=== PATIENT | male | born 1940 | race Caucasian/White ===

== ENCOUNTER → 2016-08-18 | Outpatient (REF) | payer MEDICARE, MEDICAID | LOC: M LAB REF 09:45 | PROVIDERS: ATTEND Internal Medicine Medical Oncology | DX: C95.90 Leukemia, unspecified not having achieved remission (principal) ==

== ENCOUNTER → 2017-06-20 | Outpatient (REF) | payer MEDICARE, MEDICAID | LOC: M LAB REF 12:53 | DX: D70.9 Neutropenia, unspecified (principal) | CPT/HCPCS: 88300 ==

== ENCOUNTER 2019-04-01 15:59 | Emergency (ER) | payer MEDICARE, MEDICAID ==
[~2019-04-01] VITALS: Ht 188 cm; Wt 60.9 kg
[2019-04-01] MEDS ORDERED: FURO20TA2 PO (17:51)
[2019-04-01] MEDS ORDERED: COLE625TAB PO (17:51)
[2019-04-01] MEDS ORDERED: POTA10CA32 PO (17:51)
[2019-04-01 18:07] LABS: HEMATOCRIT 30.2 % (42.0-52.0); HEMOGLOBIN 9.7 g/dl (13.5-17.5); MEAN CORPUSCULAR HEMOGLOBIN 36.5 pg (27.0-33.0); MEAN CORPUSCULAR HGB CONC 32.1 g/dl (32.0-36.5); MEAN CORPUSCULAR VOLUME 113.5 fl (80.0-96.0); RED BLOOD COUNT 2.66 10^6/uL (4.30-6.10)
--- NOTE | 2019-04-01 18:20 | REP ---
PA and lateral chest: There are no comparisons. Lung harris are hyperinflated. There are no infiltrates. No pleural effusions. There are no masses or nodules. Cardiac size is normal. The joselito and mediastinum unremarkable. There is diffuse demineralization. There is an age indeterminate fracture of the right humeral neck. Impression: Hyperinflation. No infiltrate, effusion or mass. Age indeterminate fracture of the right humeral neck. Electronically Signed by Brian Kemp MD 04/01/2019 06:12 P
[2019-04-01 18:33] LABS: ACETAMINOPHEN LEVEL < 2.0 UG/ML (10.0-30.0); ALBUMIN 3.4 GM/DL (3.2-5.2); ALT/SGPT 14 U/L (12-78); BILIRUBIN,DIRECT < 0.1 MG/DL (0.0-0.2); BILIRUBIN,TOTAL 0.3 MG/DL (0.2-1.0); BLOOD UREA NITROGEN 18 MG/DL (7-18); CALCIUM LEVEL 8.1 MG/DL (8.8-10.2); CARBON DIOXIDE LEVEL 28 MEQ/L (21-32); CHLORIDE LEVEL 107 MEQ/L (98-107); CREATININE FOR GFR 0.87 MG/DL (0.70-1.30); ETHYL ALCOHOL (ETHANOL) < 0.003 % (0.000-0.010); GLOMERULAR FILTRATION RATE > 60.0 (>42); GLUCOSE, FASTING 82 MG/DL (70-100); POTASSIUM SERUM 4.2 MEQ/L (3.5-5.1); SALICYLATE LEVEL < 1.7 MG/DL (5.0-30.0); SODIUM LEVEL 140 MEQ/L (136-145); TOTAL PROTEIN 6.3 GM/DL (6.4-8.2)
[2019-04-01 18:38] LABS: PLATELET COUNT, AUTOMATED 70 10^3/uL (150-450); WHITE BLOOD COUNT 1.1 10^3/uL (4.0-10.0)
[2019-04-01 19:15] VITALS: BP 114/68
== END 2019-04-01 20:31 | disposition home or self-care (01) ==
LOC: M ED 15:59
DX: D70.9 Neutropenia, unspecified (principal); D69.6 Thrombocytopenia, unspecified; I51.9 Heart disease, unspecified; F79 Unspecified intellectual disabilities; Z79.899 Other long term (current) drug therapy
CPT/HCPCS: 36415; 71046; 80048; 80076; 84443; 85027; 85049; 85055; 86850; 86900; 86901; 99284; G0480

== ENCOUNTER → 2020-06-08 | Outpatient (REF) | payer MEDICARE, MEDICAID ==
[~2020-06-08] MED LIST: CIPR-249 PO; COLE625TAB PO; FURO20TA2 PO; POTA10CA32 PO
[2020-06-08 12:58] LABS: HEMATOCRIT 26.1 % (42.0-52.0); HEMOGLOBIN 8.5 g/dl (13.5-17.5); MEAN CORPUSCULAR HEMOGLOBIN 39.4 pg (27.0-33.0); MEAN CORPUSCULAR HGB CONC 32.6 g/dl (32.0-36.5); RED BLOOD COUNT 2.16 10^6/uL (4.30-6.10)
[2020-06-08 13:17] LABS: MEAN CORPUSCULAR VOLUME 120.8 fl (80.0-96.0); PLATELET COUNT, AUTOMATED 77 10^3/uL (150-450)
[2020-06-08 13:39] LABS: ALBUMIN 3.4 GM/DL (3.2-5.2); ALT/SGPT 19 U/L (12-78); BILIRUBIN,TOTAL 0.4 MG/DL (0.2-1.0); BLOOD UREA NITROGEN 21 MG/DL (7-18); CALCIUM LEVEL 8.5 MG/DL (8.8-10.2); CARBON DIOXIDE LEVEL 32 MEQ/L (21-32); CHLORIDE LEVEL 104 MEQ/L (98-107); CHOLESTEROL LEVEL 173 MG/DL (<200); CHOLESTEROL RISK RATIO 2.306 (<5); CREATININE FOR GFR 0.86 MG/DL (0.70-1.30); GLOMERULAR FILTRATION RATE > 60.0 (>35); GLUCOSE, FASTING 90 MG/DL (70-100); HDL CHOLESTEROL 75 MG/DL (>40); LDL CHOLESTEROL 87 MG/DL (<100); NON-HDL-C 98 MG/DL; POTASSIUM SERUM 4.5 MEQ/L (3.5-5.1); SODIUM LEVEL 139 MEQ/L (136-145); TOTAL PROTEIN 6.7 GM/DL (6.4-8.2); TRIGLYCERIDES LEVEL 54 MG/DL (<150)
[2020-06-08 13:41] LABS: ATYPICAL LYMPH 4 % (0-5); BASOPHILS 1 % (0-1); EOSINOPHILS 2 % (0-3); LYMPHOCYTES 55 % (16-44); NEUTROPHILS 34 % (28-66)
[2020-06-08 13:42] LABS: ANISOCYTOSIS 1+; PLATELET ESTIMATE DECREASED (NORMAL)
[2020-06-08 13:43] LABS: MICROCYTOSIS 3+
== END ==
LOC: M SFHCADAM 08:02
PROVIDERS: ATTEND Physician Assistant Medical
DX: D61.9 Aplastic anemia, unspecified (principal); E78.2 Mixed hyperlipidemia

== ENCOUNTER 2020-11-10 10:35 | Inpatient (IN) | payer MEDICARE, MEDICAID ==
[~2020-11-10] VITALS: Ht 182.9 cm; Wt 57.9 kg
[2020-11-10 11:36] LABS: EOS % 1.1 % (0.0-3.0); HEMOGLOBIN 8.1 g/dl (13.5-17.5); LYMPH # 0.3 10^3/uL (1.5-5.0); LYMPH % 31.5 % (24.0-44.0); MEAN CORPUSCULAR HEMOGLOBIN 36.7 pg (27.0-33.0); MEAN CORPUSCULAR HGB CONC 32.4 g/dl (32.0-36.5); MEAN CORPUSCULAR VOLUME 113.1 fl (80.0-96.0); MONO % 3.4 % (2.0-8.0); NEUTROPHILS % 62.9 % (36.0-66.0); RED BLOOD COUNT 2.21 10^6/uL (4.30-6.10)
[2020-11-10 11:47] LABS: NEUTROPHILS # 0.6 10^3/uL (1.5-8.5); PLATELET COUNT, AUTOMATED 44 10^3/uL (150-450); WHITE BLOOD COUNT 0.9 10^3/uL (4.0-10.0)
[2020-11-10 11:59] LABS: ALBUMIN 2.4 GM/DL (3.2-5.2); BILIRUBIN,DIRECT 0.2 MG/DL (0.0-0.2); TOTAL PROTEIN 6.1 GM/DL (6.4-8.2)
[2020-11-10] MEDS ORDERED: NS 1,000 ML IV ONE (12:30)
[2020-11-10] MEDS ORDERED: ACETAMINOPHEN 325 MG TAB PO ONE (12:30)
[2020-11-10 13:18] LABS: INR 1.11; PROTHROMBIN TIME 14.7 SECONDS (12.7-14.5)
[2020-11-10 13:42] LABS: RSV AMPLIFICATION NEGATIVE (NEGATIVE)
--- NOTE | 2020-11-10 13:43 | REP ---
INDICATION: abd pain. COMPARISON: Chest 04/01/2019. TECHNIQUE: Cross-table lateral and supine films of the abdomen and pelvis, frontal view chest. FINDINGS: There is no evidence of free intraperitoneal air and no compelling evidence for small bowel obstruction. Moderate air and fecal material scattered throughout the colon. Air is seen in several nondilated small bowel loops. No abnormal calcifications are visualized except for apparent phleboliths in the left pelvis. There are degenerative changes of the spine. There is infiltrate in the left upper lobe. The heart is not enlarged. The mediastinal silhouette is unremarkable. IMPRESSION: No evidence of free intraperitoneal air or obstruction. Left upper lobe infiltrate. <Electronically signed by Brian Liu > 11/10/20 [id number]
[2020-11-10 13:46] LABS: ALBUMIN 2.4 GM/DL (3.2-5.2); BILIRUBIN,DIRECT 0.3 MG/DL (0.0-0.2)
[2020-11-10] MEDS ORDERED: AZITHROMYCIN INJ 500 MG, VIAL MATE ADAPTER 1 EACH in NS 250 ML IV ONE (13:50)
[2020-11-10] MEDS ORDERED: cefTRIAXone SOD 1 GM in D5W MINI-BAG PLUS 50 ML IV ONE (13:50)
[2020-11-10] MEDS ORDERED: HOME MED LIST COMPLETE! XX SCH (14:20)
[2020-11-10] MEDS ORDERED: VITMTA PO (14:20)
[2020-11-10] MEDS ORDERED: ACETAMINOPHEN TAB 650MG DOSE (2X325MG) PO PRN (14:35)
[2020-11-10] MEDS ORDERED: ISOVUE-370 76% 100ML VIAL As Ordered ONE (14:42)
--- NOTE | 2020-11-10 14:58 | HPEPDOC ---
General Date of Admission 11/10/20 Date of Service: Nov 10, 2020 Chief Complaint The patient is a 80-year-old male admitted with a reason for visit of Diarrhea Weakness. Exam Limitations: Mild cognitive slowing History of Present Illness Patient is 80 years old male with past medical history aplastic anemia, cognitive disability, hyperlipidemia presented to hospital with generalized weakness. According to his sister for past 3 to 4 days patient developed generalized weakness with loss of appetite. According to her patient did not have any cough, fever, chills or dysuria. She stated he had up to 3 liquid bowel movements yesterday. Of note, patient follows by Dr. Chi for aplastic anemia In ER patient was found to have white blood count of 0.9, hemoglobin 8.1, platel et count of 44, sodium of 138, potassium 3.6. Abdominal/pelvis x-ray showed No evidence of free intraperitoneal air or obstruction. Left upper lobe infiltrate Home Medications Scheduled Colesevelam Hydrochloride (Welchol) 625 Mg Tablet, 625 MG PO DAILY, (Reported) Furosemide (Furosemide) 20 Mg Tablet, 20 MG PO DAILY, (Reported) Multivitamins (Thera M Plus Tablet) 1 Each Tablet, 1 TAB PO DAILY, (Reported) Potassium Chloride (Potassium Chloride) 10 Meq Capsule.er, 10 MG PO DAILY, (Reported) Allergies Coded Allergies: No Known Allergies (Unverified , 04/01/19) Past Medical History Medical History Aplastic anemia, hyperlipidemia, congenital cognitive impairment Surgical History Colonoscopy, findings of hemorrhoids Family History The patient's mother at the age of 40 from myocardial infarction. The patient's father at the age of 79 with a history of lung cancer and organic heart disease associated with tobacco use. Social History * Smoker: former Smoker Alcohol: Denies Drugs: denies A-FIB/CHADSVASC A-FIB History Current/History of A-Fib/PAF?: No Current PO Anticoag Therapy: No Review of Systems Constitutional: Reports: Fatigue; Denies: Chills, Fever Eyes: Denies: Pain ENT: Denies: Head Aches Skin: Denies: Rash Pulmonary: Denies: Dyspnea, Cough Cardiovascular: Denies: Chest Pain Gastrointestinal: Denies: Nausea Genitourinary: Denies: Dysuria Hematologic: Denies: Bruising Endocrine: Denies: Polydipsia Musculoskeletal: Denies: Neck Pain Neurological: Denies: Weakness Psych: Reports: Mood Normal Physical Examination General Exam: Positive: Alert, Cooperative Eye Exam: Positive: PERRLA ENT Exam: Positive: Atraumatic Neck Exam: Positive: Supple; Negative: JVD Chest Exam: Positive: Clear to auscultation Telemetry: Positive: No significant arrhythmia Abdomen Exam: Positive: Normal bowel sounds Extremity Exam: Negative: Clubbing Skin Exam: Positive: Nl turgor and temperature Neuro Exam: Positive: Cranial Nerves 3-12 NL Psych Exam: Negative: Oriented x 3 Vital Signs Vital Signs Date Time Temp Pulse Resp B/P (MAP) Pulse Ox O2 Delivery O2 Flow Rate FiO2 11/10/20 14:15 85 18 146/69 (94) 98 Room Air 11/10/20 10:48 99.7 Laboratory Data Labs 24H Laboratory Tests 2 11/10/20 11:21: Immature Granulocyte % (Auto) 1.1, Neutrophils (%) (Auto) 62.9, Lymphocytes (%) (Auto) 31.5, Monocytes (%) (Auto) 3.4, Eosinophils (%) (Auto) 1.1, Basophils (%) (Auto) 0.0, Neutrophils # (Auto) 0.6L, Lymphocytes # (Auto) 0.3L, Monocytes # (Auto) 0.0, Eosinophils # (Auto) 0.0, Basophils # (Auto) 0.0, Nucleated Red Blood Cells % (auto) 0.0, Immature Platelet Fraction 2.0, Total Bilirubin 1.0, Direct Bilirubin 0.2, Aspartate Amino Transf (AST/SGOT) 18, Alanine Aminotransferase (ALT/SGPT) 15, Alkaline Phosphatase 59, Total Protein 6.1L, Albumin 2.4L, Albumin/Globulin Ratio 0.6, Lipase 67L 11/10/20 11:22: POC Glucose (Misc Panel) 101, POC Sodium (Misc Panel) 138, POC Potassium (Misc Panel) 3.6, POC Chloride (Misc Panel) 98, POC Total CO2 (Misc Panel) 29.0H, POC Blood Urea Nitrogen (Misc Panel 21, POC Ionized Calcium (Misc Panel) 4.3L, POC Creatinine (Misc Panel) 0.8, POC Hematocrit (Misc Panel) 22.0L 11/10/20 12:54: Total Bilirubin 1.0, Direct Bilirubin 0.3H, Aspartate Amino Transf (AST/SGOT) 16, Alanine Aminotransferase (ALT/SGPT) 14, Alkaline Phosphatase 59, Total Protein 6.0L, Albumin 2.4L, Albumin/Globulin Ratio 0.7, Prothrombin Time 14.7H, Prothromb Time International Ratio 1.11, Coronavirus (COVID-19)(PCR) NEGATIVE, Influenza Type A (RT-PCR) NEGATIVE, Influenza Type B (RT-PCR) NEGATIVE, Respiratory Syncytial Virus (PCR) NEGATIVE CBC/BMP Laboratory Tests 11/10/20 11:21 Microbiology Microbiology 11/10/20 Blood Culture, Received Pending 11/10/20 Blood Culture, Received Pending Assessment/Plan Patient is 80 years old male with past medical history aplastic anemia, cognitive disability, hyperlipidemia presented to hospital with generalized weakness. According to his sister for past 3 to 4 days patient developed generalized weakness with loss of appetite. According to her patient did not have any cough, fever, chills or dysuria. She stated he had up to 3 liquid bowel movements yesterday. Of note, patient follows by Dr. Chi for aplastic anemia In ER patient was found to have white blood count of 0.9, hemoglobin 8.1, platelet count of 44, sodium of 138, potassium 3.6. Abdominal/pelvis x-ray showed No evidence of free intraperitoneal air or obstruction. Left upper lobe infiltrate Problems (1) Pancytopenia Status: Acute Problem Text: Secondary to aplastic anemia We will check blood culture, CT chest/abdomen/pelvis, procalcitonin, lactic acid I talked to Dr. Chi he recommended to start Neupogen 480 mg for 4 days. (2) Hyperlipidemia Status: Chronic Problem Text: Continue statin (3) Aplastic anemia Status: Chronic Problem Text: Follow-up with blacking wheel tender/oncologist in the outpatient settings (4) Physical deconditioning Status: Chronic Problem Text: PT/OT Plan / VTE VTE Prophylaxis Ordered?: No VTE Exclusion Pharmacological: Thrombocytopenia HARJINDER NGUYEN DO Nov 10, 2020 14:58
--- NOTE | 2020-11-10 15:51 | REP ---
INDICATION: Malignancy. COMPARISON: None. TECHNIQUE: Standard helical technique after the intravenous administration of 100 cc Isovue 370. FINDINGS: There is a small left pleural effusion. The liver, gallbladder, spleen, pancreas, adrenal glands are within normal limits. There is mild bilateral hydronephrosis. The abdominal aorta and para-aortic regions are within normal limits. There is no evidence of free free fluid or free air. The bowel loops are within normal limits. Retained barium is seen in the right colon and transverse colon from a previous radiographic procedure. I have no history or details. There is distention of the urinary bladder and likely responsible for the mild bilateral hydronephrosis. Bone window technique throughout the examination shows spinal, hip, sacroiliac joint degenerative changes. IMPRESSION: 1. Urinary bladder distension and mild bilateral hydronephrosis. 2. Small left pleural effusion. <Electronically signed by Jewel Orr > 11/10/20 [id number]
--- NOTE | 2020-11-10 15:53 | REP ---
INDICATION: Malignancy. COMPARISON: CT 06/19/2013. radiograph today. TECHNIQUE: CT chest performed following the intravenous administration of 100 cc of Isovue 370. Sagittal and coronal reconstruction images are performed. FINDINGS: Lungs: There is oval focal peripheral consolidative opacity in the left upper lobe which measures approximately 5.9 x 3.1 x 4.0 cm. A few air bronchograms are seen within this region. There is less dense patchy infiltrate surrounding this in the left upper lobe. The right lung is clear. Mediastinum: No adenopathy. Aleksandra: No adenopathy. Axilla: No adenopathy. Pleura: There is a small left pleural effusion. Heart: Not enlarged. Thoracic aorta: No aneurysm or dissection. Visualized osseous structures: There is mild compression of L1 which is likely chronic. There are mild diffuse degenerative changes of the spine.. IMPRESSION: Oval consolidative opacity peripherally in the left upper lobe with surrounding patchy infiltrate. The findings may represent pneumonia. However underlying neoplastic mass cannot be excluded. Recommend follow-up. Small left effusion. <Electronically signed by Brian Liu > 11/10/20 [id number]
[2020-11-10] MEDS: POTASSIUM CHLORIDE 10 MEQ SR TABLET PO SCH (16:57)
[2020-11-10] MEDS: MULTIVITAMINS/MINERALS THERAP 1 TAB PO SCH (16:57)
[2020-11-10] MEDS: FUROSEMIDE 20 MG TAB PO SCH (16:57)
[2020-11-10] MEDS: FILGRASTIM 480 MCG/0.8 ML SYRINGE (J1442) SC SCH (17:51)
[2020-11-10] MEDS: COLESEVELAM 625 MG TAB (WELCHOL) PO SCH (17:51)
[2020-11-10] MEDS ORDERED: TAMSULOSIN 0.4 MG CAP PO ONE (19:30)
[2020-11-10] MEDS: HEPARIN SOD (PORCINE) 5000UNITS/ML 1ML VIAL/SYRINGE SC SCH (21:00)
[2020-11-10] MEDS: cefTRIAXone SOD 2 GM in D5W MINI-BAG PLUS 50 ML IV SCH (23:00)
[2020-11-11] VITALS (13 sets, daily range): BP systolic 107–126; BP diastolic 52–96
[2020-11-11 06:14] LABS: HEMATOCRIT 21.2 % (42.0-52.0); MEAN CORPUSCULAR HEMOGLOBIN 36.6 pg (27.0-33.0); RED BLOOD COUNT 1.91 10^6/uL (4.30-6.10); WHITE BLOOD COUNT 1.4 10^3/uL (4.0-10.0)
[2020-11-11 06:27] LABS: PLATELET COUNT, AUTOMATED 39 10^3/uL (150-450)
[2020-11-11 06:49] LABS: ALBUMIN 1.9 GM/DL (3.2-5.2); ALT/SGPT 12 U/L (12-78); BILIRUBIN,TOTAL 0.5 MG/DL (0.2-1.0); BLOOD UREA NITROGEN 15 MG/DL (7-18); CALCIUM LEVEL 7.5 MG/DL (8.8-10.2); CARBON DIOXIDE LEVEL 28 MEQ/L (21-32); CHLORIDE LEVEL 107 MEQ/L (98-107); CREATININE FOR GFR 0.64 MG/DL (0.70-1.30); GLOMERULAR FILTRATION RATE > 60.0 (>35); GLUCOSE, FASTING 106 MG/DL (70-100); POTASSIUM SERUM 3.4 MEQ/L (3.5-5.1); SODIUM LEVEL 140 MEQ/L (136-145); TOTAL PROTEIN 5.2 GM/DL (6.4-8.2)
[2020-11-11] MEDS: POTASSIUM CHLORIDE 10 MEQ SR TABLET PO SCH (09:29)
[2020-11-11] MEDS: TAMSULOSIN 0.4 MG CAP PO SCH (09:30)
[2020-11-11] MEDS: FUROSEMIDE 20 MG TAB PO SCH (09:30)
[2020-11-11] MEDS: MULTIVITAMINS/MINERALS THERAP 1 TAB PO SCH (09:30)
[2020-11-11] MEDS: COLESEVELAM 625 MG TAB (WELCHOL) PO SCH (09:30)
[2020-11-11] MEDS: HEPARIN SOD (PORCINE) 5000UNITS/ML 1ML VIAL/SYRINGE SC SCH (09:31)
[2020-11-11] MEDS: FILGRASTIM 480 MCG/0.8 ML SYRINGE (J1442) SC SCH (10:34)
--- NOTE | 2020-11-11 10:52 | IPNPDOC ---
Text Note Date of Service The patient was seen on 11/11/20. NOTE Subjective: Patient was found to have urinary retention yesterday, Babcock neva ter was placed 1.7 L of clear urine was evacuated. No fever or chills overnight. Objective: GENERAL APPEARANCE: NAD HEENT: no scleral icterus, no JVD, EOMI CARDIOVASCULAR: S1S2 LUNGS: CTA ABDOMEN: soft & not tender w palpation MUSCULOSKELETAL: no cyanosis, no swelling INTEGUMENT: no generalized pallor NEUROLOGICAL: cranial nerve function from 2-12 intact, follows commands, speech not dysarthric Patient is 80 years old male with past medical history aplastic anemia, cognitive disability, hyperlipidemia presented to hospital with generalized weakness. According to his sister for past 3 to 4 days patient developed generalized weakness with loss of appetite. According to her patient did not have any cough, fever, chills or dysuria. She stated he had up to 3 liquid bowel movements yesterday. Of note, patient follows by Dr. Chi for aplastic anemia In ER patient was found to have white blood count of 0.9, hemoglobin 8.1, platelet count of 44, sodium of 138, potassium 3.6. Abdominal/pelvis x-ray showed No evidence of free intraperitoneal air or obstruction. Left upper lobe infiltrate Problems (1) Pancytopenia/generalized weakness Secondary to aplastic anemia Await blood culture,procalcitonin pending, lactic acid within normal limit I talked to Dr. Chi he recommended to start Neupogen 480 mg for 4 days. Leukocytes count improved Hemoglobin dropped to 7. Patient has generalized weakness and I will give 2 units of blood (2) Hyperlipidemia Continue statin (3) Aplastic anemia Follow-up with locket maker/oncologist in the outpatient settings (4) Physical deconditioning PT/OT Urinary retention CT abdomen/pelvis showed urinary bladder distension and mild bilateral hydr onephrosis Babcock catheter placed Follow-up with urologist in the outpatient setting Tamsulosin p.o. Community-acquired pneumonia CT chest showed Oval consolidative opacity peripherally in the left upper lobe with surrounding patchy infiltrate. The findings may represent pneumonia. However underlying neoplastic mass cannot be excluded. Continue azithromycin and ceftriaxone IV day 1. Incentive sp irometry Speech evaluation Await sputum culture VS,Fishbone, I+O VS, Fishbone, I+O Laboratory Tests 11/10/20 11:11/11/20 05:55 Vital Signs Date Time Temp Pulse Resp B/P (MAP) Pulse Ox O2 Delivery O2 Flow Rate FiO2 11/11/20 06:00 99.5 80 19 118/59 (78) 94 Room Air I&O- Last 24 Hours up to 6 AM 11/11/20 06:00 Intake Total 1395 ml Output Total 2350 ml Balance -955 ml HARJINDER NGUYEN Nov 11, 2020 10:52
[2020-11-11] MEDS: AZITHROMYCIN INJ 500 MG, VIAL MATE ADAPTER 1 EACH in NS 250 ML IV SCH (15:29)
[2020-11-11 21:05] LABS: HEMATOCRIT 27.2 % (42.0-52.0)
[2020-11-11 21:10] LABS: HEMOGLOBIN 9.1 g/dl (13.5-17.5)
[2020-11-11] MEDS: cefTRIAXone SOD 2 GM in D5W MINI-BAG PLUS 50 ML IV SCH (21:44)
[2020-11-12 06:00] VITALS: BP 110/60
[2020-11-12 09:08] LABS: HEMOGLOBIN 10.9 g/dl (13.5-17.5); MEAN CORPUSCULAR HEMOGLOBIN 34.6 pg (27.0-33.0); MEAN CORPUSCULAR VOLUME 104.8 fl (80.0-96.0); RED BLOOD COUNT 3.15 10^6/uL (4.30-6.10); WHITE BLOOD COUNT 2.2 10^3/uL (4.0-10.0)
[2020-11-12 09:14] LABS: PLATELET COUNT, AUTOMATED 46 10^3/uL (150-450)
[2020-11-12 09:40] LABS: FOLATE 12.5 NG/ML (>5.4)
[2020-11-12] MEDS: MULTIVITAMINS/MINERALS THERAP 1 TAB PO SCH (09:45)
[2020-11-12] MEDS: TAMSULOSIN 0.4 MG CAP PO SCH (09:45)
[2020-11-12] MEDS: COLESEVELAM 625 MG TAB (WELCHOL) PO SCH (09:45)
[2020-11-12 09:46] LABS: ALBUMIN 2.3 GM/DL (3.2-5.2); ALT/SGPT 16 U/L (12-78); BILIRUBIN,TOTAL 0.7 MG/DL (0.2-1.0); BLOOD UREA NITROGEN 17 MG/DL (7-18); CALCIUM LEVEL 8.9 MG/DL (8.8-10.2); CARBON DIOXIDE LEVEL 28 MEQ/L (21-32); CHLORIDE LEVEL 105 MEQ/L (98-107); CREATININE FOR GFR 0.77 MG/DL (0.70-1.30); GLOMERULAR FILTRATION RATE > 60.0 (>35); GLUCOSE, FASTING 106 MG/DL (70-100); MAGNESIUM LEVEL 2.2 MG/DL (1.8-2.4); POTASSIUM SERUM 3.5 MEQ/L (3.5-5.1); SODIUM LEVEL 138 MEQ/L (136-145); TOTAL PROTEIN 6.9 GM/DL (6.4-8.2)
[2020-11-12] MEDS: FUROSEMIDE 20 MG TAB PO SCH (09:58)
[2020-11-12] MEDS: POTASSIUM CHLORIDE 10 MEQ SR TABLET PO SCH (09:58)
[2020-11-12 10:11] LABS: ANISOCYTOSIS 3+; ATYPICAL LYMPH 1 % (0-5); EOSINOPHILS 3 % (0-3); LYMPHOCYTES 16 % (16-44); METAMYELOCYTES 1 % (0-0); MONOCYTES 4 % (0-5); NEUTROPHILS 75 % (28-66); PLATELET ESTIMATE MARKED DECREASE (NORMAL)
[2020-11-12] MEDS: FILGRASTIM 480 MCG/0.8 ML SYRINGE (J1442) SC SCH (11:26)
[2020-11-12 14:00] VITALS: BP 124/64
--- NOTE | 2020-11-12 14:18 | IPNPDOC ---
Text Note Date of Service The patient was seen on 11/12/20. NOTE Subjective: No acute events overnight. Patient was somnolent in the morning. Objective: GENERAL APPEARANCE: NAD HEENT: no scleral icterus, no JVD, EOMI CARDIOVASCULAR: S1S2 LUNGS: CTA ABDOMEN: soft & not tender w palpation MUSCULOSKELETAL: no cyanosis, no swelling INTEGUMENT: no generalized pallor NEUROLOGICAL: cranial nerve function from 2-12 intact, follows commands, speech not dysarthric Patient is 80 years old male with past medical history aplastic anemia, cognitiv e disability, hyperlipidemia presented to hospital with generalized weakness. According to his sister for past 3 to 4 days patient developed generalized weakness with loss of appetite. According to her patient did not have any cough, fever, chills or dysuria. She stated he had up to 3 liquid bowel movements yesterday. Of note, patient follows by Dr. Chi for aplastic anemia In ER patient was found to have white blood count of 0.9, hemoglobin 8.1, platelet count of 44, sodium of 138, potassium 3.6. Abdominal/pelvis x-ray showed No evidence of free intraperitoneal air or obstruction. Left upper lobe infiltrate Problems (1) Pancytopenia/generalized weakness Secondary to aplastic anemia blood culture negative, procalcitonin 0.16, lactic acid within normal limit Continue Neupogen 480 mg for 4 days. Leukocytes continues improving Patient received 2 units of blood yesterday, hemoglobin stable (2) Hyperlipidemia Continue statin (3) Aplastic anemia Follow-up with wood sawyer/oncologist in the outpatient settings (4) Physical deconditioning PT/OT Urinary retention CT abdomen/pelvis showed urinary bladder distension and mild bilateral hydronephrosis We will DC Babcock today, urination trial Follow-up with urologist in the outpatient setting Tamsulosin p.o. Community-acquired pneumonia CT chest showed Oval consolidative opacity peripherally in the left upper lobe with surrounding patchy infiltrate. The findings may represent pneumonia. However underlying neoplastic mass cannot be excluded. Continue azithromycin and ceftriaxone IV day 1. Incentive spirometry Await speech evaluation Await sputum culture Hypokalemia Replaced VS,Fishbone, I+O VS, Fishbone, I+O Laboratory Tests 11/11/20 20:49 11/12/20 08:27 Vital Signs Date Time Temp Pulse Resp B/P (MAP) Pulse Ox O2 Delivery O2 Flow Rate FiO2 11/12/20 06:00 99.7 86 17 110/60 (77) 94 Room Air I&O- Last 24 Hours up to 6 AM 11/12/20 06:00 Intake Total 1690 ml Output Total 1050 ml Balance 640 ml HARJINDER NGUYEN DO Nov 12, 2020 14:18
[2020-11-12] MEDS: AZITHROMYCIN INJ 500 MG, VIAL MATE ADAPTER 1 EACH in NS 250 ML IV SCH (15:45)
[2020-11-12 18:06] LABS: BLOOD UREA NITROGEN 18 MG/DL (7-18); CALCIUM LEVEL 7.7 MG/DL (8.8-10.2); CARBON DIOXIDE LEVEL 27 MEQ/L (21-32); CHLORIDE LEVEL 107 MEQ/L (98-107); CREATININE FOR GFR 0.64 MG/DL (0.70-1.30); GLOMERULAR FILTRATION RATE > 60.0 (>35); GLUCOSE, FASTING 101 MG/DL (70-100); SODIUM LEVEL 140 MEQ/L (136-145)
[2020-11-12 22:05] VITALS: BP 124/65
[2020-11-12] MEDS: cefTRIAXone SOD 2 GM in D5W MINI-BAG PLUS 50 ML IV SCH (22:52)
[2020-11-13 05:36] VITALS: BP 121/67
[2020-11-13 07:28] LABS: HEMATOCRIT 25.9 % (42.0-52.0); MEAN CORPUSCULAR HEMOGLOBIN 34.1 pg (27.0-33.0); MEAN CORPUSCULAR HGB CONC 32.8 g/dl (32.0-36.5); RED BLOOD COUNT 2.49 10^6/uL (4.30-6.10); WHITE BLOOD COUNT 2.5 10^3/uL (4.0-10.0)
[2020-11-13 07:50] LABS: HEMOGLOBIN 8.5 g/dl (13.5-17.5); PLATELET COUNT, AUTOMATED 41 10^3/uL (150-450)
[2020-11-13 07:59] LABS: ALBUMIN 1.8 GM/DL (3.2-5.2); ALT/SGPT 13 U/L (12-78); BILIRUBIN,TOTAL 0.4 MG/DL (0.2-1.0); BLOOD UREA NITROGEN 17 MG/DL (7-18); CALCIUM LEVEL 7.6 MG/DL (8.8-10.2); CARBON DIOXIDE LEVEL 28 MEQ/L (21-32); CHLORIDE LEVEL 106 MEQ/L (98-107); CREATININE FOR GFR 0.56 MG/DL (0.70-1.30); GLOMERULAR FILTRATION RATE > 60.0 (>35); GLUCOSE, FASTING 92 MG/DL (70-100); POTASSIUM SERUM 3.9 MEQ/L (3.5-5.1); SODIUM LEVEL 140 MEQ/L (136-145)
[2020-11-13 08:37] LABS: EOSINOPHILS 2 % (0-3); LYMPHOCYTES 16 % (16-44); MONOCYTES 2 % (0-5); NEUTROPHILS 67 % (28-66); PLATELET ESTIMATE MARKED DECREASE (NORMAL)
[2020-11-13 08:38] LABS: ANISOCYTOSIS 2+; POLYCHROMASIA 1+
[2020-11-13] MEDS: TAMSULOSIN 0.4 MG CAP PO SCH (09:19)
[2020-11-13] MEDS: FUROSEMIDE 20 MG TAB PO SCH (09:20)
[2020-11-13] MEDS: POTASSIUM CHLORIDE 10 MEQ SR TABLET PO SCH (09:20)
[2020-11-13] MEDS: MULTIVITAMINS/MINERALS THERAP 1 TAB PO SCH (09:20)
[2020-11-13] MEDS: COLESEVELAM 625 MG TAB (WELCHOL) PO SCH (09:20)
[2020-11-13] MEDS: FILGRASTIM 480 MCG/0.8 ML SYRINGE (J1442) SC SCH (11:11)
[2020-11-13] MEDS ORDERED: LEVO750T13 PO (12:06)
[2020-11-13] MEDS ORDERED: FLOM0.4C39 PO (12:06)
[2020-11-13] MEDS: AZITHROMYCIN INJ 500 MG, VIAL MATE ADAPTER 1 EACH in NS 250 ML IV SCH (15:12)
--- NOTE | 2020-11-13 17:06 | DS.PDOC ---
Discharge Summary General Date of Admission Nov 10, 2020 at 14:33 Date of Discharge 11/13/20 Discharge Summary PROCEDURES PERFORMED DURING STAY: [None]. ADMITTING DIAGNOSES: Pancytopenia/generalized weakness Hyperlipidemia Aplastic anemia Physical deconditioning Urinary retention Community-acquired pneumonia Hypokalemia DISCHARGE DIAGNOSES: Pancytopenia/generalized weakness Hyperlipidemia Aplastic anemia Physical deconditioning Urinary retention Community-acquired pneumonia Hypokalemia COMPLICATIONS/CHIEF COMPLAINT: Neutropenia,Unspecified. HISTORY OF PRESENT ILLNESS: Patient is 80 years old male with past medical history aplastic anemia, cognitive disability, hyperlipidemia presented to hospital with generalized weakness. According to his sister for past 3 to 4 days patient developed generalized weakness with loss of appetite. According to her patient did not have any cough, fever, chills or dysuria. She stated he had up to 3 liquid bowel movements yesterday. Of note, patient follows by Dr. Chi for aplastic anemia In ER patient was found to have white blood count of 0.9, hemoglobin 8.1, platelet count of 44, sodium of 138, potassium 3.6. Abdominal/pelvis x-ray showed No evidence of free intraperitoneal air or obstruction. Left upper lobe infiltrate HOSPITAL COURSE: During the hospital stay the following issue addressed (1) Pancytopenia/generalized weakness Secondary to aplastic anemia blood culture negative, procalcitonin 0.16, lactic acid within normal limit Patient received Neupogen 480 mg, neutropenia improved Patient received 2 units, hemoglobin stable (2) Hyperlipidemia Continue statin (3) Aplastic anemia Follow-up with twister tender/oncologist in the outpatient settings (4) Physical deconditioning PT/OT Urinary retention CT abdomen/pelvis showed urinary bladder distension and mild bilateral hydronephrosis Patient was treated with Babcock placement, Babcock catheter was removed yesterday Follow-up with urologist in the outpatient setting Tamsulosin p.o. Community-acquired pneumonia CT chest showed Oval consolidative opacity peripherally in the left upper lobe with surrounding patchy infiltrate. The findings may represent pneumonia. However underlying neoplastic mass cannot be excluded. Patient received azithromycin and ceftriaxone IV . Incentive spirometry. Recommended to repeat CT of the chest in 6 months Hypokalemia Replaced DISCHARGE MEDICATIONS: Please see below. ALLERGIES: Please see below. PHYSICAL EXAMINATION ON DISCHARGE: VITAL SIGNS: Please see below. GENERAL APPEARANCE: NAD HEENT: no scleral icterus, no JVD, EOMI CARDIOVASCULAR: S1S2 LUNGS: CTA ABDOMEN: soft & not tender w palpation MUSCULOSKELETAL: no cyanosis, no swelling INTEGUMENT: no generalized pallor NEUROLOGICAL: cranial nerve function from 2-12 intact, follows commands, speech not dysarthric LABORATORY DATA: Please see below. IMAGING: See above PROGNOSIS: Fair ACTIVITY: [As tolerated]. DIET: Regular ITEMS TO FOLLOWUP ON ON OUTPATIENT: Follow-up with PCP and twister tender DISCHARGE CONDITION: [Stable]. TIME SPENT ON DISCHARGE: 40 minutes. Vital Signs/I&Os Vital Signs Date Time Temp Pulse Resp B/P (MAP) Pulse Ox O2 Delivery O2 Flow Rate FiO2 11/13/20 05:36 98.9 92 16 121/67 (85) 98 Room Air I&O- Last 24 Hours up to 6 AM 11/13/20 06:00 Intake Total 2010 ml Output Total 750 ml Balance 1260 ml Laboratory Data Labs 24H Laboratory Tests 2 11/13/20 06:46: Neutrophils (%) (Auto) , Nucleated Red Blood Cells % (auto) 0.0, Neutrophils 67H, Band Neutrophils 13H, Lymphocytes (Manual) 16, Monocytes (Manual) 2, Eosinophils (Manual) 2, Polychromasia 1+, Anisocytosis 2+, Platelet Estimate MARKED DECREASE, Anion Gap 6L, Glomerular Filtration Rate > 60.0, Calcium Level 7.6L, Magnesium Level 2.0, Total Bilirubin 0.4, Aspartate Amino Transf (AST/SGOT) 9, Alanine Aminotransferase (ALT/SGPT) 13, Alkaline Phosphatase 55, Total Protein 5.0#L, Albumin 1.8#L, Albumin/Globulin Ratio 0.6 CBC/BMP Laboratory Tests 11/13/20 06:46 Microbiology Microbiology 11/10/20 Blood Culture - Preliminary, Resulted No Growth after 72 hours. All specime... 11/10/20 Blood Culture - Preliminary, Resulted No Growth after 72 hours. All specime... 11/10/20 Blood Culture - Preliminary, Resulted No Growth after 72 hours. All specime... Discharge Medications Scheduled Colesevelam Hydrochloride (Welchol) 625 Mg Tablet, 625 MG PO DAILY, (Reported) Furosemide (Furosemide) 20 Mg Tablet, 20 MG PO DAILY, (Reported) Levofloxacin (Levofloxacin) 750 Mg Tablet, 1 TAB PO DAILY Multivitamins (Thera M Plus Tablet) 1 Each Tablet, 1 TAB PO DAILY, (Reported) Potassium Chloride (Potassium Chloride) 10 Meq Capsule.er, 10 MG PO DAILY, (Reported) Tamsulosin HCl (Flomax) 0.4 Mg Capsule, 0.8 MG PO DAILY Allergies Coded Allergies: No Known Allergies (Unverified , 04/01/19) HARJINDER NGUYEN DO Nov 13, 2020 17:06
== END 2020-11-13 18:49 | disposition home health service (06) | DRG 808 ==
LOC: M ED 10:35 → EDBD 10:35 → M ED INP 14:33 → ENRESERV 14:58 → M MS5PR 15:51
PROVIDERS: ADMIT Internal Medicine; ATTEND Internal Medicine
DX: D61.818 Other pancytopenia (principal); J18.9 Pneumonia, unspecified organism; E78.5 Hyperlipidemia, unspecified; F71 Moderate intellectual disabilities; Z72.3 Lack of physical exercise; Z20.822 Contact with and (suspected) exposure to COVID-19; Z87.891 Personal history of nicotine dependence; Z79.899 Other long term (current) drug therapy; R33.9 Retention of urine, unspecified; R53.1 Weakness; E87.6 Hypokalemia

== ENCOUNTER → 2020-12-21 | Outpatient (CLI) | payer MEDICARE, MEDICAID ==
[~2020-12-21] MED LIST changes: +FLOM0.4C39 PO; +ISOVUE-370 76% 100ML VIAL As Ordered ONE; +LEVO750T13 PO; +VITMTA PO
--- NOTE | 2020-12-21 14:14 | REP ---
INDICATION: LOBAR PNEUMONIA, UNSPECIFIED ORGANISM COMPARISON: Multiple the latest 11/10/2020 TECHNIQUE: Standard helical technique after the intravenous administration of 100 cc Isovue 370 FINDINGS: The mediastinum and pulmonary joselito are stable. No mass or adenopathy has developed. There are no pleural effusions. There may be a minimal pericardial effusion. The pleural fluid collection seen previously on the left has resolved. There is no change in the imaged upper abdomen or imaged osseous structures. Evaluation of the lung harris shows significant improvement in the patchy airspace and interstitial opacity in the left upper lobe with almost complete resolution. No new abnormal nodules, masses, or opacities have developed. IMPRESSION: There is been significant improvement as described above, however, follow-up to complete resolution is suggested. Other findings as described above. <Electronically signed by Jewel Orr > 12/21/20 [id number]
== END ==
LOC: M RAD 11:32
PROVIDERS: ATTEND Internal Medicine Infectious Disease
DX: J18.1 Lobar pneumonia, unspecified organism (principal)

== ENCOUNTER 2021-01-11 00:58 | Inpatient (IN) | payer MEDICARE, MEDICAID ==
[~2021-01-11] VITALS: Ht 182.9 cm; Wt 53.6 kg
[~2021-01-11 00:58] MED LIST changes: -ISOVUE-370 76% 100ML VIAL As Ordered ONE
--- OUTSIDE RECORDS SUMMARY | 2021-01-11 01:01 | CCD ---
Author Author [email or web address] Organization [email or web address] Address Unknown Phone Unavailable Care Team Providers Care Corporate Account Executive Name Role Phone Elton Mane Unavailable PROBLEMS Type Condition ICD9-CM Code [id number] Code Onset Dates Condition S tatus W/U Status Risk SNOMED Code Notes Problem Abnormal chest CT R93.89 Active confirmed 16 472996244981804 Problem Pancytopenia D61.818 Active confirmed 053587 005 Problem Aplastic anemia D61.9 Active confirmed 3060 43073 Problem Mixed hyperlipidemia E78.2 Active confirmed 416692655 Problem Age-related nuclear cataract, right eye H25.11 Active confirmed [id number] ALLERGIES No Known Allergies ENCOUNTERS from 1940 to 2020-12-15 Encounter Location Date Provider Diagnosis [facility] Urology [address] [phone] [place] [address] Nov, Elton Kiranood Urinary retention R33.9 IMMUNIZATIONS Vaccine Route Administration Date Status TDAP 0.5mL Boostrix IM Intramuscular Dec 01, 2020 Administere d Prevnar Pharmacy Given Unknown July 09, 2015 Administe red Influenza Pharmacy Given Unknown Dec 02, 2019 Adminis tered Pneumococcal Adult 0.5mL Pneumovax 23 IM Intramuscular Dec 01, 2020 Administered Pneumococcal Adult 0.5mL Pneumovax 23 Unknown Dec 17 09 Administered TDAP 0.5mL (Boostrix) Unknown Jan 02, 2010 Administer ed SOCIAL HISTORY Tobacco Use: Social History Observation Description Date Details (start date - stop date) Former Smoker Sex Assigned At : Social History Observation Description Sex Assigned At Unknown Audit Question Answer Notes Total Score: 0 Interpretation: Alcohol Education Language: Question Answer Notes Languages spoken: Serbian Adventism: Question Answer Notes Adventism 08 Druze Domestic Violence: Question Answer Notes Status: Single Sexual Hx: Question Answer Notes Had sex in the last 12 months (vaginal, oral, or anal)? No Have you ever had an STD? No Drug and Alcohol Question Answer Notes Total Score: 0 Interpretation: No problems reported Alcohol Screening: Question Answer Notes Did you have a drink containing alcohol in the past year? No Points 0 Interpretation Negative Tobacco Use: Question Answer Notes Are you a: former smoker former smoker REASON FOR REFERRAL No Information VITAL SIGNS Weight 128 lbs Nov, Weight-kg 58.06 kg Nov, Height 6'1" in Nov, BMI 16.89 kg/m2 Nov, Heart Rate 76 /min Nov, Respiratory Rate 18 /min Nov, Temperature 98.0 degrees Fahrenheit Nov, Oximetry 100 Nov, Blood pressure systolic 118 mm Hg Nov, Blood pressure diastolic 62 mm Hg Nov, MEDICATIONS Medication SIG (Take, Route, Frequency, Duration) Notes Start Da te End Date Status Thera M Plus - 1 tab Orally Daily Nov, Active Tamsulosin HCl 0.4 MG 2 capsules Orally Daily Nov, Active Nystatin 887555 UNIT/GM 1 application Externally Twice a day for 10 days Nov, Active Welchol 625 MG 1 tab Orally Once a day for 90 day(s) Active Furosemide 20 MG 1 tablet Oral daily as needed Active PROCEDURES from 1940 to 2020-12-15 Procedure Date Ordered Result Body Site uro PVR (Post Voiding Residual) Bladder Scan 2020-11-24 N/A RESULTS No Results REASON FOR VISIT urinary retention MEDICAL (GENERAL) HISTORY Type Description Date Medical History aplastic anemia - mgmt Walker/ needs [facility] referral Medical History hyperlipidemia Medical History MR Medical History 03/2010 Colonoscopy, Mike NBIH other alcantar normal Medical History 03/2010 EGD Mike irreg Z line, HH [facility]. Surgical History Cataracy surgery Bilateral 2019 Hospitalization History [facility] - neutropenia 11/09/20- Goals Section No Information Health Concerns No Information MEDICAL EQUIPMENT No Information MENTAL STATUS No Information FUNCTIONAL STATUS No Information ASSESSMENTS Encounter Date Diagnosis Assessment Notes Treatment Notes Treatm ent Clinical Notes Nov, Urinary retention (ICD-10 - R33.9) Will maintain patient on Flomax he was prescribed 0.4 mg 2 tablets daily we'll keep patient on same dose. Return to clinic in a year. Sister informed to call if any change in urination. PLAN OF TREATMENT Medication Medication Name Sig Start Date Stop Date Nystatin 137428 UNIT/GM 1 application Externally Twice a day for 10 days 28 Nov, 2020 Treatment Notes Assessment Notes Clinical Notes Urinary retention Will maintain chanelen t on Flomax he was prescribed 0.4 mg 2 tablets daily we'll keep patient on same dose.Return to clinic in a year. Sister informed to call if any change in urination. Treatment Notes Test Name Order Date Voiding Trial 2020-11-24 Next Appt Details Provider Name:Td Arrieta, 2020-12-05 8 10:00:00 AM, [address] [facility], , [place], [address], Provider Name:Patti Grant, 2021-02-05 10:30:00 AM, [address], , [place], [address], Provider Name:Tiny Rothman, 2021-11-05 1 01:45:00 PM, [address], , [place], [address], Insurance Providers Payer Name Payer Address Payer Phone Insured Name Patient Relati onship to Insured Coverage Start Date Coverage End Date MEDICARE Part A and B [address] [facility] [phone] NEEL ASIF self MEDICAID [employer] [address] [facility] [id number] NEEL ASIF self
--- OUTSIDE RECORDS SUMMARY | 2021-01-11 01:01 | CCD ---
Author Author [facility] Organization [facility] [employer] Address Unknown Phone Unavailable Care Team Providers Care Table Filler Name Role Phone Td Arrieta Unavailable PROBLEMS Type Condition ICD9-CM Code [id number] Code Onset Dates Condition S tatus W/U Status Risk SNOMED Code Notes Problem Abnormal chest CT R93.89 Active confirmed 16 176209355552204 Problem Pancytopenia D61.818 Active confirmed 468069 005 Problem Aplastic anemia D61.9 Active confirmed 3060 36005 Problem Mixed hyperlipidemia E78.2 Active confirmed 827448198 Problem Age-related nuclear cataract, right eye H25.11 Active confirmed [id number] ALLERGIES No Known Allergies ENCOUNTERS from 1940 to 2020-12-14 Encounter Location Date Provider Diagnosis [facility] Infectious Disease [place] [address] [facility] [phone] [place] [address] 28 Nov, 2020 Td Arrieta Aplastic anemia D61. 9 ; Pancytopenia D61.818 ; Left upper lobe consolidation J18.1 ; Yeast infection of the skin B37.2 ; Need for pneumococcal vaccination Z23 and Need for vaccination with combined kzozbcjfsq-zjemmnp-zjwcudkqz (DTaP) Z23 IMMUNIZATIONS Vaccine Route Administration Date Status TDAP [...] Education Language: Question Answer Notes Languages spoken: Mexican Methodist: Question Answer Notes Methodist 08 Baptism Domestic Violence: Question Answer Notes Status: Single [...] FOR REFERRAL No Information VITAL SIGNS Weight 129 lbs Nov, Weight-kg 58.51 kg Nov, Height 6'1" in Nov, BMI 17.02 kg/m2 Nov, Heart Rate 70 /min Nov, Respiratory Rate 18 /min Nov, Temperature 97.8 degrees Fahrenheit Nov, Oximetry 99% Nov, Blood pressure systolic 104 mm Hg Nov, Blood pressure diastolic 62 mm Hg Nov, MEDICATIONS Medication SIG (Take, Route, Frequency, Duration) Notes Start Da te End Date Status Thera M Plus - 1 tab Orally Daily Nov, Active Tamsulosin HCl 0.4 MG 2 capsules Orally Daily Nov, Active Nystatin 444251 UNIT/GM 1 application Externally Twice a day for 10 days Nov, Active Welchol 625 MG 1 tab Orally Once a day for 90 day(s) Active Furosemide 20 MG 1 tablet Oral daily as needed Active PROCEDURES from 1940 to 2020-12-14 Procedure Date Ordered Result Body Site Imm: Pneumovax 23 0.5mL IM Pneumococcal 2020-12-01 N/A Imm: Boostrix 0.5mL IM TDAP 2020-12-01 N/A RESULTS No Results REASON FOR VISIT antibiotic prophylasis MEDICAL (GENERAL) HISTORY Type Description Date Medical History aplastic anemia - mgmt Walker/ needs [facility] referral Medical History hyperlipidemia Medical History MR Medical History 03/2010 Colonoscopy, Mike NBIH other alcantar normal Medical History 03/2010 EGD Mike irreg Z line, HH [facility] . Surgical History Cataracy surgery Bilateral 2019 Hospitalization History [facility] - neutropenia 11/09/20- Goals Section No Information Health Concerns No Information MEDICAL EQUIPMENT No Information MENTAL STATUS No Information FUNCTIONAL STATUS No Information ASSESSMENTS Encounter Date Diagnosis Assessment Notes Treatment Notes Treatm ent Clinical Notes Nov, Aplastic anemia (ICD-10 - D61.9) Managed by Dr. Chi with Procrit infusions. At this time would not recommend antibiotic prophylaxis. Patient has only had one infection which resolved with antibiotics. Additionally, there is no guidleine recommendation for antibiotic prophylaxis with aplastic anemia or neutropenia that is not related to chemotherapy. Patient should continue with daily mouthwash and good oral care,, he is edentulous and has dentures but he uses mouthwash. We also discussed keeping up to date with vaccinations. Will give pneumovax and tdap today. Recommended COVID-19 vaccination. We discussed avoiding foods with high infection risk including undercooked meats, unpasterised dairy products, cheese with mold, and fruits and vegetables without being peeled or cooked. Patient has neutropenia with ANC fluctuating between 250 and 1000 but no hospitalization for severe infection except for this recent pneumonia discharged after 3 days. Risk of chronic suppressive therapy with antibiotics prophylaxis increase the risk of C. difficile colitis and multidrug-resistant pathogens and are not routinely recommended per up-to-date. Nov, Pancytopenia (ICD-10 - D61.818) Related to above. Nov, Left upper lobe consolidation (ICD-10 - J18.1) Symptomatically resolved. Mark repeat CT chest in mid December to re-evaluatate area of consolidation, there is no underlying neoplasm. Patient is also at risk of having aspergillus pneumonia with his neutropenia. If ANC remains less than 200 then voriconazole prophylaxis would be indicated Nov, Yeast infection of the skin (ICD-10 - B37.2) Will treat with topical nystatin for 10 days. Advised to call urology if no improvement after 10 days he was seen last week for urinary retention Nov, Need for pneumococcal vaccination (ICD-10 - Z23) Due for second pneumovax after prevnar. Also recommended patient gets Covid vaccination Nov, Need for vaccination with co mbined cehkfsiase-wlxgemv-ndfepqvqt (DTaP) (ICD-10 - Z23) Due for tdap vaccine. PLAN OF TREATMENT Medication Medication Name Sig Start Date Stop Date Nystatin 452460 UNIT/GM 1 application Externally Twice a day for 10 days Nov, Treatment Notes Assessment Notes Clinical Notes Aplastic anemia Managed by Dr. Arti cornejo Procrit infusions. At this time would not recommend antibiotic prophylaxis. Patient has only had one infection which resolved with antibiotics. Additionally, there is no guidleine recommendation for antibiotic prophylaxis with aplastic anemia or neutropenia that is not related to chemotherapy. Patient should continue with daily mouthwash and good oral care,, he is edentulous and has dentures but he uses mouthwash. We also discussed keeping up to date with vaccinations. Will give pneumovax and tdap today. Recommended COVID-19 vaccination. We discussed avoiding foods with high infection risk including undercooked meats, unpasterised dairy products, cheese with mold, and fruits and vegetables without being peeled or cooked.Patient has neutropenia with ANC fluctuating between 250 and 1000 but no hospitalization for severe infection except for this recent pneumonia discharged after 3 days.Risk of chronic suppressive therapy with antibiotics prophylaxis increase the risk of C. difficile colitis and multidrug-resistant pathogens and are not routinely recommended per up-to-date. Pancytopenia Related to above. Left upper lobe consolidation Symptomati magaly resolved. Mark repeat CT chest in mid December to re-evaluatate area of consolidation, there is no underlying neoplasm. Patient is also at risk of having aspergillus pneumonia with his ne utropenia. If ANC remains less than 200 then voriconazole prophylaxis would be indicated Yeast infection of the skin Will treat margarita cornejo topical nystatin for 10 days. Advised to call urology if no improvement after 10 days he was seen last week for urinary retention Need for pneumococcal vaccination Due fo r second pneumovax after prevnar.Also recommended patient gets Covid vaccination Need for vaccination with combined dgobeuwjdh-ogntxmi-zjztrp sis (DTaP) Due for tdap vaccine. Treatment Notes Test Name Order Date [facility] CT Chest with contrast 2020-12-01 Next Appt Details 4 Weeks Reason:follow up, CT scan result s Provider Name:Td Arrieta, 2020-12-2 8 10:00:00 AM, [address] [place] [address], , [place], [place], [facility][note 2], Provider Name:Patti Grant, 2021-02-05 10:30:00 AM, [address], , [place], [address], Provider Name:Tiny Bryant Lorna, 2021-11-05 1 01:45:00 PM, [address], , [place], [address], Follow Up:4 Weeksfollow up, CT scan results Insurance Providers Payer Name Payer Address Payer Phone Insured Name Patient Relati onship to Insured Coverage Start Date Coverage End Date MEDICARE Part A and B [address] [facility] [phone] NEEL ASIF self MEDICAID [employer] [address] [facility] [id number] NEEL ASIF self
--- OUTSIDE RECORDS SUMMARY | 2021-01-11 01:01 | CCD ---
Author Author [facility] Organization [facility] [employer] Address Unknown Phone Unavailable Care Team Providers Care Communications Equipment Supervisor Name Role Phone Td Arrieta Unavailable PROBLEMS Type Condition ICD9-CM Code WTT55-KS Code Onset Dates Condition S tatus W/U Status Risk SNOMED Code Notes Problem Abnormal chest CT R93.89 Active confirmed 16 526991030868997 Problem Pancytopenia D61.818 Active confirmed 457780 005 Problem Aplastic anemia D61.9 Active confirmed 3060 23967 Problem Mixed hyperlipidemia E78.2 Active confirmed 392704701 Problem Age-related nuclear cataract, right eye H25.11 Active confirmed [id number] ALLERGIES No Known Allergies ENCOUNTERS from 1940 to 2021-01-08 Encounter Location Date Provider Diagnosis [facility] Infectious Disease [address] [phone] [place] [address] Dec, Td Arrieta Pancytopenia D61.818 ; Aplastic anemia D61.9 ; Left upper lobe consolidation J18.1 ; Yeast infection of the skin B37.2 ; Need for pneumococcal vaccination Z23 and Need for vaccination with combined twfgfabwyw-iyqohqi-yuqxgeruj (DTaP) Z23 IMMUNIZATIONS Vaccine Route Administration Date [...] Education Language: Question Answer Notes Languages spoken: Malay Mandaeism: Question Answer Notes Mandaeism 08 Mormon Domestic Violence: Question Answer Notes Status: Single [...] FOR REFERRAL No Information VITAL SIGNS Weight 123 lbs Dec, Weight-kg 55.79 kg Dec, Height 6'1" in Dec, BMI 16.23 kg/m2 Dec, Heart Rate 78 /min Dec, Respiratory Rate 18 /min Dec, Temperature 98 degrees Fahrenheit Dec, Oximetry 98% Dec, Blood pressure systolic 104 mm Hg Dec, Blood pressure diastolic 62 mm Hg Dec, MEDICATIONS Medication SIG (Take, Route, Frequency, Duration) Notes Start Da te End Date Status Tamsulosin HCl 0.4 MG TAKE 2 CAPSULES BY MOUTH DAILY for 30 Active Furosemide 20 MG 1 tablet Oral daily as needed Active Welchol 625 MG 1 tab Orally Once a day for 90 day(s) Active Nystatin 357478 UNIT/GM 1 application Externally Twice a day for 10 d ays Active Thera M Plus - 1 tab Orally Daily Nov, Active PROCEDURES No Information RESULTS No Results REASON FOR VISIT 1 month MEDICAL (GENERAL) HISTORY Type Description Date Medical History aplastic anemia - mgmt Walker/ needs [facility] referral Medical History hyperlipidemia Medical History MR Medical History 03/2010 Colonoscopy, Mike NBIH other alcantar normal Medical History 03/2010 EGD Mike irreg Z line, HH ot [facility]. Surgical History Cataracy surgery Bilateral 2019 Hospitalization History [facility] - neutropenia 11/09/20-11/13- Goals Section No Information Health Concerns No Information MEDICAL EQUIPMENT No Information MENTAL STATUS No Information FUNCTIONAL STATUS No Information ASSESSMENTS Encounter Date Diagnosis Assessment Notes Treatment Notes Treatm ent Clinical Notes Dec, Pancytopenia (ICD-10 - D61.818) Case has been discussed with Dr. Chi hematology oncology patient has follow-up tomorrow Dec, Aplastic anemia (ICD-10 - D61.9) Managed by [...] discussed keeping up to date with vaccinations. He received his Pneumovax and Tdap booster. Recommended COVID-19 vaccination and flu shot he received on Monday at time kidneys. We discussed avoiding foods with high infection risk including undercooked meats, unpasterised dairy products, cheese with mold, and fruits and vegetables without being peeled or cooked. Patient has neutropenia with ANC fluctuating between 250 and 1000 and 1 hospitalization for severe infection recent pneumonia discharged after 3 days. I recommended that he gets treated for infection rather than taking chronic suppressive therapy for prevention as he will develop multidrug-resistant pathogens and risk of C. difficile. If his ANC drops to less than 200 or if he has recurrent infection then would reconsider chronic suppressive therapy with antibiotics prophylaxis increase the risk of C. difficile colitis and multidrug- resistant pathogens and are not routinely recommended per up-to-date. Also if ANC is less than 200 will need voriconazole for Aspergillus prophylaxis Dec, Left upper lobe consolidation (ICD-10 - J18.1) Symptomatically resolved. Mark repeat CT chest in mid December to re-evaluatate area of consolidation, there is no underlying neoplasm. Patient is also at risk of having aspergillus pneumonia with his neutropenia. If ANC remains less than 200 then voriconazole prophylaxis would be indicated Dec, Yeast infection of the skin (ICD-10 - B37.2) Will treat with topical nystatin for 10 days. Advised to call urology if no improvement after 10 days he was seen last week for urinary retention Dec, Need for pneumococcal vaccination (ICD-10 - Z23) received 11/2020Dec, Need for vaccination with co mbined hqynjbwtfz-qumpwct-vqqyiitgg (DTaP) (ICD-10 - Z23) received tdap vaccine. Patient is planning to go on Monday nato and [facility] to get Covid vaccination and flu shot PLAN OF TREATMENT Medication Medication Name Sig Start Date Stop Date Nystatin 593913 UNIT/GM 1 application Externally Twice a day for 10 days Treatment Notes Assessment Notes Clinical Notes Pancytopenia Case has been discus sed with Dr. Chi hematology oncology patient has follow-up tomorrow Aplastic anemia Managed by Dr. Chi w ith Procrit infusions. At this time would not recommend antibiotic prophylaxis. Patient has only had one infection which resolved with antibiotics. Additionally, there is no [facility] recommendation for antibiotic prophylaxis with aplastic anemia or neutropenia that is not related to chemotherapy. Patient should continue with daily mouthwash and good oral care,, he is edentulous and has dentures but he uses mouthwash. We also discussed keeping up to date with vaccinations.He received his Pneumovax and Tdap booster. Recommended COVID-19 vaccination and flu shot he received on at time kidneys. We discussed avoiding foods with high infection risk including undercooked meats, unpasterised dairy products, cheese with mold, and fruits and vegetables without being peeled or cooked.Patient has neutropenia with ANC fluctuating between 250 and 1000 and 1 hospitalization for severe infection recent pneumonia discharged after 3 days. I recommended that he gets treated for infection rather than taking chronic suppressive therapy for prevention as he will develop multidrug-resistant pathogens and risk of C. difficile. If his ANC drops to less than 200 or if he has recurrent infection then would reconsider chronic suppressive therapy with antibiotics prophylaxis increase the risk of C. difficile colitis and multidrug-resistant pathogens and are not routinely recommended per up-to-date. Also if ANC is less than 200 will need voriconazole for Aspergillus prophylaxis Left upper lobe consolidation Symptomati magaly resolved. Mark repeat CT chest in mid December to re-evaluatate area of consolidation, there is no underlying neoplasm. Patient is also at risk of having aspergillus pneumonia with his ne utropenia. If ANC remains less than 200 then voriconazole prophylaxis would be indicated Yeast infection of the skin Will treat w ith topical nystatin for 10 days. Advised to call urology if no improvement after 10 days he was seen last week for urinary retention Need for pneumococcal vaccination receiv ed 11/2020 Need for vaccination with combined kplhdxopcl-mzannco-reliou sis (DTaP) received tdap vaccine.Patient is planning to go on Monday nato and [facility] to get Covid vaccination and flu shot Next Appt Details prn Reason: Provider Name:Patti Raissa Juanita, 2021-02-05 10:30:00 AM, [address], , [place], [address], Provider Name:Tiny Rothman, 2021-11-05 1 01:45:00 PM, [address], , [place], [address], Insurance Providers Payer Name Payer Address Payer Phone Insured Name Patient Relati onship to Insured Coverage Start Date Coverage End Date MEDICARE Part A and B [address] [facility] [id number] NEEL ASIF self MEDICAID [facility] [address] [facility] [id number] NEEL ASIF self
--- OUTSIDE RECORDS SUMMARY | 2021-01-11 01:02 | CCD ---
Author Author [facility] Organization [facility] Address Unknown Phone Unavailable Care Team Providers Care Manager Printing Name Role Phone Patti Grant Unavailable PROBLEMS Type Condition ICD9-CM Code LBF75-CQ Code Onset Dates Condition S tatus W/U Status Risk SNOMED Code Notes Problem Abnormal chest CT R93.89 Active confirmed 16 [id number] Problem Pancytopenia D61.818 Active confirmed 287021 005 Problem Aplastic anemia D61.9 Active confirmed 3060 68852 Problem Mixed hyperlipidemia E78.2 Active confirmed 194324441 Problem Age-related nuclear cataract, right eye H25.11 Active confirmed [id number] ALLERGIES No Known Allergies ENCOUNTERS from 1940 to 2020-12-08 Encounter Location Date Provider Diagnosis [place] [id number] [place] [id number] Nov, 2020 Patti Grant Urinary retention R33.9 ; Abnormal chest CT R93.89 and Aplastic anemia D61.9 IMMUNIZATIONS Vaccine Route Administration Date Status TDAP [...] Education Language: Question Answer Notes Languages spoken: Lithuanian Anglican: Question Answer Notes Anglican 08 Mu-Ism Domestic Violence: Question Answer Notes Status: Single [...] former smoker former smoker REASON FOR REFERRAL from 1940 to 2020-12-08 Reason urinary retention Diagnosis 1 Urinary retention (R33.9) Referral Organization [facility] Sorin Referring Provider First Name Patti Referring Provider Last Name Juanita Referring Provider Specialty Family Medicine Referred Organization [facility] Urology Referred Provider Angel Robles Referred Address [address] ,[phone] ,[place], [place],[address] Referred Provider Specialty Urology Referral Priority Routine Referral Appointment Date 2020-11-24 General Notes Carmina Brar 11/19/2020 3:35:17 PM > esent and faxed VITAL SIGNS Weight 128 lbs Nov, Height 6'1" in Nov, BMI 16.89 kg/m2 Nov, Heart Rate 96 /min Nov, Respiratory Rate 18 /min Nov, Temperature 98.4 degrees Fahrenheit Nov, Oximetry 98 Nov, Blood pressure systolic 112 mm Hg Nov, Blood pressure diastolic 60 mm Hg Nov, MEDICATIONS Medication SIG (Take, Route, Frequency, Duration) Notes Start Da te End Date Status Thera M Plus - 1 tab Orally Daily Nov, Active Tamsulosin HCl 0.4 MG 2 capsules Orally Daily Nov, Active Nystatin 790720 UNIT/GM 1 application Externally Twice a day for 10 days Nov, Active Welchol 625 MG 1 tab Orally Once a day for 90 day(s) Active Furosemide 20 MG 1 tablet Oral daily as needed Active PROCEDURES No Information RESULTS No Results REASON FOR VISIT [facility] D/C 11/13-Neutropenia MEDICAL (GENERAL) HISTORY Type Description Date Medical History aplastic anemia - mgmt Walker/ needs [facility] referral Medical History hyperlipidemia Medical History MR Medical History 03/2010 Colonoscopy, Mike NBIH other alcantar normal Medical History 03/2010 EGD Mike irreg Z line, HH [facility] Surgical History Cataracy surgery Bilateral 2019 Hospitalization History [facility] - neutropenia 11/09/20- Goals Section No Information Health Concerns No Information MEDICAL EQUIPMENT No Information MENTAL STATUS No Information FUNCTIONAL STATUS No Information ASSESSMENTS Encounter Date Diagnosis Assessment Notes Treatment Notes Treatm ent Clinical Notes Nov, Urinary retention (ICD-10 - R33.9) Pt was recently hospitalized, CT showed urinary retention with B hydro, will refer to Uro for f/u. Nov, Abnormal chest CT (ICD-10 - R93.89) Repeat CT chest in 6 months. Nov, Aplastic anemia (ICD-10 - D61.9) Follows with [facility] Heme. PLAN OF TREATMENT Medication Medication Name Sig Start Date Stop Date Nystatin 764503 UNIT/GM 1 application Externally Twice a day for 10 days Nov, Treatment Notes Assessment Notes Clinical Notes Urinary retention Pt was recently hospitalized , CT showed urinary retention with B hydro, will refer to Uro for f/u. Abnormal chest CT Repeat CT chest in 6 months. Aplastic anemia Follows with [facility] Heme. Referrals Referral Date Details 2020-11-24 2020-11-24, urinary retentio Angel calderon, [address], [place], [address], Next Appt Details change 12/24 appt to 3 months Reason: Provider Name:Td Arrieta, 2020-12-05 8 10:00:00 AM, [address] [facility], , [place], [address], Provider Name:Patti Grant, 2021-02-05 10:30:00 AM, [address], , [place], [address], Provider Name:Tiny Rothman, 2021-11-05 1 01:45:00 PM, [address], , [place], [address], Insurance Providers Payer Name Payer Address Payer Phone Insured Name Patient Relati onship to Insured Coverage Start Date Coverage End Date MEDICARE Part A and B [address] [facility] [id number] NEEL ASIF self MEDICAID [id number] [address] [facility] [id number] NEEL ASIF self
--- OUTSIDE RECORDS SUMMARY | 2021-01-11 01:02 | CCD ---
Author Author [facility] Organization [facility] Address Unknown Phone Unavailable Care Team Providers Care Field Cane Scale Clerk Name Role Phone Santiago, Edenilson PA Unavailable Unavailable Santiago, Edenilson PA Unavailable Unavailable Santiago, Edenilson PA Unavailable Unavailable Santiago, Edenilson PA Unavailable Unavailable Santiago, Edenilson PA Unavailable Unavailable Santiago, Edenilson PA Unavailable Unavailable Santiago, Edenilson PA Unavailable Unavailable Santiago, Edenilson PA Unavailable Unavailable Santiago, Edenilson PA Unavailable Unavailable Santiago, Edenilson PA Unavailable Unavailable Santiago, Edenilson PA Unavailable Unavailable Santiago, Edenilson PA Unavailable Unavailable Santiago, Edenilson PA Unavailable Unavailable Santiago, Edenilson PA Unavailable Unavailable Santiago, Edenilson PA Unavailable Unavailable Santiago, Edenilson PA Unavailable Unavailable Santiago, Edenilson PA Unavailable Unavailable Santiago, Edenilson PA Unavailable Unavailable Santiago, Edenilson PA Unavailable Unavailable Santiago, Edenilson PA Unavailable Unavailable Santiago, Edenilson PA Unavailable Unavailable Potter, M Minerva HELPER MAINTENANCE CLEANING Unavailable Unavailable Potter, M Minerva HELPER MAINTENANCE CLEANING Unavailable Unavailable Potter, M Minerva HELPER MAINTENANCE CLEANING Unavailable Unavailable Potter, M Minerva HELPER MAINTENANCE CLEANING Unavailable Unavailable Potter, M Minerva HELPER MAINTENANCE CLEANING Unavailable Unavailable Potter, M Minerva HELPER MAINTENANCE CLEANING Unavailable Unavailable Potter, M Minerva HELPER MAINTENANCE CLEANING Unavailable Unavailable Potter, M Minerva HELPER MAINTENANCE CLEANING Unavailable Unavailable Potter, M Minerva HELPER MAINTENANCE CLEANING Unavailable Unavailable Potter, M Minerva HELPER MAINTENANCE CLEANING Unavailable Unavailable Potter, M Minerva HELPER MAINTENANCE CLEANING Unavailable Unavailable Potter, M Minerva HELPER MAINTENANCE CLEANING Unavailable Unavailable Potter, M Minerva HELPER MAINTENANCE CLEANING Unavailable Unavailable Potter, M Minerva HELPER MAINTENANCE CLEANING Unavailable Unavailable Potter, M Minerva HELPER MAINTENANCE CLEANING Unavailable Unavailable Potter, M Minerva HELPER MAINTENANCE CLEANING Unavailable Unavailable Potter, M Minerva HELPER MAINTENANCE CLEANING Unavailable Unavailable Potter, M Minerva HELPER MAINTENANCE CLEANING Unavailable Unavailable Potter, M Minerva HELPER MAINTENANCE CLEANING Unavailable Unavailable Potter, M Minerva HELPER MAINTENANCE CLEANING Unavailable Unavailable Potter, M Minerva HELPER MAINTENANCE CLEANING Unavailable Unavailable Potter, M Minerva HELPER MAINTENANCE CLEANING Unavailable Unavailable Potter, M Minerva HELPER MAINTENANCE CLEANING Unavailable Unavailable Potter, M Minerva HELPER MAINTENANCE CLEANING Unavailable Unavailable Potter, M Minerva HELPER MAINTENANCE CLEANING Unavailable Unavailable Potter, M Minerva HELPER MAINTENANCE CLEANING Unavailable Unavailable Potter, M Minerva HELPER MAINTENANCE CLEANING Unavailable Unavailable Potter, M Minerva HELPER MAINTENANCE CLEANING Unavailable Unavailable Potter, M Minerva HELPER MAINTENANCE CLEANING Unavailable Unavailable Potter, M Minerva HELPER MAINTENANCE CLEANING Unavailable Unavailable Potter, M Minerva HELPER MAINTENANCE CLEANING Unavailable Unavailable Potter, M Minerva HELPER MAINTENANCE CLEANING Unavailable Unavailable Potter, M Minerva HELPER MAINTENANCE CLEANING Unavailable Unavailable Potter, M Minerva HELPER MAINTENANCE CLEANING Unavailable Unavailable Potter, M Minerva HELPER MAINTENANCE CLEANING Unavailable Unavailable Potter, M Minerva HELPER MAINTENANCE CLEANING Unavailable Unavailable Potter, M Minerva HELPER MAINTENANCE CLEANING Unavailable Unavailable Potter, M Minerva HELPER MAINTENANCE CLEANING Unavailable Unavailable Potter, M Minerva HELPER MAINTENANCE CLEANING Unavailable Unavailable Potter, M Minerva HELPER MAINTENANCE CLEANING Unavailable Unavailable Potter, M Minerva HELPER MAINTENANCE CLEANING Unavailable Unavailable Potter, M Minerva HELPER MAINTENANCE CLEANING Unavailable Unavailable Potter, M Minerva HELPER MAINTENANCE CLEANING Unavailable Unavailable Potter, M Minerva HELPER MAINTENANCE CLEANING Unavailable Unavailable Potter, M Minerva HELPER MAINTENANCE CLEANING Unavailable Unavailable Potter, M Minerva HELPER MAINTENANCE CLEANING Unavailable Unavailable Potter, M Minerva HELPER MAINTENANCE CLEANING Unavailable Unavailable Potter, M Minerva HELPER MAINTENANCE CLEANING Unavailable Unavailable Potter, M Minerva HELPER MAINTENANCE CLEANING Unavailable Unavailable Potter, M Minerva HELPER MAINTENANCE CLEANING Unavailable Unavailable Potter, M Minerva HELPER MAINTENANCE CLEANING Unavailable Unavailable Potter, M Minerva HELPER MAINTENANCE CLEANING Unavailable Unavailable Potter, M Minerva HELPER MAINTENANCE CLEANING Unavailable Unavailable Potter, M Minerva HELPER MAINTENANCE CLEANING Unavailable Unavailable Potter, M Minerva HELPER MAINTENANCE CLEANING Unavailable Unavailable Potter, M Minerva HELPER MAINTENANCE CLEANING Unavailable Unavailable Potter, M Minerva HELPER MAINTENANCE CLEANING Unavailable Unavailable Potter, M Minerva HELPER MAINTENANCE CLEANING Unavailable Unavailable Jeyson Correia MD, FACC Unavailable Unavailable Jeyson Correia MD, FACC Unavailable Unavailable Jeyson Correia MD, FACC Unavailable Unavailable Jeyson Correia MD, FACC Unavailable Unavailable Jeyson Correia MD, FACC Unavailable Unavailable Gabris, Jeyson Pyle MD, [facility] Unavailable Unavailable Gabris, Jeyson Pyle MD, [facility] Unavailable Unavailable Gabris, Jeyson Pyle MD, [facility] Unavailable Unavailable Gabris, Jeyson Pyle MD, [facility] Unavailable Unavailable Gabris, Jeyson Pyle MD, [facility] Unavailable Unavailable Gabris, Jeyson Pyle MD, [facility] Unavailable Unavailable Gabris, Jeyson Pyle MD, [facility] Unavailable Unavailable Gabris, Jeyson Pyle MD, [facility] Unavailable Unavailable Gabris, Jeyson Pyle MD, [facility] Unavailable Unavailable Gabris, Jeyson Pyle MD, [facility] Unavailable Unavailable Gabris, Jeyson Pyle MD, [facility] Unavailable Unavailable Gabris, Jeyson Pyle MD, [facility] Unavailable Unavailable Gabris, Jeyson Pyle MD, [facility] Unavailable Unavailable Gabris, eJyson Pyle MD, [facility] Unavailable Unavailable Gabris, Jeyson Pyle MD, [facility] Unavailable Unavailable Gabris, Jeyson Pyle MD, [facility] Unavailable Unavailable Gabris, Jeyson Pyle MD, [facility] Unavailable Unavailable Gabris, Jeyson Pyle MD, [facility] Unavailable Unavailable Gabris, Jeyson Pyle MD, [facility] Unavailable Unavailable Gabris, Jeyson Pyle MD, [facility] Unavailable Unavailable Gabris, Jeyson Pyle MD, [facility] Unavailable Unavailable Gabris, Jeyson Pyle MD, [facility] Unavailable Unavailable Gabris, Jeyson Pyle MD, [facility] Unavailable Unavailable Gabris, Jeyson Pyle MD, [facility] Unavailable Unavailable Gabris, Jeyson Pyle MD, [facility] Unavailable Unavailable Gabris, Jeyson Pyle MD, [facility] Unavailable Unavailable Gabris, Jeyson Pyel MD, [facility] Unavailable Unavailable Gabris, Jeyson Pyle MD, [facility] Unavailable Unavailable Gabris, Jeyson Pyle MD, [facility] Unavailable Unavailable Gabris, Jeyson Pyle MD, [facility] Unavailable Unavailable Gabris, Jeyson Pyle MD, [facility] Unavailable Unavailable Gabris, Jeyson Pyle MD, [facility] Unavailable Unavailable Gabris, Jeyson Pyle MD, [facility] Unavailable Unavailable Gabris, Jeyson Pyle MD, [facility] Unavailable Unavailable Gabris, Jeyson Pyle MD, [facility] Unavailable Unavailable Gabris, Jeyson Pyle MD, [facility] Unavailable Unavailable Gabris, Jeyson Pyle MD, [facility] Unavailable Unavailable Gabris, Jeyson Pyle MD, [facility] Unavailable Unavailable Gabris, Jeyson Pyle MD, [facility] Unavailable Unavailable Gabris, Jeyson Pyle MD, [facility] Unavailable Unavailable Gabris, Jeyson Pyle MD, [facility] Unavailable Unavailable Gabris, Jeyson Pyle MD, [facility] Unavailable Unavailable Gabris, Jeyson Pyle MD, [facility] Unavailable Unavailable Gabris, Jeyson Pyle MD, [facility] Unavailable Unavailable Gabris, Jeyson Pyle MD, FACC Unavailable Unavailable Gabris, Jeyson Pyle MD, FACC Unavailable Unavailable Gabris, Jeyson Pyle MD, FACC Unavailable Unavailable Gabris, Jeyson Pyle MD, FACC Unavailable Unavailable Gabris, Jeyson Pyle MD, FACC Unavailable Unavailable Gabris, Jeyson Pyle MD, FACC Unavailable Unavailable Gabris, Jeyson Pyle MD, FACC Unavailable Unavailable Gabris, Jeyson Pyle MD, FACC Unavailable Unavailable Gabris, Jeyson Pyle MD, FACC Unavailable Unavailable Gabris, Jeyson Pyle MD, FAC Unavailable Unavailable Gabris, Jeyson Pyle MD, FACC Unavailable Unavailable Gabris, Jeyson Pyle MD, FAC Unavailable Unavailable Gabris, Jeyson Pyle MD, FACC Unavailable Unavailable Gabris, Jeyson Pyle MD, FACC Unavailable Unavailable Gabris, Jeyson Pyle MD, FACC Unavailable Unavailable Gabris, Jeyson Pyle MD, FACC Unavailable Unavailable Gabris, Jeyson Pyle MD, FAC Unavailable Unavailable Gabris, Jeyson Pyle MD, FACC Unavailable Unavailable Gabris, Jeyson Pyle MD, FAC Unavailable Unavailable Gabris, Jeyson Pyle MD, FACC Unavailable Unavailable Gabris, Jeyson Pyle MD, FAC Unavailable Unavailable Gabris, Jeyson Pyle MD, FAC Unavailable Unavailable Re-disclosure Warning The records that you are about to access may contain information from federally-assisted alcohol or drug abuse programs. If such information is present, then the following federally mandated warning applies: This information has been disclosed to you from records protected by federal confidentiality rules (42 CFR part 2). The federal rules prohibit you from making any further disclosure of this information unless further disclosure is expressly permitted by the written consent of the person to whom it pertains or as otherwise permitted by 42 CFR part 2. A general authorization for the release of medical or other information is NOT sufficient for this purpose. The Federal rules restrict any use of the information to criminally investigate or prosecute any alcohol or drug abuse patient.The records that you are about to access may contain highly sensitive health information, the redisclosure of which is protected by Article 27-F of the [facility] Public Health law. If you continue you may have access to information: Regarding HIV / AIDS; Provided by facilities licensed or operated by the [facility] Office of Mental Health; or Provided by the [facility] Office for People With Developmental Disabilities. If such information is present, then the following [facility] mandated warning applies: This information has been disclosed to you from confidential records which are protected by state law. State law prohibits you from making any further disclosure of this information without the specific written consent of the person to whom it pertains, or as otherwise permitted by law. Any unauthorized further disclosure in violation of state law may result in a fine or senior living sentence or both. A general authorization for the release of medical or other information is NOT sufficient authorization for further disc losure. Encounters Encounter Providers Location Date Indications Data Source(s ) Outpatient [address] [place] [phone] 12/31/2020 12:00:00 AM EDT eCW1 (Formerly [facility]) Outpatient [address] [place] [phone] 12/01/2020 12:00:00 AM EDT eCW1 (Formerly [facility]) Outpatient [address] [place] [phone] 11/24/2020 12:00:00 AM EDT eCW1 ([facility]) (TCM) Transition of Care Visit [address] [place] [phone] 11/19/2020 12:00:00 AM EDT eCW1 ([facility]) Unknown [address] [place] [phone] 11/16/2020 12:00:00 AM EDT eCW1 ([facility]ly [facility]) Office Visit, Est Pt., Level 4 PC [address] [place] [address] 06/18/2020 12:00:00 AM EDT eCW1 ([facility]) Outpatient Attender: Minerva King NP 05/12/2020 0 8:15:00 AM EST STAT R31.9 munira., r/o stone vs blad mass, abd pain [facility] STAT R31.9 munira., r/o stone vs blad mass , abd pain OFFICE/OUTPATIENT VISIT, EST 05/06/2020Outpatient Attender: Hermila GRAYSON 05/06/2020 11:42:41 AM EST CHARTMAKER ([facility]) Unknown [address] [facility] [phone] 01/07/2020 12:00:00 AM EST eCW1 ([facility]) Office Visit, Est Pt., Level 4 PC [address] [place] [address] 12/05/2019 12:00:00 AM EDT eCW1 ([facility]) Outpatient Attender: Edenilson Correia MD, [facility] [email or web address] L 11/28/2019 12:00:00 AM EDT - 11/28/2019 08:54:16 AM EDT [facility] Immunizations Vaccine Date Status Description Data Source(s) pneumococcal polysaccharide PPV23 12/01/2020 12:11:00 PM EDT comple armando eCW1 ([facility]) pneumococcal polysaccharide PPV23 12/01/2020 12:11:00 PM EDT comple armando eCW1 ([facility]) pneumococcal polysaccharide PPV23 12/01/2020 12:11:00 PM EDT comple armando eCW1 ([facility]) pneumococcal polysaccharide PPV23 12/01/2020 12:11:00 PM EDT comple armando eCW1 ([facility]) Tdap 12/01/2020 12:02:00 PM EDT completed e CW1 ([facility]) Tdap 12/01/2020 12:02:00 PM EDT completed e CW1 ([facility]) Tdap 12/01/2020 12:02:00 PM EDT completed e CW1 ([facility]) Tdap 12/01/2020 12:02:00 PM EDT completed e CW1 ([facility]) IIV3. This is one of two codes replacing CVX 15, which is being retired. 12/02/2019 09:19:00 AM EDT completed eCW1 ([facility]) IIV3. This is one of two codes replacing CVX 15, which is being retired. 12/02/2019 09:19:00 AM EDT completed eCW1 ([facility]) IIV3. This is one of two codes replacing CVX 15, which is being retired. 12/02/2019 09:19:00 AM EDT completed eCW1 ([facility]) IIV3. This is one of two codes replacing CVX 15, which is being retired. 12/02/2019 09:19:00 AM EDT completed eCW1 ([facility]) IIV3. This is one of two codes replacing CVX 15, which is being retired. 12/02/2019 09:19:00 AM EDT completed eCW1 ([facility]) IIV3. This is one of two codes replacing CVX 15, which is being retired. 12/02/2019 09:19:00 AM EDT completed eCW1 ([facility]) IIV3. This is one of two codes replacing CVX 15, which is being retired. 12/02/2019 09:19:00 AM EDT completed eCW1 ([facility]) IIV3. This is one of two codes replacing CVX 15, which is being retired. 12/02/2019 09:19:00 AM EDT completed eCW1 ([facility]) INFLUENZA VIRUS VACCINE QUADRIVALENT 2019- (6 MOS AN D UP) 11/28/2019 12:00:00 AM EDT completed [facility] Medications Medication Brand Name Start Date Product Form Dose Route Admi nistrative Instructions Pharmacy Instructions Status Indications Reaction Description Data Source(s) 0.4 mg 12/19/2020 12:00:00 AM EDT capsule 60 TAKE TWO CAPSULES BY MOUTH EVERY DAY TAKE TWO CAPSULES BY MOUTH EVERY DAY SOLD: 12/23/2020 [facility] Nystatin 100 UNT/MG Topical Powder 100,000 unit/gram [place]STATI N 12/01/2020 12:00:00 AM EDT powder 15 APPLY TOPICALLY TO AFFECTED AREA TWO TIMES A DAY FOR 1O DAYS APPLY TOPICALLY TO AFFECTED AREA TWO TIMES A DAY FOR 1 O DAYS SOLD: 12/02/2020 [facility] Nystatin 100 UNT/MG Topical Powder Nystatin 359247 UNI T/GM Nystatin 298784 UNIT/GM 12/01/2020 12:00:00 AM EDT 1.0 {application} active Nystatin 820944 UNIT/GM eCW1 ([facility]) Nystatin 100 UNT/MG Topical Powder Nystatin 942501 UNI T/GM Nystatin 992827 UNIT/GM 12/01/2020 12:00:00 AM EDT 1.0 {application} active Nystatin 428653 UNIT/GM eCW1 ([facility]) Nystatin 100 UNT/MG Topical Powder Nystatin 115169 UNI T/GM Nystatin 690358 UNIT/GM 12/01/2020 12:00:00 AM EDT 1.0 {application} active Nystatin 160164 UNIT/GM eCW1 ([facility]) Thera M Plus - Thera M Plus - 11/13/2020 12:00:00 AM EDT active Thera M Plus - eCW1 ([facility]) Tamsulosin hydrochloride 0.4 MG Oral Capsule Tamsulosi n HCl 0.4 MG Tamsulosin HCl 0.4 MG 11/13/2020 12:00:00 AM EDT 2.0 {capsules} active Tamsulosin HCl 0.4 MG eCW1 ([facility]) Thera M Plus - Thera M Plus - 11/13/2020 12:00:00 AM EDT active Thera M Plus - eCW1 ([facility]) Tamsulosin hydrochloride 0.4 MG Oral Capsule Tamsulosi n HCl 0.4 MG Tamsulosin HCl 0.4 MG 11/13/2020 12:00:00 AM EDT 2.0 {capsules} active Tamsulosin HCl 0.4 MG eCW1 ([facility]) Thera M Plus - Thera M Plus - 11/13/2020 12:00:00 AM EDT active Thera M Plus - eCW1 ([facility]) Tamsulosin hydrochloride 0.4 MG Oral Capsule Tamsulosi n HCl 0.4 MG Tamsulosin HCl 0.4 MG 11/13/2020 12:00:00 AM EDT 2.0 {capsules} active Tamsulosin HCl 0.4 MG eCW1 ([facility]) Thera M Plus - Thera M Plus - 11/13/2020 12:00:00 AM EDT active Thera M Plus - eCW1 ([facility]) 750 mg 11/13/2020 12:00:00 AM EDT tablet 5 TAKE ONE TABLET BY MOUTH DAILY TAKE ONE TABLET BY MOUTH DAILY SOLD: 11/14/2020 [facility] Tamsulosin hydrochloride 0.4 MG Oral Capsule Tamsulosi n HCl 0.4 MG Tamsulosin HCl 0.4 MG 11/13/2020 12:00:00 AM EDT 2.0 {capsules} active Tamsulosin HCl 0.4 MG eCW1 ([facility]) 0.4 mg 11/13/2020 12:00:00 AM EDT capsule 60 TAKE 2 CAPSULES BY MOUTH DAILY TAKE 2 CAPSULES BY MOUTH DAILY SOLD: 11/14/2020 [facility] Thera M Plus - Thera M Plus - 11/13/2020 12:00:00 AM EDT active Thera M Plus - eCW1 ([facility]) 100 mg 05/06/2020 12:00:00 AM EST capsule 14 TAKE ONE CAPSULE BY MOUTH TWICE A DAY TAKE ONE CAPSULE BY MOUTH TWICE A DAY SOLD: 05/06/2020 [facility] Phenazopyridine hydrochloride 100 MG Ora l Tablet [Pyridium] Pyridium 100 mg tablet Pyridium 100 mg tablet 05/06/2020 12:00:00 AM EST 1 completed , Take 1 tablet orally every 8 hours for urinary burni ng 05/06/2020 CH[facility]MAKER ([facility]) NITROFURANTOIN, MACROCRYSTALS 25 MG / Ni trofurantoin, Monohydrate 75 MG Oral Capsule [Macrobid] Macrobid 100 mg capsule Macrobid 100 mg capsule 05/06/2020 12:00:00 AM EST 1 completed , Take 1 capsule orally Twice a day 05/06/2020 ALICIA ([facility]) 500 mg 02/25/2020 12:00:00 AM EST tablet 14 TAKE ONE TABLET BY MOUTH TWICE A DAY TAKE ONE TABLET BY MOUTH TWICE A DAY SOLD: 02/26/2020 [facility] 625 mg 12/09/2019 12:00:00 AM EDT tablet 90 TAKE ONE TABLET BY MOUTH EVERY DAY TAKE ONE TABLET BY MOUTH EVERY DAY SOLD: 10/14/2020 [facility] 625 mg 12/09/2019 12:00:00 AM EDT tablet 90 TAKE ONE TABLET BY MOUTH EVERY DAY TAKE ONE TABLET BY MOUTH EVERY DAY SOLD: 06/11/2020 [facility] 625 mg 12/09/2019 12:00:00 AM EDT tablet 90 TAKE ONE TABLET BY MOUTH EVERY DAY TAKE ONE TABLET BY MOUTH EVERY DAY SOLD: 03/10/2020 [facility] 625 mg 12/09/2019 12:00:00 AM EDT tablet 90 TAKE ONE TABLET BY MOUTH EVERY DAY TAKE ONE TABLET BY MOUTH EVERY DAY SOLD: 12/10/2019 [facility] Insurance Providers Payer name Policy type / Coverage type Policy ID Covered constitution party ID Covered constitution party's relationship to rosario Policy Rosario Plan Information MEDICARE [id number] SP [id number] M MEDICARE [id number] SP [id number] M MEDICARE [id number] SP [id number] MEDICARE A [id number] Self [id number] M MEDICARE [id number] Keri [id number] Medicare Part [place] of [place] Other 0 [id number] Self 0 Medicaid [facility] Other 02 [id number] Self 02 Medicaid [facility] Other 02 [id number] Self 02 Medicare Part [place] of [place] Other 0 [id number] Self 0 Medicaid [facility] Other 02 [id number] Self 02 Medicaid [facility] Other 02 [id number] Self 02 Medicare Part A of [place] Other [id number] Self Medicaid [facility] Other [id number] Self [id number] M MEDICARE [id number] SP [id number] M MEDICARE 4 [id number] 1 [id number] M [id number] MEDICAID [facility] [id number] SP [id number] MEDICAID [facility] [id number] SP [id number] MEDICAID [facility] [id number] SP [id number] MEDICAID [facility] [id number] SP [id number] MEDICAID [facility] [id number] SP [id number] MEDICAID [facility] [id number] SP [id number] [place] [id number] SP [id number] [place] [id number] SP [id number] MEDICAID [facility] [id number] SP [id number] MEDICAID [id number] Self [id number] MEDICAID [id number] SP [id number] [facility] MEDICAID [id number] SP [id number] [id number] SP [id number] [place] [id number] SP [id number] SEL[place] [id number] SP [id number] MEDICARE PART A [id number] SP [id number] MEDICARE PART A [id number] SP [id number] SEL[place] [id number] SP [id number] MEDICARE PART A [id number] SP [id number] S[place] [id number] SP [id number] MEDICARE PART A [id number] SP [id number] [place] [id number] SP [id number] SELF PAY MEDICARE PART A [id number] SP [id number] [place] [id number] SP [id number] MEDICARE PART A [id number] SP [id number] MEDICARE PART A [id number] SP [id number] SELF PAY MEDICAID [facility] [id number] SP [id number] [place] [id number] SP [id number] MEDICARE PART A [id number] SP [id number] SELF PAY MEDICARE PART A [id number] SP [id number] MEDICAID [facility] [id number] SP [id number] SELF PAY MEDICAID [id number] Keri [id number] MEDICARE PART A [id number] SP [id number] MEDICAID [facility] [id number] SP [id number] SELF PAY MEDICARE [id number] SP [id number] ID IDENTIFICATION [id number] Other Insurance [id number] Medicare Part A of [place] Other 0 [id number] Self 0 MEDICAID S [id number] S [id number] MEDICARE P [id number] S [id number] M Medicare Part [place] Other 0 [id number] Self 0 MEDICARE PART A -O/P [id number] 18 [id number] SELF PAY UNAVAILABLE SP UNAVAILA BLE MEDICAID [facility] 3 [id number] [id number] SP [id number] [place] SELF PAY 2 UNAVAILABLE 1 UNAVAILA [facility] Medicaid - [place] [id number] Medica id [id number] [id number] SP [id number] MEDICARE [id number] SP [id number] M MEDICAID [id number] SP [id number] Medicare [id number] Medicare [id number] Problems, Conditions, and Diagnoses Code Display Name Description Problem Type Effective Dates Data Source(s) R30.0 Dysuria R30.0 - Dysuria Diagnosis 05/12/2020 08:15:00 AM EST [employer] R10.9 Unspecified abdominal pain R10.9 - Unspecified abdomin al pain Diagnosis 05/12/2020 08:15:00 AM EST [employer] R31.9 Hematuria, unspecified R31.9 - Hematuria, unspecified Diagnosis 05/12/2020 08:15:00 AM EST [employer] I49.5 Sick sinus syndrome Sick sinus syndrome Diagnosis 0 11/28/2019 08:40:03 AM EDT [facility] E78.5 Hyperlipidemia, unspecified Hyperlipidemia, unspecifie d Diagnosis 11/28/2019 08:40:03 AM EDT [facility] 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, unspecif ied Rheumatic mitral valve disease, unspecif Diagnosis 11/28/2019 08:40:03 AM EDT [facility] D61.818 [id number] Pancytopenia Problem 12/01/2020 12:00:00 AM EDT eCW1 ([facility]) R93.89 [id number] Ab[address] chest CT Problem 11/19/2020 12:00:00 AM EDT eCW1 ([facility]) R30.0 Dysuria Dysuria (R30.0) 05/06/2020 [id number] 05/06/2020 11:42:41 AM EST 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 ([facility]) N39.0 Urinary tract infection, site not specif ied Urinary tract infection, site not specified (N39.0) 05/06/2020 [id number] 05/06/2020 11:42:41 AM EST ARTPAVITHRA ([facility]) Surgeries/Procedures Procedure Description Date Indications Data Source(s) TDAP VACCINE 7/> YR IM 12/01/2020 12:00:00 AM EDT eCW1 ([facility]) PNEUMOCOCCAL POLYSAC VACCINE 23-V 2 />YR SUBQ/IM 12/01 12:00:00 AM EDT eCW1 ([facility]) uro PVR (Post Voiding Residual) Bladder Scan 12:00:00 AM EDT eCW1 ([facility]) URNLS DIP STICK/TABLET RGNT NON-AUTO W/O MICRSCP 05/06 12:00:00 AM EST CHARTPAVITHRA ([facility]) Results ID Date Data Source [id number] 11/10/2020 12:54:00 PM EDT [facility] Name Value Range Interpretation Code Description Data Marianna rce(s) Supporting Document(s) SARS coronavirus 2 RNA [Presence] in Res piratory specimen by MARK with probe detection NEGATIVE [facility] This lab was ordered by [facility] a nd reported by [facility]. ID Date Data Source "" 05/12/2020 10:37:00 [place] [address] Patient Name: Norris Tillman Exam Date: 05/12/20 : 1940 Ordering Doctor: Minerva King Attending Doctor: Minerva King CC: CT ABDOMEN AND PELVIS WITHOUT AND WITH CONTRAST INDICATION: Hematuria. Abdominal pain. COMPARISON: None. TECHNIQUE: CT of the abdomen and pelvis was performed with and without intravenous contrast, following administration of 100mL of Isovue-370. Sagittal and coronal reformatted images were obtained. One or more of the following dose reduction techniques were utilized in effectively lowering the patient's radiation dose for this examination: Automated Exposure Control, Adjustment of the mA and/or kV according to patient size, or Iterative reconstruction. FINDINGS: ABDOMEN: No renal or ureteral calculi are identified. There is no hydronephrosis. No filling defects are identified within the collecting systems or ureters. Portions of both distal ureters are unopacified, precluding their evaluation. The visualized portions of the lung bases are unremarkable. The liver, gallbladder, pancreas, spleen, and adrenal glands appear unremarkable. There is no evidence of abdominal aortic aneurysm. No significant abdominal or retroperitoneal lymphadenopathy is identified. Noncontrast evaluation of the gastrointestinal tract demonstrates no evidence of bowel obstruction, pneumoperitoneum, or acute inflammatory process. There is no abdominal or pelvic ascites. PELVIS: There is diffuse concentric urinary bladder wall thickening with multiple trabeculations and/or small diverticula present. The largest diverticula noted along the left lateral wall measures up to 1.7 cm. No definite intraluminal filling defect is seen. The prostate gland and seminal vesicles are within normal limits. 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 IMPRESSION: Diffuse concentric urinary bladder wall thickening, which may represent evidence of chronic cystitis. Multiple bladder wall trabeculations and small diverticula measuring up to 1.7 cm on the left lateral wall. Professional interpretation performed at the [facility] Office [facility] . End of diagnostic report: [id number] Signed: Pritesh Nguyen MD 05/12/20 1111 Interpreted by: Charisma Nguyenribed by: Pritesh Nguyen Name Value Range Interpretation Code Description Data Marianna rce(s) Supporting Document(s) ID Date Data Source [id number] 05/08/2020 08:13:06 PM EST [facility] Name Value Range Interpretation Code Description Data Marianna rce(s) Supporting Document(s) SODIUM 139 mmol/L (136-145) [facility] POTASSIUM 3.8 mmol/L (3.6-5.2) [facility] CHLORIDE 103 mmol/L (100-108) [facility] CO2 32 mmol/L (22-31) H [facility] ANION GAP 4 mmol/L (7-16) L [facility] UREA NITROGEN 18 mg/dL (7-24) [facility] CREATININE 0.90 mg/dL (0.80-1.30) [facility] BUN/CREAT RATIO 20.0 RATIO (10.0-20.0) [facility] GLUCOSE 89 mg/dL (70-99) [facility] CALCIUM 8.1 mg/dL (8.4-10.2) L [facility] TOTAL PROTEIN 6.9 g/dL (6.4-8.2) [facility] ALBUMIN 3.4 g/dL (3.2-4.5) [facility] GLOBULIN 3.5 g/dL (2.7-4.3) [facility] ALB/GLOB RATIO 1.0 RATIO [facility] ALKALINE PHOSPHATASE 101 U/L (45-117) [facility] BILIRUBIN,TOTAL 0.4 mg/dL (0.0-1.0) [facility] - C[facility] PLEASE NOTE:Total bilirubin results may be falselyelevated in patients taking Eltrombopag. AST (SGOT) 22 U/L (11-39) [facility] [place] [facility] - C[facility] ALT (SGPT) 17 U/L (12-78) [facility] GFR >60 ml/min/1.73m2 (>59) [facility] GFR ( AMER) >60 ml/min/1.73m2 (>59) [facility] [place] [facility] - CORE GFR INTERPRETATION [facility] [place] [facility] [employer] - CORE --NORMAL KIDNEY FUNCTION OR MILD DISEASE - GFR >OR= 60CHRONIC KIDNEY DISEASE - GFR 15 - 59RENAL FAILURE - GFR <15 Est. GFR calculation based on the MDRDstudy equation, which assumes a steadystate for creatinine. Est. GFR should notbe used for medication dosing. ID Date Data Source [id number] 05/08/2020 12:00:00 AM EST CHARTMAKER ([facility]) Name Value Range Interpretation Code Description Data Marianna rce(s) Supporting Document(s) GFR ( AMER) >60 GFR ( AMER ): >60 05/08/2020 CHARTMAKER ([facility]) ID Date Data Source [id number] 05/08/2020 12:00:00 AM EST CHARTMAKER ([facility]) Name Value Range Interpretation Code Description Data Marianna rce(s) Supporting Document(s) GFR >60 GFR : >60 05/08/2020 CHARTMAKER ([facility]) ID Date Data Source [id number] 05/08/2020 12:00:00 AM EST CHARTMAKER ([facility]) Name Value Range Interpretation Code Description Data Marianna rce(s) Supporting Document(s) ALT (SGPT) 17 U/L ALT (SGPT): 17 U/L CHARTMAKER ([facility]) ID Date Data Source [id number] 05/08/2020 12:00:00 AM EST CHARTMAKER ([facility]) Name Value Range Interpretation Code Description Data Marianna rce(s) Supporting Document(s) AST (SGOT) 22 U/L AST (SGOT): 22 U/L CHARTMAKER ([facility]) ID Date Data Source [id number] 05/08/2020 12:00:00 AM EST CHARTMAKER ([facility]) Name Value Range Interpretation Code Description Data Marianna rce(s) Supporting Document(s) BILIRUBIN,TOTAL 0.4 mg/dL BILIRUBIN,TOTAL: 0. 4 mg/dL 05/08/2020 CHARTMAKER ([facility]) ID Date Data Source [id number] 05/08/2020 12:00:00 AM EST CHARTMAKER ([facility]) Name Value Range Interpretation Code Description Data Marianna rce(s) Supporting Document(s) ALKALINE PHOSPHATASE 101 U/L ALKALINE PHOSPH ATASE: 101 U/L 05/08/2020 CHARTMAKER ([facility]) ID Date Data Source [id number] 05/08/2020 12:00:00 AM EST CHARTMAKER ([facility]) Name Value Range Interpretation Code Description Data Marianna rce(s) Supporting Document(s) ALB/GLOB RATIO 1 RATIO ALB/GLOB RATIO: 1 RA SANDIE 05/08/2020 CHARTMAKER ([facility]) ID Date Data Source [id number] 05/08/2020 12:00:00 AM EST CHARTMAKER ([facility]) Name Value Range Interpretation Code Description Data Marianna rce(s) Supporting Document(s) GLOBULIN 3.5 g/dL GLOBULIN: 3.5 g/dL 021 CHARTMAKER ([facility]) ID Date Data Source [id number] 05/08/2020 12:00:00 AM EST CHARTMAKER ([facility]) Name Value Range Interpretation Code Description Data Marianna rce(s) Supporting Document(s) ALBUMIN 3.4 g/dL ALBUMIN: 3.4 g/dL 05/09/19 21 CHARTNMKER ([facility]) ID Date Data Source [id number] 05/08/2020 12:00:00 AM EST CHARTMAKER ([facility]) Name Value Range Interpretation Code Description Data Marianna rce(s) Supporting Document(s) TOTAL PROTEIN 6.9 g/dL TOTAL PROTEIN: 6.9 g/ dL 05/08/2020 CHARTMAKER ([facility]) ID Date Data Source [id number] 05/08/2020 12:00:00 AM EST CHARTMAKER ([facility]) Name Value Range Interpretation Code Description Data Marianna rce(s) Supporting Document(s) CALCIUM 8.1 mg/dL CALCIUM: 8.1 mg/dL 021 CHARTMAKER ([facility]) ID Date Data Source [id number] 05/08/2020 12:00:00 AM EST CHARTMAKER ([facility]) Name Value Range Interpretation Code Description Data Marianna rce(s) Supporting Document(s) Glucose [Mass/volume] in Serum or Plasma 89 mg/dL Glucose: 89 mg/dL 05/08/2020 CHARTNMKER ([facility]) ID Date Data Source [id number] 05/08/2020 12:00:00 AM EST CHARTMAKER ([facility]) Name Value Range Interpretation Code Description Data Marianna rce(s) Supporting Document(s) BUN/CREAT RATIO 20 RATIO BUN/CREAT RATIO: 20 RATIO 05/08/2020 CHARTMAKER ([facility]) ID Date Data Source [id number] 05/08/2020 12:00:00 AM EST CHARTMAKER ([facility]) Name Value Range Interpretation Code Description Data Marianna rce(s) Supporting Document(s) Creatinine 0.9 mg/dL Creatinine: 0.9 mg/dL 05/08/2020 CHARTMAKER ([facility]) ID Date Data Source [id number] 05/08/2020 12:00:00 AM EST CHARTMAKER ([facility]) Name Value Range Interpretation Code Description Data Marianna rce(s) Supporting Document(s) UREA NITROGEN 18 mg/dL UREA NITROGEN: 18 mg/ dL 05/08/2020 CHARTMAKER ([facility]) ID Date Data Source [id number] 05/08/2020 12:00:00 AM EST CHARTMAKER ([facility]) Name Value Range Interpretation Code Description Data Marianna rce(s) Supporting Document(s) ANION GAP 4 mmol/L ANION GAP: 4 mmol/L 2020 CHARTMAKER ([facility]) ID Date Data Source [id number] 05/08/2020 12:00:00 AM EST CHARTMAKER ([facility]) Name Value Range Interpretation Code Description Data Marianna rce(s) Supporting Document(s) CO2 32 mmol/L CO2: 32 mmol/L 05/08/2020 CHART MAKER ([facility]) ID Date Data Source [id number] 05/08/2020 12:00:00 AM EST CHARTMAKER ([facility]) Name Value Range Interpretation Code Description Data Marianna rce(s) Supporting Document(s) CHLORIDE 103 mmol/L CHLORIDE: 103 mmol/L 05/08 CHARTMAKER ([facility]) ID Date Data Source [id number] 05/08/2020 12:00:00 AM EST CHARTMAKER ([facility]) Name Value Range Interpretation Code Description Data Marianna rce(s) Supporting Document(s) Potassium 3.8 mmol/L Potassium: 3.8 mmol/L 05/08/2020 CHARTMAKER ([facility]) ID Date Data Source [id number] 05/08/2020 12:00:00 AM EST CHARTMAKER ([facility]) Name Value Range Interpretation Code Description Data Marianna rce(s) Supporting Document(s) SODIUM 139 mmol/L SODIUM: 139 mmol/L 021 CHARTMAKER ([facility]) ID Date Data Source [id number] 05/06/2020 12:00:00 AM EST CHARTMAKER ([facility]) Name Value Range Interpretation Code Description Data Marianna rce(s) Supporting Document(s) Glucose [Mass/volume] in Serum or Plasma Negative Glucose: Negative 05/06/2020 CHARTMAKER ([facility]) ID Date Data Source [id number] 05/06/2020 12:00:00 AM EST CHARTMAKER ([facility]) Name Value Range Interpretation Code Description Data Marianna rce(s) Supporting Document(s) Bilirubin.total [Mass/volume] in Serum or Plasma Negative Bilirubin: Negative 05/06/2020 CHARTMAKER ([facility]) ID Date Data Source [id number] 05/06/2020 12:00:00 AM EST CHARTMAKER ([facility]) Name Value Range Interpretation Code Description Data Marianna rce(s) Supporting Document(s) Ketone Trace Ketone: Trace 05/06/2020 CHARTJarad COLLEEN ([facility]) ID Date Data Source [id number] 05/06/2020 12:00:00 AM EST CHARTMAKER ([facility]) Name Value Range Interpretation Code Description Data Marianna rce(s) Supporting Document(s) Specific gravity of Urine 1.030 Specific G ravity: 1.030 05/06/2020 CHARTMAKER ([facility]) ID Date Data Source [id number] 05/06/2020 12:00:00 AM EST CHARTMAKER ([facility]) Name Value Range Interpretation Code Description Data Marianna rce(s) Supporting Document(s) Hemoglobin [Presence] in Urine Hemol +++ Blood (Urine): Hemol +++ 05/06/2020 CHARTMAKER ([facility]) ID Date Data Source [id number] 05/06/2020 12:00:00 AM EST CHARTMAKER ([facility]) Name Value Range Interpretation Code Description Data Marianna rce(s) Supporting Document(s) pH of Blood 5.0 pH: 5.0 05/06/2020 CHARTMAKER ([facility]) ID Date Data Source [id number] 05/06/2020 12:00:00 AM EST CHARTMAKER ([facility]) Name Value Range Interpretation Code Description Data Marianna rce(s) Supporting Document(s) Protein [Mass/volume] in Serum or Plasma +1 Protein: +1 05/06/2020 CHARTMAKER ([facility]) ID Date Data Source [id number] 05/06/2020 12:00:00 AM EST CHARTMAKER ([facility]) Name Value Range Interpretation Code Description Data Marianna rce(s) Supporting Document(s) Urobilinogen [Mass/volume] in Urine Negative Urobilinogen: Negative 05/06/2020 CHARTMAKER ([facility]) ID Date Data Source [id number] 05/06/2020 12:00:00 AM EST CHARTMAKER ([facility]) Name Value Range Interpretation Code Description Data Marianna rce(s) Supporting Document(s) Nitrite [Presence] in Urine Negative Nitrite: Negative 05/06/2020 CHARTMAKER ([facility]) ID Date Data Source [id number] 05/06/2020 12:00:00 AM EST CHARTMAKER ([facility]) Name Value Range Interpretation Code Description Data Marianna rce(s) Supporting Document(s) Leukocytes [#/volume] in Blood Negative Leuko cytes: Negative 05/06/2020 CHARTMAKER ([facility]) Procedure Social History Code Duration Value Status Description Data Source(s ) Smoking 12/31/2020 12:00:00 AM EDT Former Smoker completed Former Smoker eCW1 ([facility]) Smoking 12/01/2020 12:00:00 AM EDT Former Smoker completed Former Smoker eCW1 ([facility]) Smoking 12/01/2020 12:00:00 AM EDT Former Smoker completed Former Smoker eCW1 ([facility]) Smoking 12/01/2020 12:00:00 AM EDT Former Smoker completed Former Smoker eCW1 ([facility]) Smoking 11/19/2020 12:00:00 AM EDT Former Smoker completed Former Smoker eCW1 ([facility]) Smoking 06/18/2020 12:00:00 AM EDT Former Smoker completed Former Smoker eCW1 ([facility]) Smoking 05/06/2020 12:00:00 AM EST Never smoker completed Never s moker CHARTMAKER ([facility]) Smoking 12/05/2019 12:00:00 AM EDT Former Smoker completed Former Smoker eCW1 ([facility]) Smoking 12/05/2019 12:00:00 AM EDT Former Smoker completed Former Smoker eCW1 ([facility]) Vital Signs ID Date Data Source [id number] Name Value Range Interpretation Code Description Data Source(s) Body weight 123 [lb_av] 123 [lb_av] eCW1 ([facility]) Body weight 55.79 kg 55.79 kg eCW1 ([facility]) Body height [in_i] eCW1 ([facility]) Body mass index (BMI) [Ratio] 16.23 kg/m2 16.23 kg/m2 eCW1 ([facility]) Heart rate 78 /min 78 /min eCW1 ([facility]) Respiratory rate 18 /min 18 /min eCW1 ([facility]) Body temperature 98 [degF] 98 [degF] eCW1 ([facility]) Systolic blood pressure 104 mm[Hg] 104 mm[Hg] e CW1 ([facility]) Diastolic blood pressure 62 mm[Hg] 62 mm[Hg] eCW1 ([facility]) Body weight 129 [lb_av] 129 [lb_av] eCW1 ([facility]) Body temperature 97.8 [degF] 97.8 [degF] eCW1 ( [facility]) Systolic blood pressure 104 mm[Hg] 104 mm[Hg] e CW1 ([facility]) Diastolic blood pressure 62 mm[Hg] 62 mm[Hg] eCW1 ([facility]) Body weight 58.51 kg 58.51 kg eCW1 ([facility]) Body height [in_i] eCW1 ([facility]) Body mass index (BMI) [Ratio] 17.02 kg/m2 17.02 kg/m2 eCW1 ([facility]) Heart rate 70 /min 70 /min eCW1 ([facility]) Respiratory rate 18 /min 18 /min eCW1 ([facility]) Body weight 128 [lb_av] 128 [lb_av] eCW1 ([facility]) Body weight 58.06 kg 58.06 kg eCW1 ([facility]) Body height [in_i] eCW1 ([facility]) Body mass index (BMI) [Ratio] 16.89 kg/m2 16.89 kg/m2 W1 ([facility]) Heart rate 76 /min 76 /min eCW1 ([facility]) Respiratory rate 18 /min 18 /min eCW1 ([facility]) Body temperature 98.0 [degF] 98.0 [degF] eCW1 ( [facility]) Systolic blood pressure 118 mm[Hg] 118 mm[Hg] e CW1 ([facility]) Diastolic blood pressure 62 mm[Hg] 62 mm[Hg] eCW1 ([facility]) Body weight 128 [lb_av] 128 [lb_av] eCW1 ([facility]) Body height [in_i] eCW1 ([facility]) Body mass index (BMI) [Ratio] 16.89 kg/m2 16.89 kg/m2 eCW1 ([facility]) Heart rate 96 /min 96 /min eCW1 ([facility]) Respiratory rate 18 /min 18 /min eCW1 ([facility]) Body temperature 98.4 [degF] 98.4 [degF] eCW1 ( [facility]) Systolic blood pressure 112 mm[Hg] 112 mm[Hg] e CW1 ([facility]) Diastolic blood pressure 60 mm[Hg] 60 mm[Hg] eCW1 ([facility]) Body weight 132 [lb_av] 132 [lb_av] eCW1 ([facility]) Body height [in_i] eCW1 ([facility]) Body mass index (BMI) [Ratio] 17.41 kg/m2 17.41 kg/m2 eCW1 ([facility]) Heart rate 83 /min 83 /min eCW1 ([facility]) Respiratory rate 18 /min 18 /min eCW1 ([facility]) Body temperature 97.9 [degF] 97.9 [degF] eCW1 ( [facility]) Systolic blood pressure 100 mm[Hg] 100 mm[Hg] e CW1 ([facility]) Diastolic blood pressure 62 mm[Hg] 62 mm[Hg] eCW1 ([facility]) Body temperature 97.7 [degF] 97.7 [degF] ISREAL MACIAS ([facility]) Heart rate 60 /min 60 /min CHARTMAKER ([facility]) Systolic blood pressure 120 mm[Hg] 120 mm[Hg] C HARTMAKER ([facility]) Diastolic blood pressure 80 mm[Hg] 80 mm[Hg] CHARTMAKER ([facility]) Body weight 130 [lb_av] 130 [lb_av] CHARTMAKER ([facility]) Oxygen saturation in Arterial blood by Pulse oximetry 95 % 95 % CHARTMAKER ([facility]) Inhaled oxygen concentration 21 % 21 % CHARTMAKER ([facility]) Body weight 130.2 [lb_av] 130.2 [lb_av] eCW1 ([facility]) Body temperature 97.2 [degF] 97.2 [degF] eCW1 ( [facility]) Respiratory rate 18 /min 18 /min eCW1 ([facility]) Diastolic blood pressure 66 mm[Hg] 66 mm[Hg] eCW1 ([facility]) Systolic blood pressure 110 mm[Hg] 110 mm[Hg] e CW1 ([facility]) Body height [in_i] eCW1 ([facility]) Body mass index (BMI) [Ratio] 17.18 kg/m2 17.18 kg/m2 eCW1 ([facility]) Heart rate 111 /min 111 /min eCW1 ([facility]) Patient Treatment Plan of Care Planned Activity Planned Date Details Description Data Source (s) Nystatin 100 UNT/MG Topical Powder 12/01/2020 12:00:00 AM EDT eCW1 ([facility]) Nystatin 100 UNT/MG Topical Powder 12/01/2020 12:00:00 AM EDT eCW1 ([facility]) Nystatin 100 UNT/MG Topical Powder 12/01/2020 12:00:00 AM EDT eCW1 ([facility])
--- OUTSIDE RECORDS SUMMARY | 2021-01-11 01:02 | CCD ---
Author Author [facility] Organization [facility] Address Unknown Phone Unavailable Care Team Providers Care Tension Machine Operator Name Role Phone Patti Grant Unavailable PROBLEMS Type Condition ICD9-CM Code [id number] Code Onset Dates Condition S tatus W/U Status Risk SNOMED Code Notes Problem Age-related nuclear cataract, right eye H25.11 Active confirmed 967235078565094 Problem Abnormal chest CT R93.89 Active confirmed 16 [id number] Problem Aplastic anemia D61.9 Active confirmed 3060 53585 Problem Mixed hyperlipidemia E78.2 Active confirmed 964575002 ALLERGIES No Known Allergies ENCOUNTERS from 1940 to 2020-11-19 Encounter Location Date Provider Diagnosis [facility] [address] [address] [place] [id number] Nov, 2020 Patti Grant IMMUNIZATIONS Vaccine Route Administration Date Status Prevnar Pharmacy Given Unknown July 09, 2015 Administe red Influenza Pharmacy Given Unknown Dec 02, 2019 Adminis tered Pneumococcal Adult 0.5mL Pneumovax 23 Unknown Dec [...] Education Language: Question Answer Notes Languages spoken: Frisian Domestic Violence: Question Answer Notes Status: Single Sexual Hx: Question Answer Notes Had sex in the last 12 months (vaginal, oral, or anal)? No Have you ever had an STD? No Drug and Alcohol Question Answer Notes Total Score: 0 Interpretation: No problems reported Tobacco Use: Question Answer Notes Are you a: former smoker former smoker REASON FOR REFERRAL No Information VITAL SIGNS No information MEDICATIONS Medication SIG (Take, Route, Frequency, Duration) Notes Start Da te End Date Status Furosemide 20 MG 1 tablet Oral daily as needed Active Welchol 625 MG 1 tab Orally Once a day for 90 day(s) Active Potassium Chloride ER 10 MEQ 1 capsule with food Oral daily when he takes Lasix hosp d/c 11/13/20 = twice weekly Active Thera M Plus - 1 tab Orally Daily Nov, Active Tamsulosin HCl 0.4 MG 2 capsules Orally Daily Nov, Active Triamcinolone Acetonide 0.1 % 1 application External d aily as needed to his left foot Unknown PROCEDURES No Information RESULTS No Results REASON FOR VISIT [facility] D/C 11/13-Neutropenia MEDICAL (GENERAL) HISTORY Type Description Date Medical History aplastic anemia - mgmt Walker/ needs [facility] referral Medical History hyperlipidemia Medical History MR Medical History 03/2010 Colonoscopy, Mike NBIH other alcantar normal Medical History 03/2010 EGD Mike irreg Z line, HH [facility]. Surgical History Cataracy surgery Bilateral 2019 Hospitalization History [facility] - neutropenia 11/09/20- Goals Section No Information Health Concerns No Information MEDICAL EQUIPMENT No Information MENTAL STATUS No Information FUNCTIONAL STATUS No Information ASSESSMENTS No Information PLAN OF TREATMENT Next Appt Details Provider Name:Patti Grant, 2021-02-05 10:30:00 AM, [address], , [place], [address], Insurance Providers Payer Name Payer Address Payer Phone Insured Name Patient Relati onship to Insured Coverage Start Date Coverage End Date MEDICAID In[employer] [address] [facility] [address] NEEL ASIF self MEDICARE Part A and B [address] [facility] [id number] [phone] NEEL ASIF self
[2021-01-11] MEDS ORDERED: NS 500 ML IV ONE ×2 (02:35→20:30)
[2021-01-11 03:23] LABS: HEMATOCRIT 28.8 % (42.0-52.0); HEMOGLOBIN 9.2 g/dl (13.5-17.5); MEAN CORPUSCULAR HEMOGLOBIN 35.7 pg (27.0-33.0); MEAN CORPUSCULAR HGB CONC 31.9 g/dl (32.0-36.5); MEAN CORPUSCULAR VOLUME 111.6 fl (80.0-96.0); RED BLOOD COUNT 2.58 10^6/uL (4.30-6.10); WHITE BLOOD COUNT 1.1 10^3/uL (4.0-10.0)
[2021-01-11 03:25] LABS: PLATELET COUNT, AUTOMATED 84 10^3/uL (150-450)
--- NOTE | 2021-01-11 03:38 | REPVR ---
PROCEDURE INFORMATION: Exam: XR Chest Exam date and time: 01/11/2021 2:58 AM Age: 80 years old Clinical indication: Pain; AMS; Additional info: Altered mental status TECHNIQUE: Imaging protocol: XR of the chest. Views: 1 view. COMPARISON: CT Chest with contrast 12/21/2020 11:57 AM FINDINGS: Limitations: Multiple overlying electrocardiograph leads. Lungs: Diffuse hazy infiltrates bilaterally. Pleural spaces: Unremarkable. No pleural effusion. No pneumothorax. Heart/Mediastinum: Unremarkable. No cardiomegaly. Vasculature: Uncoiled thoracic aorta. Bones/joints: Unremarkable. IMPRESSION: Diffuse hazy infiltrates bilaterally. Suspicious for pneumonia. Electronically signed by: Joy Petit On 01/11/2021 03:37:40 AM
--- NOTE | 2021-01-11 03:40 | REPVR ---
PROCEDURE INFORMATION: Exam: CT Head Without Contrast Exam date and time: 01/11/2021 3:15 AM Age: 80 years old Clinical indication: Altered mental status/memory loss TECHNIQUE: Imaging protocol: Computed tomography of the head without contrast. Radiation optimization: All CT scans at this facility use at least one of these dose optimization techniques: automated exposure control; mA and/or kV adjustment per patient size (includes targeted exams where dose is matched to clinical indication); or iterative reconstruction. COMPARISON: No relevant prior studies available. FINDINGS: Brain: Diffuse cerebral atrophy. No abnormal white matter changes. No acute intracranial hemorrhage. Cortical rasheed-white matter differentiation is preserved. No acute mass effect. Cerebral ventricles: Ventricles are in proportion to the degree of atrophy. Paranasal sinuses: Mild mucosal thickening in the paranasal sinuses. Mastoid air cells: Visualized mastoid air cells are well aerated. Vasculature: Atherosclerotic calcification of the carotid siphon. Bones/joints: Unremarkable. No acute fracture. Soft tissues: Unremarkable. IMPRESSION: No acute cerebral findings. Electronically signed by: Joy Petit On 01/11/2021 03:39:59 AM
[2021-01-11 03:46] LABS: ACETAMINOPHEN LEVEL < 2.0 UG/ML (10.0-30.0); ALBUMIN 1.9 GM/DL (3.2-5.2); ALT/SGPT 17 U/L (12-78); BILIRUBIN,DIRECT 0.4 MG/DL (0.0-0.2); BLOOD UREA NITROGEN 47 MG/DL (7-18); CALCIUM LEVEL 7.8 MG/DL (8.8-10.2); CARBON DIOXIDE LEVEL 25 MEQ/L (21-32); CHLORIDE LEVEL 104 MEQ/L (98-107); CK-MB VALUE MASS 1.7 NG/ML (<3.6); CPK CREATINE PHOSPHOKINASE 235 U/L (39-308); CREATININE FOR GFR 0.82 MG/DL (0.70-1.30); ETHYL ALCOHOL (ETHANOL) < 0.003 % (0.000-0.010); GLOMERULAR FILTRATION RATE > 60.0 (>35); GLUCOSE, FASTING 96 MG/DL (70-100); MB/CK RELATIVE INDEX 0.72 (< OR =4); POTASSIUM SERUM 3.8 MEQ/L (3.5-5.1); SALICYLATE LEVEL < 1.7 MG/DL (5.0-30.0); SODIUM LEVEL 141 MEQ/L (136-145); THYROID STIMULATING HORMONE 0.288 uIU/ML (0.358-3.740); TOTAL PROTEIN 6.2 GM/DL (6.4-8.2); TROPONIN I < 0.02 NG/ML (< 0.10)
[2021-01-11 03:49] LABS: ABG BASE EXCESS -1.9 (-2.0-2.0); ABG HCO3 21.1 MEQ/L (22.0-26.0); ABG PARTIAL PRESSURE CO2 29.8 mmHg (35.0-45.0); ABG PARTIAL PRESSURE O2 96.3 mmHg (75.0-100.0); ABG STANDARD HCO3 22.9 MEQ/L (22.0-26.0); ABG pH (ARTERIAL) 7.468 UNITS (7.350-7.450)
[2021-01-11 03:49] LABS: ANISOCYTOSIS 1+; EOSINOPHILS 2 % (0-3); LYMPHOCYTES 8 % (16-44); NEUTROPHILS 70 % (28-66); PLATELET ESTIMATE DECREASED (NORMAL); POIKILOCYTOSIS 1+
[2021-01-11 03:50] LABS: OVALOCYTES 1+
[2021-01-11 04:10] LABS: OSMOLALITY SERUM 298 MOSM/KG (280-301); RSV AMPLIFICATION NEGATIVE (NEGATIVE)
--- NOTE | 2021-01-11 05:03 | HPEPDOC ---
[facility] Medical History & Physical Date of Admission Jan 11, 2021 Date of Service: Jan 11, 2021 History and Physical CHIEF COMPLAINT: Confusion HISTORY OF PRESENT ILLNESS: 80-year-old male according to chart review has a history of aplastic anemia and cognitive disability and hyperlipidemia brought in by EMS after daughter in [place] had called [facility] to come check on him and his at home because she had not heard from them in a while straight eric according to story from the ED found both of them at home confused and alone and brought to the emergency department. I am unable to obtain any information from the patient whether it is due to his cognitive disability or acute encephalopathy or combination of both he is unable to give me any answers. According to chart review he had a recent admission in November of this year during which she was at least able to answer some basic review of systems questions which he is currently unable to do. He just stares off and sometimes tracks me around the r oom when asked questions he mumbles non-words. In the emergency department patient was found to be positive for Covid his also tested positive. It's unknown when he first got the infection. He saturating around 95% on room air and other than the confusion he actually appears fairly comfortable. EKG showed sinus rhythm. He received 1 bolus of fluids. Labs reveal a slightly elevated lactate of 2.2. His WBC is 1.1 which isn't too far from his baseline due to the aplastic anemia. Patient will be admitted to the medical service for further medical workup. PAST MEDICAL/SURGICAL HISTORY: According to his admission November of this year H&P shows patient has a history of aplastic anemia for which she follows with rn perinatal Dr Chi. He also has a history of cognitive disability and hyperlipidemia. chart review also shows he has a surgical history of colonoscopy with hemorrhoids. SOCIAL HISTORY: I am unable to obtain this from the patient but according to chart review on his last admission it's noted that he was a former smoker who does not drink alcohol or use drugs FAMILY HISTORY: is positive for Covid 19 as well. I am unable to obtain any further family history from the patient due to his mentation. ALLERGIES: Please see below. REVIEW OF SYSTEMS: I'm unable to obtain a review of systems from the patient due to his mental state. HOME MEDICATIONS: Please see below. PHYSICAL EXAMINATION: Constitutional: Awake and alert, in no apparent distress ENT: Mucosa is dry Respiratory: Lungs diminished breath sounds bilaterally. No respiratory distress. No use of accessory muscles. Saturating at 93% on room air Cardiovascular: Rate is regular and is 97 on monitor. Rhythm is regular. Gastrointestinal: Abdomen is soft, non distended, non tender, BS present. Musculoskeletal: No lower extremity edema. Neurologic: Unable to assess does not follow commands. Mental Status: confused tracks me around the room mumbles nonwords when asked questions LABORATORY DATA: See below. IMAGING: See chart MICROBIOLOGY: Please see below. ASSESSMENT/PLAN 80M hx of aplastic anemia, found at home by real estate closer at home alone with his both confused, both with COVID19+ brought in for further evaluation. Admitted with persumed COVID19 encephalopathy. # Acute encephalopathy: in a patient who has baseline cognitive disability according to his chart. Unknown baseline. Could be 2/2 COVID19 encephalopathy vs superimposed bacterial pneumonia ontop of COVID19 or a combination of both. Will treat possible underlying PNA with antibiotics for now and start on IVFs and closely monitor for clinical progression. # Covid 19 infection: Saturating well on room air. Lung sounds diminished on exam. Chest x-ray suggestive of possible pneumonia. Lactate slightly elevated 2.2. White count is low but he does have aplastic anemia and will be considered to immunocompromised and started on IV antibiotics until pro-calcitonin and cultures are back. IVFs. Not requiring oxygen will hold off on IV Decadron for now. Ordered inflammatory markers. Trend inflammatory markers. Lovenox. O2 target 90% or better. Could discuss with ID if appropriate for monoclonals, we don't know the day of onset of symptoms/confusion. # Lactic acidosis: 2.2 on admission. Mild, could be from dehydration - he was dry on exam or infection. IVFs. # Aplastic anemia: WBC 1.1, follows with Dr chi. I will ask the morning team to discuss with Dr Chi in the morning if he should receive Neupogen, which he had recommended and the patient received on his last admission in November when he had pneumonia. # Physical deconditioning: chronic. PT/OT when appropriate. # HLD: continue statin. # DVT prophylaxis: Lovenox A Yousef Hospitalist Vital Signs Vital Signs Date Time Temp Pulse Resp B/P (MAP) Pulse Ox O2 Delivery O2 Flow Rate FiO2 11/8/21 04:00 100/59 (73) 01/11/21 03:58 98 16 96 Room Air 01/11/21 02:39 99.8 Laboratory Data Labs 24H Laboratory Tests 2 01/11/21 02:48: Neutrophils (%) (Auto) , Neutrophils # (Auto) , Nucleated Red Blood Cells % (auto) 0.0, Neutrophils 70H, Band Neutrophils 20H, Lymphocytes (Manual) 8L, Eosinophils (Manual) 2, Poikilocytosis 1+, Anisocytosis 1+, Macrocytosis 2+, Ovalocytes 1+, Platelet Estimate DECREASED, Immature Platelet Fraction 4.0, Carboxyhemoglobin 2.5H, Anion Gap 12, Glomerular Filtration Rate > 60.0, Osmolality 298, Lactic Acid Level 2.2*H, Calcium Level 7.8L, Total Bilirubin 1.0, Direct Bilirubin 0.4H, Aspartate Amino Transf (AST/SGOT) 36, Alanine Aminotransferase (ALT/SGPT) 17, Alkaline Phosphatase 72, Ammonia 37H, Total Creatine Kinase 235, Creatine Kinase MB 1.7, Creatine Kinase MB Relative Index 0.72, Troponin I < 0.02, Total Protein 6.2L, Albumin 1.9L, Albumin/Globulin Ratio 0.4, Thyroid Stimulating Hormone (TSH) 0.288L, Salicylates Level < 1.7L, Acetaminophen Level < 2.0L, Ethyl Alcohol Level < 0.003, Coronavirus (COVID- 19)(PCR) POSITIVEA, Influenza Type A (RT-PCR) NEGATIVE, Influenza Type B (RT-PCR ) NEGATIVE, Respiratory Syncytial Virus (PCR) NEGATIVE 01/11/21 03:03: Bedside Glucose (Misc Panel) 96 01/11/21 03:21: Blood Gas Bicarbonate Standard 22.9, Arterial Blood pH 7.468H, Arterial Blood Partial Pressure CO2 29.8L, Arterial Blood Partial Pressure O2 96.3, Arterial Blood Total CO2 22.0L, Arterial Blood HCO3 21.1L, Arterial Blood Base Excess - 1.9, Arterial Blood Oxygen Saturation 97.0 CBC/BMP Laboratory Tests 01/11/21 02:48 Home Medications Scheduled Colesevelam Hydrochloride (Welchol) 625 Mg Tablet, 625 MG PO DAILY Furosemide (Furosemide) 20 Mg Tablet, 20 MG PO DAILY Multivitamins (Thera M Plus Tablet) 1 Each Tablet, 1 TAB PO DAILY Potassium Chloride (Potassium Chloride) 10 Meq Capsule.er, 10 MG PO DAILY Tamsulosin Hcl (Tamsulosin HCl) 0.4 Mg Capsule, 0.8 MG PO DAILY Miscellaneous Medications [Med Rec Comment] PT ALTERED USED EXTERNAL MED HISTORY AND LAST DISCHARGE IN 2020 Allergies Coded Allergies: No Known Allergies (Unverified , 04/01/19) ROSE RIVERA MD Jan 11, 2021 05:03
[2021-01-11] MEDS ORDERED: TAMS1CAP17 PO (05:05)
[2021-01-11] MEDS ORDERED: MED REC COMMENT (05:06)
[2021-01-11] MEDS ORDERED: HOME MED LIST COMPLETE! XX SCH (05:10)
[2021-01-11] MEDS: NS 1,000 ML IV SCH ×2 (05:20→15:06)
[2021-01-11] MEDS: cefTRIAXone SOD 1 GM in D5W MINI-BAG PLUS 50 ML IV SCH (05:53)
--- NOTE | 2021-01-11 07:20 | ECGEPIP ---
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
[2021-01-11 07:33] LABS: FIBRINOGEN 867 MG/DL (268-480); INR 1.16; PARTIAL THROMBOPLASTIN TIME 33.7 SECONDS (25.9-37.0); PROTHROMBIN TIME 15.2 SECONDS (12.7-14.5)
[2021-01-11 08:05] LABS: C REACTIVE PROTEIN QUANTITATIV 22.4 MG/DL (0.00-0.30)
[2021-01-11 08:32] LABS: D-DIMER QUANT > 4000 ng/ml (<500)
[2021-01-11] MEDS: POTASSIUM CHLORIDE 10MEQ SR TABLET PO SCH (08:41)
[2021-01-11] MEDS: TAMSULOSIN 0.4 MG CAP PO SCH (08:41)
[2021-01-11] MEDS: ENOXAPARIN 40MG/0.4ML SYRINGE (J1650 PER 10MG) SC SCH (08:42)
[2021-01-11] MEDS: DOXYCYCLINE HYCLATE 100 MG in D5W MINI-BAG PLUS 100 ML IV SCH (08:42)
[2021-01-11 10:40] LABS: FOLATE 18.7 NG/ML (>5.4)
[2021-01-11 11:12] VITALS: BP 90/55
[2021-01-11 12:00] VITALS: O2SAT 100
[2021-01-11 15:06] VITALS: BP 116/53
--- NOTE | 2021-01-11 17:13 | IPNPDOC ---
Text Note Date of Service The patient was seen on 01/11/21. NOTE Subjective: Patient examined at bedside in the emergency department. He is alert to self but not to date of , location, or year. Mr. Tillman has an intellectual disability at baseline and is take care of by his sister (Marilia) who is also currently being hospitalized for confusion. It is difficult to assess if the patient is truly confused or at his baseline. He was hospitalized in November for pneumonia at which time it was noted he could answer basic review of systems questions. Today Mr. Tillman acknowledges that I am in the room and mumbles a few words that I cannot understand. He is able to swallow his morning medications and eat his breakfast heartily. I spoke to the patient's niece,Arcelia Gates, who lives in [place] this evening. She states that she checks on her mother and uncle twice a week by phone. Her mother Marilia is her uncle's substation operator caregiver. She began to worry when her mother did not return her calls for two days after having felt ill this week. Arcelia decided to call the police for a wellness check last night as she was worried that her mother and uncle were unwell. Objective: Vitals: See below General: an elderly male sitting in bed eating his breakfast. He does not appear to be in any acute distress. He makes good eye contact and mumbles a few inaudible words. HEENT: PERRLA, mucous membranes appear dry, no lymphadenopathy, neck is supple, poor dentition Cardiovascular: tachycardic, regular rhythm with occasional premature atrial contractions, heart sounds are distant, no murmurs noted. Pulmonary: lung sounds are distant, equal air intake bilaterally, crackles heard in lung bases Abdomen: scaphoid, positive bowel sounds, nontender to palpation in all four quadrants, soft Extremities: 2+ pulses throughout, no edema noted on bilateral lower extremities. capillary refill <2 seconds Skin: skin appear diffusely dry with the more severe areas noted on the extremities. Psych: patient is alert to self Assessment: Mr. Tillman is an 80 year old male with past medical history of pancytopenia secondary to aplastic anemia, cognitive disability, and hyperlipidemia who presented to the emergency department after both he and his sister were found confused at their home during a wellness check. He was admitted to the hospital for treatment and further workup for presumed COVID encephalopathy. Metabolic encephalopathy: secondary to carbon monoxide poisoning vs COVID vs dehydration/poor oral intake -superimposed on his baseline cognitive disability -patient is a poor historian and is only alert to self -patient is COVID positive -lactic acid 2.2 repeat 1.3 -head CT negative for acute intracranial abnormalities -blood cultures pending -fall risk precaution Carbon monoxide poisoning -elevated carboxyhemoglobin -nursing order for patient to be placed on non rebreather 100% O2. -patient's sister denies having a wood burning stove in the home. Unclear whether or not patient was exposed to CO in home or vehicle. -pH 7.5, pO2 96, pC02 29 COVID-19 -patient's niece states that Norris likely caught COVID from his nephew Rut who "hangs out with many people". -patient does not qualify for monoclonal antibodies -patient has oxygen saturation of 94% on room air -D-Dimer >4000, Ferritin 2412, CRP 22 Suspected COVID pneumonia -Chest x-ray shows diffuse hazy infiltrate bilaterally suspicious for pneumonia -continue ceftriaxone and doxycycline -oxygen saturation 92% on room air -procalcitonin 0.28 Poor oral intake -likely for last week as his sister who takes care of him has been confused and unable to care for him -BUN elevated -patient given 500ml bolus NS in ED -started on maintenance fluids 100ml NS x 2 bags -2 gram sodium diet Aplastic anemia -diagnosed in 2015, patient follows with Dr. Chi -15% bone marrow cellularity -receives recombinant erythropoietin injection every two weeks if his hemoglobin is <10. Patient missed his dose last Monday. Pancytopenia -secondary to aplastic anemia -WBC 1.1 -platelet count 84 -hgb 9.2 -RBC 2.58 Macrocytosis: -MCV 111 -B12 elevated -folate wnl DVT prophylaxis -continue lovenox 40mg Disposition: Continue to monitor patient's respiratory status. Continue with antibiotics and monitor patient oral intake. VS,Fishbone, I+O VS, Fishbone, I+O Laboratory Tests 01/11/21 02:48 Vital Signs Date Time Temp Pulse Resp B/P (MAP) Pulse Ox O2 Delivery O2 Flow Rate FiO2 01/11/21 15:06 98.0 53 18 116/53 (74) 94 Room Air 01/11/21 12:19 13.0 I&O- Last 24 Hours up to 6 AM 01/11/21 06:00 Intake Total 500 ml Balance 500 ml GME ATTESTATION GME ATTESTATION My faculty preceptor for this patient encounter was physically present during the encounter and was fully available. All aspects of the patient interview, examination, medical decision making process, and medical care plan development were reviewed and approved by the faculty preceptor. The faculty preceptor is aware and concurs with the plan as stated in the body of this note and will attest to such by his/her cosignature. ATTENDING NOTE I, Celestine Mata MD, have independently examined this patient and performed my own physical exam with the medical students and residents in the room with me, as well as reviewed the documentation and edited where necessary. I have discussed in detail with the resident and student the findings and plan of tr eatment as documented and edited their note. I agree with their findings and treatment plan and have edited their documentation. JOSSY ROMO DO Jan 11, 2021 17:13 CELESTINE MATA MD Jan 15, 2021 15:01
[2021-01-11 18:30] LABS: ABG BASE EXCESS -0.3 (-2.0-2.0); ABG HCO3 21.6 MEQ/L (22.0-26.0); ABG O2 SATURATION 89.2 % (95.0-99.0); ABG PARTIAL PRESSURE CO2 26.9 mmHg (35.0-45.0); ABG PARTIAL PRESSURE O2 56.7 mmHg (75.0-100.0); ABG STANDARD HCO3 24.1 MEQ/L (22.0-26.0); ABG TOTAL CO2 22.4 MEQ/L (23.0-31.0); ABG pH (ARTERIAL) 7.522 UNITS (7.350-7.450)
[2021-01-11 20:00] VITALS: BP 96/50; O2SAT 87
[2021-01-12] VITALS (7 sets, daily range): BP systolic 101–109; BP diastolic 51–56; O2SAT 94–97
[2021-01-12] MEDS ORDERED: IPRATROPIUM 0.5MG/ALBUTEROL 2.5MG INH SOL UD 3ML (DUONEB) NEB PRN (00:35)
[2021-01-12] MEDS: DOXYCYCLINE HYCLATE 100 MG in D5W MINI-BAG PLUS 100 ML IV SCH ×3 (00:46→20:35)
[2021-01-12] MEDS: cefTRIAXone SOD 1 GM in D5W MINI-BAG PLUS 50 ML IV SCH (06:14)
[2021-01-12 06:24] LABS: EOS % 2.3 % (0.0-3.0); HEMATOCRIT 24.4 % (42.0-52.0); HEMOGLOBIN 7.7 g/dl (13.5-17.5); LYMPH # 0.2 10^3/uL (1.5-5.0); LYMPH % 18.2 % (24.0-44.0); MEAN CORPUSCULAR HEMOGLOBIN 35.6 pg (27.0-33.0); MEAN CORPUSCULAR HGB CONC 31.6 g/dl (32.0-36.5); MONO % 3.4 % (2.0-8.0); NEUTROPHILS % 71.6 % (36.0-66.0); RED BLOOD COUNT 2.16 10^6/uL (4.30-6.10)
[2021-01-12 06:37] LABS: NEUTROPHILS # 0.6 10^3/uL (1.5-8.5); PLATELET COUNT, AUTOMATED 70 10^3/uL (150-450); WHITE BLOOD COUNT 0.9 10^3/uL (4.0-10.0)
[2021-01-12 06:41] LABS: BLOOD UREA NITROGEN 29 MG/DL (7-18); CALCIUM LEVEL 7.9 MG/DL (8.8-10.2); CARBON DIOXIDE LEVEL 26 MEQ/L (21-32); CHLORIDE LEVEL 108 MEQ/L (98-107); CREATININE FOR GFR 0.78 MG/DL (0.70-1.30); GLOMERULAR FILTRATION RATE > 60.0 (>35); GLUCOSE, FASTING 118 MG/DL (70-100); MAGNESIUM LEVEL 2.6 MG/DL (1.8-2.4); NT-PRO BNP 287 PG/ML (<450); POTASSIUM SERUM 3.5 MEQ/L (3.5-5.1); SODIUM LEVEL 141 MEQ/L (136-145)
[2021-01-12] MEDS: ENOXAPARIN 40MG/0.4ML SYRINGE (J1650 PER 10MG) SC SCH (09:00)
[2021-01-12] MEDS: guaiFENesin ER 600 MG TAB PO SCH ×2 (09:42→20:35)
[2021-01-12] MEDS: POTASSIUM CHLORIDE 10MEQ SR TABLET PO SCH (09:42)
[2021-01-12] MEDS: TAMSULOSIN 0.4 MG CAP PO SCH (09:42)
--- NOTE | 2021-01-12 10:36 | ECGEPIP ---
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
[2021-01-12] MEDS: NS 0.45% 1,000 ML IV SCH ×2 (11:56→22:14)
[2021-01-12] MEDS ORDERED: [UNRECOGNIZED DRUG - REMARK] SQ SCH (14:00)
--- NOTE | 2021-01-12 14:04 | IPNPDOC ---
Text Note Date of Service The patient was seen on 01/12/21. NOTE Subjective: Patient is examined at the bedside. He is aware that I am in the room and makes good eye contact. Mr. Tillman can say his first and last name but is not alert to date of , location, or time. He mumbles a few words that I cannot understand. He appear comfortable in the bed and has his breakfast sitting on a table next to him. I spoke to his sister today about the possibility of placement in a medical terminologist care facility. They are both in a place where they would benefit from additional help either at home or in the form of placement. Objective: Vitals: See below General: Mr. Tillman is sitting comfortably in bed, he is able to mumble a few words and makes eye contact with me. HEENT: PERRLA, mucous membranes appear dry, no lymphadenopathy, neck is supple Cardiovascular: tachycardic, regular rhythm with occasional premature atrial contractions, heart sounds are distant, no murmurs noted. Pulmonary: lung sounds are distant, equal air intake bilaterally Abdomen: scaphoid, positive bowel sounds, nontender to palpation in all four quadrants, soft Extremities: 2+ pulses throughout, no edema noted on bilateral lower extremities. capillary refill <2 seconds Skin: skin continues to appear diffusely dry on upper and lower extremities Psych: patient is alert to self Assessment: Mr. Tillman is an 80 year old male with past medical history of pancytopenia secondary to aplastic anemia, cognitive disability, and hyperlipidemia who presented to the emergency department after both he and his sister were found confused at their home during a wellness check. He was admitted to the hospital for treatment and further workup for presumed COVID encephalopathy. Metabolic encephalopathy: secondary to COVID vs dehydration/poor oral intake -superimposed on his baseline cognitive disability -patient is a poor historian and is only alert to self -patient is COVID positive -lactic acid 2.2 repeat 1.3 -head CT negative for acute intracranial abnormalities -blood cultures pending -fall risk precaution COVID-19 -patient's niece states that Norris likely caught COVID from his nephew Rut who "hangs out with many people". -patient does not qualify for monoclonal antibodies -patient has oxygen saturation of 97% on 3L NC -D-Dimer >4000, Ferritin 2412, CRP 22 Atypical pneumonia superimposed on COVID pneumonia -Chest x-ray shows diffuse hazy infiltrate bilaterally suspicious for pneumonia -continue ceftriaxone and doxycycline Day 3 -oxygen saturation 97% on 3L NC -procalcitonin 0.28 -patient positive for COVID and mycoplasma pneumonia IgG and IgM Poor oral intake -likely for last week as his sister who takes care of him has been confused and unable to care for him -BUN elevated -patient given 500ml bolus NS in ED -continue on maintenance fluids 90ml NS x 2 bags -2 gram sodium diet Aplastic anemia -diagnosed in 2015, patient follows with Dr. Chi -15% bone marrow cellularity -receives Retacrit injection every two weeks if his hemoglobin is <10. Patient missed his dose last Monday. Pancytopenia -secondary to aplastic anemia -WBC is 0.9 today, platelet count 70, hemoglobin 7.7 -patient missed his injection of Retacrit on Monday and usually receives this every 2 weeks for a hemoglobin <10 -ordered Remacrit, patient given injection at 14:16 -repeat CBC in AM Carbon monoxide poisoning, resolved -elevated carboxyhemoglobin 2.5, repeat 1.0 -patient's sister denies having a wood burning stove in the home. Unclear whether or not patient was exposed to CO in home or vehicle. -pH 7.5, pO2 96, pC02 29 Macrocytosis: -MCV 111 -B12 elevated -folate wnl DVT prophylaxis -continue lovenox 40mg Disposition: Continue to monitor patient respiratory status and AM CBC. PFS has been consulted on this patient for potential placement vs home health assi stance. VS,Fishbone, I+O VS, Fishbone, I+O Laboratory Tests 01/12/21 05:47 Vital Signs Date Time Temp Pulse Resp B/P (MAP) Pulse Ox O2 Delivery O2 Flow Rate FiO2 01/12/21 10:28 98.3 138 16 105/51 (69) 97 Nasal Cannula 3.0 I&O- Last 24 Hours up to 6 AM 01/12/21 06:00 Intake Total 1460 ml Balance 1460 ml GME ATTESTATION GME ATTESTATION My faculty preceptor for this patient encounter was physically present during the encounter and was fully available. All aspects of the patient interview, examination, medical decision making process, and medical care plan development were reviewed and approved by the faculty preceptor. The faculty preceptor is aware and concurs with the plan as stated in the body of this note and will attest to such by his/her cosignature. ATTENDING NOTE I, Celestine Mata MD, have independently examined this patient and performed my own physical exam with the medical students and residents in the room with me, as well as reviewed the documentation and edited where necessary. I have discussed in detail with the resident and student the findings and plan of treatment as documented and edited their note. I agree with their findings and treatment plan and have edited their documentation. JOSSY ROMO DO Jan 12, 2021 14:04 CELESTINE MTAA MD Jan 15, 2021 15:04
[2021-01-12 15:12] LABS: MYCOPLASMA PNEUMONIAE IgG 455 U/mL (0-99); MYCOPLASMA PNEUMONIAE IgM 795 U/mL (0-769)
[2021-01-12 17:12] LABS: HEMATOCRIT 23.3 % (42.0-52.0); HEMOGLOBIN 7.5 g/dl (13.5-17.5); MEAN CORPUSCULAR HEMOGLOBIN 36.1 pg (27.0-33.0); MEAN CORPUSCULAR HGB CONC 32.2 g/dl (32.0-36.5); RED BLOOD COUNT 2.08 10^6/uL (4.30-6.10)
[2021-01-12 17:18] LABS: PLATELET COUNT, AUTOMATED 66 10^3/uL (150-450); WHITE BLOOD COUNT 0.7 10^3/uL (4.0-10.0)
[2021-01-13] MEDS: ACETAMINOPHEN TAB 650MG DOSE (2X325MG) PO PRN ×2 (00:06→20:27)
[2021-01-13 00:09] VITALS: O2SAT 93
[2021-01-13 04:00] VITALS: O2SAT 94
[2021-01-13 06:00] VITALS: BP 104/52
[2021-01-13] MEDS: cefTRIAXone SOD 1 GM in D5W MINI-BAG PLUS 50 ML IV SCH (06:37)
[2021-01-13 07:05] LABS: BLOOD UREA NITROGEN 17 MG/DL (7-18); CALCIUM LEVEL 7.4 MG/DL (8.8-10.2); CARBON DIOXIDE LEVEL 28 MEQ/L (21-32); CHLORIDE LEVEL 106 MEQ/L (98-107); CREATININE FOR GFR 0.57 MG/DL (0.70-1.30); FERRITIN 1428 NG/ML (26-388); GLOMERULAR FILTRATION RATE > 60.0 (>35); GLUCOSE, FASTING 98 MG/DL (70-100); MAGNESIUM LEVEL 2.3 MG/DL (1.8-2.4); POTASSIUM SERUM 3.6 MEQ/L (3.5-5.1); SODIUM LEVEL 136 MEQ/L (136-145)
[2021-01-13 07:18] LABS: EOS % 3.1 % (0.0-3.0); HEMATOCRIT 23.9 % (42.0-52.0); HEMOGLOBIN 7.6 g/dl (13.5-17.5); LYMPH # 0.2 10^3/uL (1.5-5.0); LYMPH % 26.2 % (24.0-44.0); MEAN CORPUSCULAR HEMOGLOBIN 35.7 pg (27.0-33.0); MEAN CORPUSCULAR HGB CONC 31.8 g/dl (32.0-36.5); MEAN CORPUSCULAR VOLUME 112.2 fl (80.0-96.0); MONO % 3.1 % (2.0-8.0); NEUTROPHILS % 67.6 % (36.0-66.0); RED BLOOD COUNT 2.13 10^6/uL (4.30-6.10)
[2021-01-13 07:33] LABS: NEUTROPHILS # 0.4 10^3/uL (1.5-8.5); PLATELET COUNT, AUTOMATED 51 10^3/uL (150-450); WHITE BLOOD COUNT 0.7 10^3/uL (4.0-10.0)
[2021-01-13 07:44] LABS: INR 1.31; PROTHROMBIN TIME 16.7 SECONDS (12.7-14.5)
[2021-01-13 07:45] LABS: PARTIAL THROMBOPLASTIN TIME 36.1 SECONDS (25.9-37.0)
[2021-01-13] MEDS: ENOXAPARIN 40MG/0.4ML SYRINGE (J1650 PER 10MG) SC SCH (09:00)
[2021-01-13] MEDS: DOXYCYCLINE HYCLATE 100 MG in D5W MINI-BAG PLUS 100 ML IV SCH ×2 (09:49→20:27)
[2021-01-13] MEDS: POTASSIUM CHLORIDE 10MEQ SR TABLET PO SCH (09:50)
[2021-01-13] MEDS: guaiFENesin ER 600 MG TAB PO SCH ×2 (09:50→20:27)
[2021-01-13] MEDS: TAMSULOSIN 0.4 MG CAP PO SCH (09:50)
[2021-01-13 14:00] VITALS: BP 175/75
[2021-01-13] MEDS ORDERED: [UNRECOGNIZED DRUG - REMARK] SQ ONE (14:00)
--- NOTE | 2021-01-13 16:55 | IPNPDOC ---
Text Note Date of Service The patient was seen on 01/13/21. NOTE SUBJECTIVE: Patient was seen and examined this morning at bedside. He is sitting up comfortably in bed eating breakfast. He does speak to me and answer my questions, but he is still difficult to understand at times due to his speech. He denies any complaints or concerns today. OBJECTIVE: VITAL SIGNS: See below GENERAL: Alert, comfortable, in no acute distress HEENT: Normocephalic, atraumatic, moist mucous membranes NECK: Supple, trachea midline, no lymphadenopathy CARDIOVASCULAR: Regular rate and rhythm, normal S1 and S2. RESPIRATORY: Clear to auscultation bilaterally with equal air entry bilaterally. No wheezing, rhonchi, or rales. ABDOMEN: Soft, nontender, nondistended, bowel sounds present. EXTREMITIES: No cyanosis or edema. Pulses 2+/4 in bilateral upper and lower extremities SKIN: Dry skin on the upper and lower extremities bilaterally which is improved NEUROLOGIC: Alert and oriented x1 to person. No focal deficits appreciated ASSESSMENT/PLAN: 80-year-old male with past medical history of aplastic anemia with pancytopenia, follow-up disability, and hyperlipidemia who presented from home with confusion after please were called for a wellfare check patient's niece, in the emergency department found to have dehydration, pneumonia, and COVID-19 positive #Metabolic encephalopathy Likely multifactorial secondary to COVID-19 infection vs dehydration vs carbon monoxide poisoning On admission, head CT negative for acute intracranial abnormalities Component of baseline cognitive disability limits our evaluation of the patient's baseline mental status Treatment for specific etiologies as outlined below #COVID-19 pneumonia with hypoxia Due to hypoxia, patient does not qualify for monoclonal antibodies Continue to titrate down oxygen supplementation as tolerated to maintain saturations above 90% Continue supportive care, incentive spirometer #Superimposed bacterial pneumonia -Chest x-ray shows diffuse hazy infiltrate bilaterally suspicious for pneumonia -continue ceftriaxone and doxycycline Day #4 Procalcitonin on admission 0.28, antibiotics recommended -patient positive for COVID and mycoplasma pneumonia IgG and IgM Blood cultures negative at 48 hours #Dehydration secondary to poor oral intake Status post IV fluids, patient tolerating diet and encouraged to continue to take in fluids #Carbon monoxide poisoning, resolved Carboxyhemoglobin level elevated on admission, trended down #Aplastic anemia -diagnosed in 2015, patient follows with Dr. Chi -15% bone marrow cellularity -receives Retacrit injection every two weeks if his hemoglobin is <10. Patient missed his dose on 01/08. Chronic pancytopenia, continue to trend CBC daily Status post dose of Retacrit yesterday #Macrocytosis B12 and folate levels are not low DVT prophylaxis: Continue Lovenox 40 mg daily Disposition: Pending clinical improvement, PFS involved in coordinating discharge planning with the patient's niece, the patient's typical caregiver is also admitted to the hospital and the patient will likely not be able to return home until she is also medically cleared for discharge, PT/OT eval pending VS,Fishbone, I+O VS, Fishbone, I+O Laboratory Tests 01/13/21 06:17 Vital Signs Date Time Temp Pulse Resp B/P (MAP) Pulse Ox O2 Delivery O2 Flow Rate FiO2 01/13/21 06:00 97.3 106 19 104/52 (69) 96 Nasal Cannula 3.0 I&O- Last 24 Hours up to 6 AM 01/13/21 06:00 Intake Total 1250 ml Output Total 900 ml Balance 350 ml GME ATTESTATION GME ATTESTATION My faculty preceptor for this patient encounter was physically present during the encounter and was fully available. All aspects of the patient interview, examination, medical decision making process, and medical care plan development were reviewed and approved by the faculty preceptor. The faculty preceptor is aware and concurs with the plan as stated in the body of this note and will attest to such by his/her cosignature. ATTENDING NOTE I, Celestine Rollins MD, have independently examined this patient and performed my own physical exam with the medical students and residents in the room with me, as well as reviewed the documentation and edited where necessary. I have discussed in detail with the resident and student the findings and plan of treatment as documented and edited their note. I agree with their findings and treatment plan and have edited their documentation. ALESSANDRA JENKINS D.O. Jan 13, 2021 16:55 CELESTINE ROLLINS MD Jan 15, 2021 15:17
[2021-01-13 19:57] VITALS: O2SAT 94
[2021-01-13 20:00] VITALS: BP 107/55
[2021-01-14] VITALS: O2SAT 99
[2021-01-14 04:00] VITALS: BP 113/57; O2SAT 95
[2021-01-14] MEDS: cefTRIAXone SOD 1 GM in D5W MINI-BAG PLUS 50 ML IV SCH (06:22)
[2021-01-14 07:49] LABS: HEMATOCRIT 23.4 % (42.0-52.0); HEMOGLOBIN 7.5 g/dl (13.5-17.5); MEAN CORPUSCULAR HEMOGLOBIN 36.1 pg (27.0-33.0); MEAN CORPUSCULAR HGB CONC 32.1 g/dl (32.0-36.5); MEAN CORPUSCULAR VOLUME 112.5 fl (80.0-96.0); RED BLOOD COUNT 2.08 10^6/uL (4.30-6.10)
[2021-01-14 07:57] LABS: PLATELET COUNT, AUTOMATED 46 10^3/uL (150-450); WHITE BLOOD COUNT 0.7 10^3/uL (4.0-10.0)
[2021-01-14] MEDS: POTASSIUM CHLORIDE 10MEQ SR TABLET PO SCH (08:43)
[2021-01-14] MEDS: TAMSULOSIN 0.4 MG CAP PO SCH (08:43)
[2021-01-14] MEDS: DOXYCYCLINE HYCLATE 100 MG in D5W MINI-BAG PLUS 100 ML IV SCH (08:43)
[2021-01-14] MEDS: ENOXAPARIN 40MG/0.4ML SYRINGE (J1650 PER 10MG) SC SCH (08:43)
[2021-01-14] MEDS ORDERED: REMDESIVIR 200 MG in NS 250 ML IV ONE (14:00)
[2021-01-14 16:00] VITALS: BP 106/56
[2021-01-14] MEDS ORDERED: SODIUM CHLORIDE 0.9% INJ 10 ML SYR IV ONE (16:00)
[2021-01-14] MEDS: dexameTHASONE 20MG/5ML VIAL (J1100 PER 1MG) IV SCH ×2 (17:08→22:25)
--- NOTE | 2021-01-14 19:02 | IPNPDOC ---
Text Note Date of Service The patient was seen on 01/14/21. NOTE Subjective: Patient evaluated at bedside. He is alert to self and this appears to be his baseline cognition. He has eaten all of his breakfast and asks for help reaching his cup of water. He states that he has been "coughing a lot" and I explained to him that we are treating him for the pneumonia in his lungs. He has an oxygen saturation of 91% on 4L NC. Objective: Vitals: See below General: Mr. Tillman is more verbal today and appears somewhat uncomfortable. He asks for me to lower the head of the bed so he can lay back. HEENT: PERRLA, mucous membranes appear dry, no lymphadenopathy, neck is supple Cardiovascular: tachycardic, regular rhythm with occasional premature atrial contractions, heart sounds are distant, no murmurs noted. Pulmonary: lung sounds are distant, equal air intake bilaterally, no rhonchi are appreciated. Scattered faint end expiratory wheezes are noted. Abdomen: scaphoid, positive bowel sounds, nontender to palpation in all four quadrants, soft Extremities: 2+ pulses throughout, no edema noted on bilateral lower extremities. capillary refill <2 seconds Psych: patient is alert to self Assessment: Mr. Tillman is an 80 year old male with past medical history of pancytopenia secondary to aplastic anemia, cognitive disability, and hyperlipide soren who presented to the emergency department after both he and his sister were found confused at their home during a wellness check. He was admitted to the hospital for treatment and further workup for presumed COVID encephalopathy. COVID-19 -patient's niece states that Norris likely caught COVID from his nephew Rut who "hangs out with many people". -started patient on remdesivir and decadron -patient has oxygen saturation of 91% on 3L NC -Ferritin 1428 -repeat D-Dimer and COVID amplification ordered for the AM Atypical pneumonia superimposed on COVID pneumonia -Chest x-ray shows diffuse hazy infiltrate bilaterally suspicious for pneumonia -continue doxycycline, this provides coverage for mycoplasma -ceftriaxone discontinued -oxygen saturation 91% on 3L NC -procalcitonin 0.19 -patient positive for COVID and mycoplasma pneumonia IgG and IgM Metabolic encephalopathy: secondary to COVID vs dehydration/poor oral intake -superimposed on his baseline cognitive disability -patient is a poor historian and is only alert to self -COVID positive -head CT negative for acute intracranial abnormalities -blood cultures negative for growth after 72 hours -fall risk precaution Poor oral intake -likely for last week as his sister who takes care of him has been confused and unable to care for him -patient has good oral intake -2 gram sodium diet Aplastic anemia -diagnosed in 2015, patient follows with Dr. Chi -15% bone marrow cellularity -receives Retacrit injection every two weeks if his hemoglobin is <10. Patient missed his dose last Monday. Pancytopenia -secondary to aplastic anemia -WBC is 0.7 today, platelet count 46, hemoglobin 7.5 -patient missed his injection of Retacrit on Monday and usually receives this every 2 weeks for a hemoglobin <10 -patient given Remacrit 01/12/21 -repeat CBC in AM Carbon monoxide poisoning, resolved -elevated carboxyhemoglobin 2.5, repeat 1.0 -patient's sister denies having a wood burning stove in the home. Unclear whether or not patient was exposed to CO in home or vehicle. -pH 7.5, pO2 96, pC02 29 Macrocytosis: -MCV 111 -B12 elevated -folate wnl DVT prophylaxis -continue lovenox 40mg Disposition: Patient evaluated by PT today, they recommend assistance for mobility and continued rehab after DC. PFS has been contacted on this patient and his sister who is also admitted to PCU. Will possibly discharge patient tomorrow. VS,Fishbone, I+O VS, Fishbone, I+O Laboratory Tests 01/14/21 06:17 Vital Signs Date Time Temp Pulse Resp B/P (MAP) Pulse Ox O2 Delivery O2 Flow Rate FiO2 01/14/21 16:00 99.8 118 18 106/56 (73) 91 Nasal Cannula 4.0 I&O- Last 24 Hours up to 6 AM 01/14/21 06:00 Intake Total 100 ml Output Total 775 ml Balance -675 ml GME ATTESTATION GME ATTESTATION My faculty preceptor for this patient encounter was physically present during the encounter and was fully available. All aspects of the patient interview, examination, medical decision making process, and medical care plan development were reviewed and approved by the faculty preceptor. The faculty preceptor is aware and concurs with the plan as stated in the body of this note and will attest to such by his/her cosignature. ATTENDING NOTE I, Celestine Mata MD, have independently examined this patient and performed my own physical exam, as well as reviewed the documentation and edited where necessary. I have discussed in detail with the resident / student the findings and plan of treatment as documented by the resident / student and edited their note. I agree with their findings and treatment plan and have edited their documentation. JOSSY ROMO DO Jan 14, 2021 19:02 CELESTINE MATA MD Jan 28, 2021 12:54
[2021-01-14 20:00] VITALS: BP 94/53; O2SAT 94
[2021-01-14] MEDS: DOXYCYCLINE HYCLATE 100MG TABLET PO SCH (21:27)
[2021-01-15] VITALS (7 sets, daily range): BP systolic 91–105; BP diastolic 53–62; O2SAT 92–97
[2021-01-15 06:33] LABS: FIBRINOGEN 597 MG/DL (268-480); INR 1.35; PROTHROMBIN TIME 17.1 SECONDS (12.7-14.5)
[2021-01-15 06:34] LABS: PARTIAL THROMBOPLASTIN TIME 35.5 SECONDS (25.9-37.0)
[2021-01-15 06:55] LABS: FERRITIN 1336 NG/ML (26-388)
[2021-01-15 07:41] LABS: D-DIMER QUANT > 4000 ng/ml (<500)
[2021-01-15 07:53] LABS: BASO % 1.1 % (0.0-1.0); HEMATOCRIT 22.1 % (42.0-52.0); HEMOGLOBIN 7.2 g/dl (13.5-17.5); LYMPH # 0.1 10^3/uL (1.5-5.0); LYMPH % 15.2 % (24.0-44.0); MEAN CORPUSCULAR HEMOGLOBIN 35.8 pg (27.0-33.0); MEAN CORPUSCULAR HGB CONC 32.6 g/dl (32.0-36.5); MONO % 2.2 % (2.0-8.0); NEUTROPHILS % 80.4 % (36.0-66.0); RED BLOOD COUNT 2.01 10^6/uL (4.30-6.10)
[2021-01-15 08:01] LABS: WHITE BLOOD COUNT 0.9 10^3/uL (4.0-10.0)
[2021-01-15 08:02] LABS: NEUTROPHILS # 0.7 10^3/uL (1.5-8.5); PLATELET COUNT, AUTOMATED 37 10^3/uL (150-450)
[2021-01-15 08:11] LABS: ALBUMIN 0.3 GM/DL (3.2-5.2); ALT/SGPT 24 U/L (12-78); BILIRUBIN,TOTAL 0.3 MG/DL (0.2-1.0); BLOOD UREA NITROGEN 25 MG/DL (7-18); CALCIUM LEVEL 7.7 MG/DL (8.8-10.2); CARBON DIOXIDE LEVEL 26 MEQ/L (21-32); CHLORIDE LEVEL 107 MEQ/L (98-107); CREATININE FOR GFR 0.57 MG/DL (0.70-1.30); GLOMERULAR FILTRATION RATE > 60.0 (>35); GLUCOSE, FASTING 130 MG/DL (70-100); SODIUM LEVEL 138 MEQ/L (136-145); TOTAL PROTEIN 5.5 GM/DL (6.4-8.2)
[2021-01-15] MEDS: ENOXAPARIN 40MG/0.4ML SYRINGE (J1650 PER 10MG) SC SCH (09:00)
--- NOTE | 2021-01-15 10:54 | REP ---
INDICATION: pneumonia. COMPARISON: AP CXR 01/11/2021; CT 12/21/2020. TECHNIQUE: AP portable upright FINDINGS: Lung harris show hyperinflation. There is apical pleural scarring and extensive infiltrates in the right greater than left lung. These are hazy and patchy in nature but progressively more dense peripheral today than 4 days ago on the right. Also some increased density in the left lateral base and retrocardiac region. This represents progression of pneumonia with more consolidative components. Small effusions difficult to exclude heart size upper limits of normal for AP portable technique and this degree of hyperinflation. There are emphysematous changes again noted the aorta is calcified and tortuous. There is left atrial enlargement with elevation of the left mainstem bronchus. The right and left joselito show prominence of pulmonary arteries, likely related to pulmonary artery hypertension from COPD. No moody edema. Bones unchanged. Incidental note is made of old healed and remodeled proximal humeral fracture on the right. IMPRESSION: 1. Progression of pneumonia bilaterally with more confluent dense opacities peripherally throughout the right lung harris and in the lateral base on the left. There are still diffuse hazy infiltrates and these also have increased on both sides. Small effusions the suspected. There is mild cardiomegaly without moody edema. <Electronically signed by Herman Mejia > 01/15/21 1059
[2021-01-15] MEDS: dexameTHASONE 20MG/5ML VIAL (J1100 PER 1MG) IV SCH ×2 (13:30→22:01)
[2021-01-15] MEDS: DOXYCYCLINE HYCLATE 100MG TABLET PO SCH ×2 (13:30→22:01)
[2021-01-15] MEDS: POTASSIUM CHLORIDE 10MEQ SR TABLET PO SCH (13:30)
[2021-01-15] MEDS: REMDESIVIR 100 MG in NS 250 ML IV SCH (13:31)
[2021-01-15] MEDS: TAMSULOSIN 0.4 MG CAP PO SCH (13:35)
[2021-01-15] MEDS: SODIUM CHLORIDE 0.9% INJ 10 ML SYR IV SCH (15:00)
--- NOTE | 2021-01-15 16:12 | IPNPDOC ---
Text Note Date of Service The patient was seen on 01/15/21. NOTE Subjective: Patient is examined at bedside. He appears unchanged from yesterday and continues to be functioning at his baseline cognition of being alert only to self. Patient is noted to appear more sleepy than usual, he has been in the hospital for the last 5 days and this may be causing him to have an irregular sleeping pattern. He has an oxygen saturation of 93% on 2L NC. Objective: Vitals: See below General: Patient is lying in bed resting in no acute distress. HEENT: PERRLA, mucous membranes appear dry, no lymphadenopathy, neck is supple Cardiovascular: heart sounds are distant, regular rate and rhythm, no murmurs noted. Pulmonary: lung sounds are distant, end expiratory wheezes appreciated throughout, equal air intake bilaterally, no rhonchi are appreciated. Abdomen: scaphoid, positive bowel sounds, nontender to palpation in all four quadrants, soft Extremities: 2+ pulses throughout, no edema noted on bilateral lower extremities. capillary refill <2 seconds Psych: patient is alert to self Assessment: Mr. Tillman is an 80 year old male with past medical history of pancytopenia secondary to aplastic anemia, cognitive disability, and hyperlipidemia who presented to the emergency department after both he and his sister were found confused at their home during a wellness check. He was admitted to the hospital for treatment and further workup for presumed COVID encephalopathy. COVID-19 -patient's niece states that Norris likely caught COVID from his nephew Rut who "hangs out with many people". -continue patient on remdesivir and decadron -chest x-ray ordered today shows progression of bilateral pneumonia, will not downgrade patient to ALC at this time. -Patient has superimposed mycoplasma pneumonia on COVID pneumonia -Ferritin is downtrending Atypical pneumonia superimposed on COVID pneumonia -continue doxycycline, this provides coverage for mycoplasma -oxygen saturation 93% on 3L NC -procalcitonin 0.32 -patient positive for COVID and mycoplasma pneumonia IgG and IgM Pancytopenia -secondary to aplastic anemia -WBC is 0.9 today, platelet count 37, hemoglobin 7.2 -patient missed his injection of Retacrit on Monday and usually receives this every 2 weeks for a hemoglobin <10 -patient given Remacrit 01/12/21 -platelets have been downtrending, today his platelets are 37. Will hold his lovenox today and recheck in AM. Metabolic encephalopathy: secondary to COVID vs dehydration/poor oral intake -superimposed on his baseline cognitive disability -patient is a poor historian and is only alert to self -COVID positive -head CT negative for acute intracranial abnormalities -blood cultures negative for growth after 72 hours -fall risk precaution Poor oral intake -likely for last week as his sister who takes care of him has been confused and unable to care for him -patient has good oral intake -2 gram sodium diet Aplastic anemia -diagnosed in 2015, patient follows with Dr. Chi -15% bone marrow cellularity -receives Retacrit injection every two weeks if his hemoglobin is <10. Patient missed his dose last Monday. Carbon monoxide poisoning, resolved -elevated carboxyhemoglobin 2.5, repeat 1.0 -patient's sister denies having a wood burning stove in the home. Unclear whether or not patient was exposed to CO in home or vehicle. -pH 7.5, pO2 96, pC02 29 Macrocytosis: -MCV 111 -B12 elevated -folate wnl DVT prophylaxis -Holding lovenox today as patient's platelet count is 37. TEDs and sequentials Disposition: Will continue to monitor his respiratory status. Patient's pneumonia is worsening, continue remdesivir, decadron, and doxycycline. Patient was not downgraded to ALC today because of his worsening pneumonia. He is expected to be downgraded after he receives the full course of remdesivir. He and his sister will require rehabilitation and likely long term acute care registered nurse care placement. VS,Fishbone, I+O VS, Fishbone, I+O Laboratory Tests 01/15/21 05:49 Vital Signs Date Time Temp Pulse Resp B/P (MAP) Pulse Ox O2 Delivery O2 Flow Rate FiO2 01/15/21 12:00 97.5 85 91/54 (66) 95 Nasal Cannula 2.0 01/15/21 04:00 16 I&O- Last 24 Hours up to 6 AM 01/15/21 06:00 Intake Total 1100 ml Output Total 450 ml Balance 650 ml GME ATTESTATION GME ATTESTATION My faculty preceptor for this patient encounter was physically present during the encounter and was fully available. All aspects of the patient interview, examination, medical decision making process, and medical care plan development were reviewed and approved by the faculty preceptor. The faculty preceptor is aware and concurs with the plan as stated in the body of this note and will attest to such by his/her cosignature. ATTENDING NOTE I, Celestine Mata MD, have independently examined this patient and performed my own physical exam, as well as reviewed the documentation and edited where necessary. I have discussed in detail with the resident / student the findings and plan of treatment as documented by the resident / student and edited their note. I agree with their findings and treatment plan and have edited their documentation. JOSSY ORMO DO Jan 15, 2021 16:12 CELESTINE MATA MD Jan 28, 2021 12:56
[2021-01-16 00:27] VITALS: O2SAT 93
[2021-01-16 04:00] VITALS: BP 157/66
[2021-01-16 04:17] VITALS: O2SAT 92
[2021-01-16 06:27] LABS: BLOOD UREA NITROGEN 40 MG/DL (7-18); CALCIUM LEVEL 8.1 MG/DL (8.8-10.2); CARBON DIOXIDE LEVEL 27 MEQ/L (21-32); CHLORIDE LEVEL 110 MEQ/L (98-107); GLOMERULAR FILTRATION RATE > 60.0 (>35); GLUCOSE, FASTING 122 MG/DL (70-100); POTASSIUM SERUM 3.6 MEQ/L (3.5-5.1); SODIUM LEVEL 142 MEQ/L (136-145)
[2021-01-16 06:51] LABS: APPEARANCE, URINE HAZY (CLEAR); BACTERIA, URINE AUTO NEGATIVE (NEGATIVE); BILIRUBIN, URINE AUTO NEGATIVE (NEGATIVE); BLOOD, URINE BLOOD NEGATIVE (NEGATIVE); COLOR, URINE YELLOW (YELLOW); GLUCOSE, URINE (UA) AUTO NEGATIVE (NEGATIVE); KETONE, URINE AUTO NEGATIVE (NEGATIVE); LEUKOCYTE ESTERASE, URINE AUTO NEGATIVE (NEGATIVE); MUCUS, URINE SMALL (NEGATIVE); NITRITE, URINE AUTO NEGATIVE (NEGATIVE); PROTEIN, URINE AUTO NEGATIVE (NEGATIVE); RBC, URINE AUTO 1 /HPF (0-3); SPECIFIC GRAVITY URINE AUTO 1.025 (1.002-1.035); SQUAMOUS EPITHELIAL CELL UR AU 1 /HPF (0-6); UROBILINOGEN, URINE AUTO 0.2 mg/dL (0.0-2.0); WBC, URINE AUTO 1 /HPF (0-3)
[2021-01-16 08:00] VITALS: O2SAT 91
[2021-01-16] MEDS: POTASSIUM CHLORIDE 10MEQ SR TABLET PO SCH (08:23)
[2021-01-16] MEDS: TAMSULOSIN 0.4 MG CAP PO SCH (08:23)
[2021-01-16] MEDS: DOXYCYCLINE HYCLATE 100MG TABLET PO SCH ×2 (08:23→21:20)
[2021-01-16] MEDS: dexameTHASONE 20MG/5ML VIAL (J1100 PER 1MG) IV SCH ×2 (10:59→23:13)
--- NOTE | 2021-01-16 12:35 | IPNPDOC ---
Text Note Date of Service The patient was seen on 01/16/21. NOTE Subjective: Patient is examined at bedside. No acute overnight events reported. Patient voices no new medical complaints this morning. He does not answer questions or provide any useful information. Objective: Vital Signs: reviewed and within normal limits General: NAD, sitting comfortably at edge of bed HEENT: NC/AT, EOMI Respiratory: no accessory muscle use Abd: nondistended Ext: no edema Skin: no rashes Neuro: no obvious gross focal deficits Psych: awake, not answering questions A/P: 80M with PMHx including pancytopenia secondary to aplastic anemia, cognitive di sability, and hyperlipidemia who presented to the ED after both he and his sister were found confused at their home during a wellness check. He was admitted to the hospital for treatment and further workup, found to be COVID+. #COVID-19 - as per chart review - patient's niece stated he likely caught COVID from his nephew Rut who "hangs out with many people". -continue patient on remdesivir day #2 - taper decadron to 6 BID - CXR shows progression of bilateral pneumonia -Patient has superimposed mycoplasma pneumonia on COVID pneumonia -continue to follow inflammatory markers #Atypical pneumonia superimposed on COVID pneumonia -continue doxycycline, this provides coverage for mycoplasma -saturating well on room air, occasionally with 2L O2 -procalcitonin 0.32 -patient positive for COVID and mycoplasma pneumonia IgG and IgM #Pancytopenia -secondary to aplastic anemia -WBC is 0.9 today, platelet count 37, hemoglobin 7.2 -patient missed his injection of Retacrit on Monday and usually receives this every 2 weeks for a hemoglobin <10 -patient given Remacrit 01/12/21 -platelets have been downtrending, today his platelets are 37. Will hold his lovenox today and recheck in AM. #Metabolic encephalopathy: secondary to COVID vs dehydration/poor oral intake -superimposed on his baseline cognitive disability -patient is a poor historian and is only alert to self -COVID positive -head CT negative for acute intracranial abnormalities -blood cultures negative for growth after 72 hours -fall risk precaution #Poor oral intake -likely for last week as his sister who takes care of him has been confused and unable to care for him -patient has good oral intake -2 gram sodium diet #Aplastic anemia -diagnosed in 2015, patient follows with Dr. Chi -15% bone marrow cellularity -receives Retacrit injection every two weeks if his hemoglobin is <10. Patient missed his dose last Monday. #Carbon monoxide poisoning, resolved -elevated carboxyhemoglobin 2.5, repeat 1.0 -patient's sister denies having a wood burning stove in the home. Unclear whether or not patient was exposed to CO in home or vehicle. -pH 7.5, pO2 96, pC02 29 #Macrocytosis: -MCV 111 -B12 elevated -folate wnl #DVT prophylaxis -DC lovenox 2/2 thrombocytopenia - TEDs and sequentials Disposition: continue with current regimen for treatment of COVID/mycoplasma pna VS,Fishbone, I+O VS, Fishbone, I+O Laboratory Tests 01/16/21 05:53 Vital Signs Date Time Temp Pulse Resp B/P (MAP) Pulse Ox O2 Delivery O2 Flow Rate FiO2 01/16/21 11:47 98 Room Air 01/16/21 08:00 2.0 01/16/21 04:00 97.5 75 16 157/66 (96) I&O- Last 24 Hours up to 6 AM 01/16/21 05:59 Intake Total 720 ml Output Total 50 ml Balance 670 ml SEFERINO PATRICIO MD Jan 16, 2021 12:35
[2021-01-16] MEDS: SODIUM CHLORIDE 0.9% INJ 10 ML SYR IV SCH (13:21)
[2021-01-16] MEDS: REMDESIVIR 100 MG in NS 250 ML IV SCH (13:21)
[2021-01-16 14:00] VITALS: BP 107/58
[2021-01-16 20:00] VITALS: BP 110/53; O2SAT 93
[2021-01-17 06:36] LABS: HEMATOCRIT 22.1 % (42.0-52.0); HEMOGLOBIN 7.1 g/dl (13.5-17.5); MEAN CORPUSCULAR HEMOGLOBIN 35.3 pg (27.0-33.0); MEAN CORPUSCULAR HGB CONC 32.1 g/dl (32.0-36.5); RED BLOOD COUNT 2.01 10^6/uL (4.30-6.10); WHITE BLOOD COUNT 1.2 10^3/uL (4.0-10.0)
[2021-01-17 06:39] LABS: PLATELET COUNT, AUTOMATED 21 10^3/uL (150-450)
[2021-01-17 06:50] LABS: FIBRINOGEN 219 MG/DL (268-480); INR 1.56; PARTIAL THROMBOPLASTIN TIME 31.7 SECONDS (25.9-37.0); PROTHROMBIN TIME 19.1 SECONDS (12.7-14.5)
[2021-01-17 07:06] LABS: ALBUMIN 1.3 GM/DL (3.2-5.2); ALT/SGPT 82 U/L (12-78); BILIRUBIN,TOTAL 0.8 MG/DL (0.2-1.0); BLOOD UREA NITROGEN 47 MG/DL (7-18); CALCIUM LEVEL 7.9 MG/DL (8.8-10.2); CARBON DIOXIDE LEVEL 25 MEQ/L (21-32); CHLORIDE LEVEL 112 MEQ/L (98-107); CREATININE FOR GFR 0.68 MG/DL (0.70-1.30); FERRITIN 1559 NG/ML (26-388); GLOMERULAR FILTRATION RATE > 60.0 (>35); GLUCOSE, FASTING 98 MG/DL (70-100); POTASSIUM SERUM 4.1 MEQ/L (3.5-5.1); SODIUM LEVEL 143 MEQ/L (136-145); TOTAL PROTEIN 5.8 GM/DL (6.4-8.2)
[2021-01-17 07:19] LABS: D-DIMER QUANT > 4000 ng/ml (<500)
[2021-01-17 07:28] LABS: ATYPICAL LYMPH 1 % (0-5); LYMPHOCYTES 13 % (16-44); MONOCYTES 1 % (0-5); NEUTROPHILS 83 % (28-66)
[2021-01-17 07:29] LABS: ANISOCYTOSIS 2+
[2021-01-17 07:30] LABS: SCHISTOCYTES 3+
[2021-01-17 07:31] LABS: PLATELET ESTIMATE MARKED DECREASE (NORMAL); TEAR DROP CELLS 1+
[2021-01-17 07:32] LABS: OVALOCYTES 1+
[2021-01-17 08:00] VITALS: BP 115/53; O2SAT 95
[2021-01-17] MEDS: DOXYCYCLINE HYCLATE 100MG TABLET PO SCH ×2 (08:35→21:11)
[2021-01-17] MEDS: POTASSIUM CHLORIDE 10MEQ SR TABLET PO SCH (08:35)
[2021-01-17] MEDS: TAMSULOSIN 0.4 MG CAP PO SCH (08:35)
[2021-01-17] MEDS: dexameTHASONE 20MG/5ML VIAL (J1100 PER 1MG) IV SCH ×2 (11:22→22:46)
[2021-01-17 12:00] VITALS: O2SAT 96
[2021-01-17] MEDS: REMDESIVIR 100 MG in NS 250 ML IV SCH (13:16)
[2021-01-17] MEDS: SODIUM CHLORIDE 0.9% INJ 10 ML SYR IV SCH (13:17)
[2021-01-17 14:00] VITALS: BP 129/53
[2021-01-17] MEDS ORDERED: guaiFENesin DM LIQ 10ML UD PO PRN (17:50)
[2021-01-17 20:00] VITALS: BP 118/54; O2SAT 94
[2021-01-18] VITALS (10 sets, daily range): BP systolic 104–126; BP diastolic 56–84; O2SAT 84–97
[2021-01-18 06:13] LABS: HEMATOCRIT 21.1 % (42.0-52.0); MEAN CORPUSCULAR HEMOGLOBIN 35.6 pg (27.0-33.0); MEAN CORPUSCULAR HGB CONC 32.2 g/dl (32.0-36.5); MEAN CORPUSCULAR VOLUME 110.5 fl (80.0-96.0); RED BLOOD COUNT 1.91 10^6/uL (4.30-6.10); WHITE BLOOD COUNT 1.2 10^3/uL (4.0-10.0)
[2021-01-18 06:18] LABS: PLATELET COUNT, AUTOMATED 17 10^3/uL (150-450)
[2021-01-18 06:20] LABS: HEMOGLOBIN 6.8 g/dl (13.5-17.5)
[2021-01-18 06:39] LABS: ALBUMIN 1.3 GM/DL (3.2-5.2); ALT/SGPT 79 U/L (12-78); BILIRUBIN,TOTAL 0.8 MG/DL (0.2-1.0); BLOOD UREA NITROGEN 43 MG/DL (7-18); CALCIUM LEVEL 7.8 MG/DL (8.8-10.2); CARBON DIOXIDE LEVEL 26 MEQ/L (21-32); CHLORIDE LEVEL 112 MEQ/L (98-107); CREATININE FOR GFR 0.66 MG/DL (0.70-1.30); GLOMERULAR FILTRATION RATE > 60.0 (>35); GLUCOSE, FASTING 92 MG/DL (70-100); POTASSIUM SERUM 4.5 MEQ/L (3.5-5.1); SODIUM LEVEL 141 MEQ/L (136-145); TOTAL PROTEIN 5.4 GM/DL (6.4-8.2)
[2021-01-18 06:58] LABS: ANISOCYTOSIS 2+; ATYPICAL LYMPH 1 % (0-5); LYMPHOCYTES 10 % (16-44); MONOCYTES 1 % (0-5); NEUTROPHILS 88 % (28-66); PLATELET ESTIMATE MARKED DECREASE (NORMAL)
[2021-01-18 06:59] LABS: OVALOCYTES 1+; TEAR DROP CELLS 1+
[2021-01-18 07:00] LABS: SCHISTOCYTES 1+
--- NOTE | 2021-01-18 08:30 | IPNPDOC ---
Text Note Date of Service The patient was seen on 01/18/21. NOTE Subjective: Patient is examined at bedside. No acute overnight events reported. Patient voices no new medical complaints this morning. He does not answer questions or provide any useful information. Objective: Vital Signs: reviewed and within normal limits General: NAD, sitting comfortably at edge of bed HEENT: NC/AT, EOMI Respiratory: no accessory muscle use Abd: nondistended Ext: no edema Skin: no rashes Neuro: no obvious gross focal deficits Psych: awake, not answering questions A/P: 80M with PMHx including pancytopenia secondary to aplastic anemia, cognitive di sability, and hyperlipidemia who presented to the ED after both he and his sister were found confused at their home during a wellness check. He was admitted to the hospital for treatment and further workup, found to be COVID+. #COVID-19 - as per chart review - patient's niece stated he likely caught COVID from his nephew Rut who "hangs out with many people". -continue patient on remdesivir day #3 - taper decadron to 6 BID - CXR shows progression of bilateral pneumonia -Patient has superimposed mycoplasma pneumonia on COVID pneumonia -continue to follow inflammatory markers #Atypical pneumonia superimposed on COVID pneumonia -continue doxycycline, this provides coverage for mycoplasma -saturating well on room air, occasionally with 2L O2 -procalcitonin 0.32 -patient positive for COVID and mycoplasma pneumonia IgG and IgM #Pancytopenia -secondary to aplastic anemia -patient missed his injection of Retacrit on Monday and usually receives this every 2 weeks for a hemoglobin <10 -patient given Remacrit 01/12/21 -platelets have been downtrending, today his platelets are 37. Will hold his lovenox today and recheck in AM. #Metabolic encephalopathy: secondary to COVID vs dehydration/poor oral intake -superimposed on his baseline cognitive disability -patient is a poor historian and is only alert to self -COVID positive -head CT negative for acute intracranial abnormalities -blood cultures negative -fall risk precaution #Poor oral intake -likely for last week as his sister who takes care of him has been confused and unable to care for him -patient has good oral intake -2 gram sodium diet #Aplastic anemia -diagnosed in 2015, patient follows with Dr. Chi -15% bone marrow cellularity -receives Retacrit injection every two weeks if his hemoglobin is <10. Patient missed his dose last Monday. #Carbon monoxide poisoning, resolved -elevated carboxyhemoglobin 2.5, repeat 1.0 -patient's sister denies having a wood burning stove in the home. Unclear whether or not patient was exposed to CO in home or vehicle. -pH 7.5, pO2 96, pC02 29 #Macrocytosis: -MCV 111 -B12 elevated -folate wnl #DVT prophylaxis -DC lovenox 2/2 thrombocytopenia - TEDs and sequentials Disposition: discussed with family member regarding possible transfusion, she is agreeable VS,Yas, I+O VS, Yas, I+O Laboratory Tests 01/18/21 05:54 Vital Signs Date Time Temp Pulse Resp B/P (MAP) Pulse Ox O2 Delivery O2 Flow Rate FiO2 01/18/21 04:00 96.2 86 19 110/60 (77) 86 Nasal Cannula 3.0 I&O- Last 24 Hours up to 6 AM 01/18/21 05:59 Intake Total 970 ml Output Total 200 ml Balance 770 ml SEFERINO PATRICIO MD Jan 18, 2021 08:30
--- NOTE | 2021-01-18 08:35 | IPNPDOC ---
Text Note Date of Service The patient was seen on 01/18/21. NOTE Subjective: Patient seen and examined at bedside. No acute overnight events reported. Patient voices no new medical complaints this morning, but is a poor historian, unable to provide information. Objective: Vital Signs: reviewed General: NAD, lying comfortably in bed, elderly, frail HEENT: NC/AT, EOMI Respiratory: Speaking in full sentences easily, no accessory muscle use Abd: nondistended Ext: no edema Skin: no rashes MSK: full ROM at large joints Neuro: no gross focal deficits Psych: Awake, alert, unable to assess orientation as patient is not answering questions appropriately A/P: 80M with PMHx including pancytopenia secondary to aplastic anemia, cognitive di sability, and hyperlipidemia who presented to the ED after both he and his sister were found confused at their home during a wellness check. He was admitted to the hospital for treatment and further workup, found to be COVID+. #COVID-19 - increased oxygen requirements today, now on 4L nasal cannula - as per chart review - patient's niece stated he likely caught COVID from his nephew Rut who "hangs out with many people". -continue patient on remdesivir day 06/07 - decadron 6 BID - CXR shows progression of bilateral pneumonia -Patient has superimposed mycoplasma pneumonia on COVID pneumonia -continue to follow inflammatory markers #Atypical pneumonia superimposed on COVID pneumonia -continue doxycycline -procalcitonin 0.32 -patient positive for COVID and mycoplasma pneumonia IgG and IgM #Metabolic encephalopathy: secondary to COVID vs dehydration/poor oral intake -superimposed on his baseline cognitive disability -patient is a poor historian and is only alert to self -head CT negative for acute intracranial abnormalities -blood cultures negative -fall risk precaution #pancytopenia secondary to Aplastic anemia -diagnosed in 2016, patient follows with Dr. Chi -15% bone marrow cellularity -receives Retacrit injection every two weeks if his hemoglobin is <10. Patient missed his dose last Monday. - discussed with hematology - will administer 40,0000 units EPO today, transfuse 2 PRBC as per recs - verbal consent provided by family member over telephone -patient given Remacrit 01/12/21, 01/13/21 #Carbon monoxide poisoning, resolved -elevated carboxyhemoglobin 2.5, repeat 1.0 -patient's sister denies having a wood burning stove in the home. Unclear whether or not patient was exposed to CO in home or vehicle. -pH 7.5, pO2 96, pC02 29 #DVT prophylaxis -DC lovenox 2/2 thrombocytopenia - TEDs and sequentials Disposition: discussed with hematology, will administer 40K units EPO, transfuse 2 PRBC - discussed with pharmacy; previously discussed with family member regarding possible transfusion, she is agreeable; poor venous access - ordered for picc line today VS,Fishbone, I+O VS, Fishbone, I+O Laboratory Tests 01/18/21 05:54 Vital Signs Date Time Temp Pulse Resp B/P (MAP) Pulse Ox O2 Delivery O2 Flow Rate FiO2 01/18/21 04:00 96.2 86 19 110/60 (77) 86 Nasal Cannula 3.0 I&O- Last 24 Hours up to 6 AM 01/18/21 05:59 Intake Total 970 ml Output Total 200 ml Balance 770 ml SEFERINO PATRICIO MD Jan 18, 2021 08:35
[2021-01-18] MEDS: POTASSIUM CHLORIDE 10MEQ SR TABLET PO SCH (08:59)
[2021-01-18] MEDS: TAMSULOSIN 0.4 MG CAP PO SCH (08:59)
[2021-01-18] MEDS ORDERED: [UNRECOGNIZED DRUG - REMARK] SQ ONE (11:00)
[2021-01-18] MEDS: dexameTHASONE 20MG/5ML VIAL (J1100 PER 1MG) IV SCH (12:48)
[2021-01-18] MEDS: REMDESIVIR 100 MG in NS 250 ML IV SCH (17:00)
[2021-01-18] MEDS: SODIUM CHLORIDE 0.9% INJ 10 ML SYR IV SCH (17:01)
[2021-01-18 17:09] LABS: BODY FLUID CULTURE Not indicated. (.); LEGIONELLA ANTIGEN URINE Negative (Negative); ORGANISM ID Not indicated. (.); SPECIMEN SOURCE Urine (.); URINE STREP PNEUMONIAE ANTIGEN Negative (Negative)
[2021-01-18 20:33] LABS: HEMATOCRIT 26.9 % (42.0-52.0)
[2021-01-18 20:35] LABS: HEMOGLOBIN 8.8 g/dl (13.5-17.5)
[2021-01-18 21:07] LABS: CK-MB VALUE MASS 8.1 NG/ML (<3.6); MB/CK RELATIVE INDEX 9.2 (< OR =4); TROPONIN I 0.29 NG/ML (< 0.10)
--- NOTE | 2021-01-18 22:34 | CR.PDOC ---
General Date of Consultation: Jan 18, 2021 Referring Provider: SEFERINO PATRICIO MD Primary Care Physician: Td Arrieta MD Attending Physician: SEFERINO PATRICIO MD Consultation REASON FOR CONSULTATION/CHIEF COMPLAINT: [Pancytopenia in the setting of aplastic anemia and COVID-19 pneumonia]. HISTORY OF PRESENT ILLNESS: [This 80-year-old male patient of Dr. Chi has history of aplastic anemia and is followed by [facility] on a monthly basis]. ALLERGIES: Please see below. HOME MEDICATIONS: Please see below. PAST MEDICAL HISTORY: 1. [Congenital cognitive impairment]. 2. [Pancytopenia with hypocellular bone marrow]. 3. Hyperlipidemia 4. Closed reduction of right shoulder fracture PAST SURGICAL HISTORY: 1. [Bilateral cataract excision] 2. [Colonoscopy with hemorrhoids as the only finding] FAMILY HISTORY: Father: [ at 79 due to lung cancer and with a history of coronary artery disease] Mother: [ at 40 from myocardial infarction] Siblings: [Alive and well] Children: [Alive and well] Hereditary Diseases: Unexpected deaths due to medical reasons: SOCIAL HISTORY: Marital status and/or living arrangements: [He is single and lives in [facility] with his Sister Marilia] Children: [None] Employment: [Disabled] Tobacco use:[[id number] history but quit in 1989] ETOH: [Quit alcohol in 1989] Illicit drug use: [No history] IV drug use: [No history] Other relevant social factors: [Congenital cognitive impairment so he cannot live alone] REVIEW OF SYSTEMS: CONSTITUTIONAL: [Appetite has reduced since admission, denies chills fatigue malaise]. HEENT: [Denies headaches dysphagia sore throat epistaxis vision change]. CARDIOVASCULAR: [Denies chest pain palpitations orthopnea edema]. RESPIRATORY: [Denies cough wheeze dyspnea]. GENITOURINARY: [Denies dysuria frequency incontinence]. MUSCULOSKELETAL: [Denies muscle or joint pains]. GASTROINTESTINAL: [Denies nausea vomiting diarrhea]. SKIN: [Denies rashes lesions jaundice bruising]. NEUROLOGICAL: [Reports weakness. Denies problems with ambulation or speech.]. PSYCHIATRIC: [His mood is normal, but he expresses anxiety about going home too early before he is recovered]. ENDOCRINE: [Denies polydipsia polyphagia heat or cold intolerance]. HEMATOLOGIC/LYMPHATIC: [Denies bruising bleeding lymphadenopathy.]. ALLERGIC/IMMUNOLOGIC: [No known medication allergies]. PHYSICAL EXAMINATION: VITAL SIGNS: Please see below. GENERAL APPEARANCE: [Alert and oriented x2 no acute distress]. HEENT: [PERRL a, conjunctiva and lids normal sclera is nonicteric]. RESPIRATORY: [Clear to auscultation bilaterally]. CARDIOVASCULAR: [Regular rate and rhythm no murmurs]. ABDOMEN: [Normal bowel sounds, soft nondistended nontender no hepatosplenomegaly]. EXTREMITIES: [Moves all extremities, normal range of motion]. NEUROLOGICAL: [Normal speech normal muscle tone]. PSYCHIATRIC: [Alert and oriented x2, no depression, mild anxiety.]. LABORATORY DATA: see erica ASSESSMENT/PLAN: 1. [Aplastic anemia with a history of chronic pancytopenia in a patient who is COVID-19 positive-continue Retacrit 40,000 units subcu weekly, transfuse 2 units PRBC today, continue to monitor CBC daily. Transfuse platelets if platelet count <10. Give filgrastim 300 mcg subcu daily until ANC greater than 1.5.]. 2. . Vital Signs/I&O Vital Signs Date Time Temp Pulse Resp B/P (MAP) Pulse Ox O2 Delivery O2 Flow Rate FiO2 01/18/21 10:12 93 4.0 01/18/21 08:00 Nasal Cannula 01/18/21 04:00 96.2 86 19 110/60 (77) I&O- Last 24 Hours up to 6 AM 01/18/21 06:00 Intake Total 970 ml Output Total 200 ml Balance 770 ml Laboratory Data Labs 24H Item Value Date Time Sodium Level 141 MEQ/L 01/18/21 0554 Potassium Level 4.5 MEQ/L 01/18/21 0554 Chloride Level 112 MEQ/L H 01/18/21 0554 Carbon Dioxide Level 26 MEQ/L 01/18/21 0554 Anion Gap 3 MEQ/L L 01/18/21 0554 Blood Urea Nitrogen 43 MG/DL H 01/18/21 0554 Creatinine 0.66 MG/DL L 01/18/21 0554 Glomerular Filtration Rate > 60.0 01/18/21 0554 Fasting Glucose 92 MG/DL 01/18/21 0554 Calcium Level 7.8 MG/DL L 01/18/21 0554 Total Bilirubin 0.8 MG/DL 01/18/21 0554 Aspartate Amino Transf (AST/SGOT) 108 U/L H 01/18/21 0554 Alanine Aminotransferase (ALT/SGPT) 79 U/L H 01/18/21 0554 Alkaline Phosphatase 194 U/L H 01/18/21 0554 Total Protein 5.4 GM/DL L 01/18/21 0554 Albumin 1.3 GM/DL L 01/18/21 0554 Albumin/Globulin Ratio 0.3 01/18/21 0554 Laboratory Tests 2 01/18/21 05:54: Item Value Date Time White Blood Count 1.2 10^3/uL L 01/18/21 0554 Red Blood Count 1.91 10^6/uL L 01/18/21 0554 Hemoglobin 6.8 g/dl *L 01/18/21 0554 Hematocrit 21.1 % L 01/18/21 0554 Mean Corpuscular Volume 110.5 fl H 01/18/21 0554 Mean Corpuscular Hemoglobin 35.6 pg H 01/18/21 0554 Mean Corpuscular Hemoglobin Concent 32.2 g/dl 01/18/21 0554 Red Cell Distribution Width 19.9 % H 01/18/21 05 Platelet Count 17 10^3/uL *L 01/18/21 05 Nucleated Red Blood Cells % (auto) 3.3 % H 01/18/21 05 Neutrophils 88 % H 01/18/21 0554 Lymphocytes (Manual) 10 % L 01/18/21 05 Monocytes (Manual) 1 % 01/18/21 05 Atypical Lymphocytes 1 % 01/18/21 05 Platelet Estimate MARKED DECREASE 01/18/21 0554 Anisocytosis 2+ 01/18/21 0554 Macrocytosis 2+ 01/18/21 0554 Tear Drop Cells 1+ 01/18/21 0554 Ovalocytes 1+ 01/18/21 05 Schistocytes 1+ 01/18/21 05 Item Value Date Time Prothrombin Time 19.1 SECONDS H 01/17/21 0617 Prothromb Time International Ratio 1.56 01/17/21 0617 Activated Partial Thromboplast Time 31.7 SECONDS 01/17/21 0617 Fibrinogen 219 MG/DL L 01/17/21 0617 D-Dimer, Quantitative > 4000 ng/ml H 01/17/21 0617 CBC/BMP Laboratory Tests 01/18/21 05:54 Microbiology Microbiology 01/11/21 Blood Culture - Final, Complete NO GROWTH AFTER 5 DAYS 01/11/21 Blood Culture - Final, Complete NO GROWTH AFTER 5 DAYS Item Value Date Time Coronavirus (COVID-19)(PCR) POSITIVE A 01/11/21247 Influenza Type A (RT-PCR) NEGATIVE 01/11/21247 Influenza Type B (RT-PCR) NEGATIVE 01/11/21247 Respiratory Syncytial Virus (PCR) NEGATIVE 01/11/21247 Mycoplasma pneumoniae IgG Antibody 455 U/mL H 01/11/21704 Mycoplasma pneumoniae IgM Antibody 795 U/mL H 01/11/21 07 Allergies Coded Allergies: No Known Allergies (Unverified , 04/01/19) Home Medications Scheduled Colesevelam Hydrochloride (Welchol) 625 Mg Tablet, 625 MG PO DAILY, (Reported) Furosemide (Furosemide) 20 Mg Tablet, 20 MG PO DAILY, (Reported) Multivitamins (Thera M Plus Tablet) 1 Each Tablet, 1 TAB PO DAILY, (Reported) Potassium Chloride (Potassium Chloride) 10 Meq Capsule.er, 10 MEQ PO DAILY, (Reported) Tamsulosin Hcl (Tamsulosin HCl) 0.4 Mg Capsule, 0.8 MG PO DAILY, (Reported) Miscellaneous Medications [Med Rec Comment] , (Reported) PT ALTERED USED EXTERNAL MED HISTORY AND LAST DISCHARGE IN 2020 [place] ANP Jan 18, 2021 13:26
[2021-01-19] VITALS (14 sets, daily range): BP systolic 92–115; BP diastolic 53–72; O2SAT 93–99
[2021-01-19] MEDS: dexameTHASONE 20MG/5ML VIAL (J1100 PER 1MG) IV SCH ×2 (00:56→10:32)
[2021-01-19 01:14] LABS: CK-MB VALUE MASS 7.4 NG/ML (<3.6); MB/CK RELATIVE INDEX 9.37 (< OR =4); TROPONIN I 0.31 NG/ML (< 0.10)
[2021-01-19 07:13] LABS: ALBUMIN 1.4 GM/DL (3.2-5.2); ALT/SGPT 73 U/L (12-78); BILIRUBIN,TOTAL 0.8 MG/DL (0.2-1.0); BLOOD UREA NITROGEN 45 MG/DL (7-18); CALCIUM LEVEL 7.6 MG/DL (8.8-10.2); CARBON DIOXIDE LEVEL 24 MEQ/L (21-32); CHLORIDE LEVEL 108 MEQ/L (98-107); CREATININE FOR GFR 0.61 MG/DL (0.70-1.30); FERRITIN 1257 NG/ML (26-388); GLOMERULAR FILTRATION RATE > 60.0 (>35); GLUCOSE, FASTING 87 MG/DL (70-100); NT-PRO BNP 467 PG/ML (<450); POTASSIUM SERUM 4.8 MEQ/L (3.5-5.1); SODIUM LEVEL 139 MEQ/L (136-145); TOTAL PROTEIN 5.1 GM/DL (6.4-8.2)
[2021-01-19] MEDS ORDERED: BARICITINIB 2MG TABLET (OLUMIANT) FOR EUA As Ordered ONE (10:20)
[2021-01-19] MEDS: TAMSULOSIN 0.4 MG CAP PO SCH (10:31)
[2021-01-19] MEDS: POTASSIUM CHLORIDE 10MEQ SR TABLET PO SCH (10:32)
[2021-01-19 11:30] LABS: BASO % 0.6 % (0.0-1.0); LYMPH # 0.3 10^3/uL (1.5-5.0); LYMPH % 17.6 % (24.0-44.0); MEAN CORPUSCULAR HEMOGLOBIN 33.4 pg (27.0-33.0); MEAN CORPUSCULAR VOLUME 101.2 fl (80.0-96.0); MONO % 1.2 % (2.0-8.0); NEUTROPHILS # 1.4 10^3/uL (1.5-8.5); RED BLOOD COUNT 3.26 10^6/uL (4.30-6.10); WHITE BLOOD COUNT 1.7 10^3/uL (4.0-10.0)
[2021-01-19 11:42] LABS: PLATELET COUNT, AUTOMATED 13 10^3/uL (150-450)
[2021-01-19 11:43] LABS: HEMOGLOBIN 10.9 g/dl (13.5-17.5)
[2021-01-19 11:52] LABS: CK-MB VALUE MASS 5.9 NG/ML (<3.6); MB/CK RELATIVE INDEX 6.56 (< OR =4); TROPONIN I 0.24 NG/ML (< 0.10)
[2021-01-19] MEDS: BARICITINIB 2MG TABLET (OLUMIANT) FOR EUA PO SCH (12:55)
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
[2021-01-20] VITALS (9 sets, daily range): BP systolic 103–118; BP diastolic 56–64; O2SAT 89–96
[2021-01-20 06:23] LABS: HEMATOCRIT 30.9 % (42.0-52.0); HEMOGLOBIN 10.2 g/dl (13.5-17.5); MEAN CORPUSCULAR HEMOGLOBIN 33.9 pg (27.0-33.0); MEAN CORPUSCULAR VOLUME 102.7 fl (80.0-96.0); RED BLOOD COUNT 3.01 10^6/uL (4.30-6.10); WHITE BLOOD COUNT 1.7 10^3/uL (4.0-10.0)
[2021-01-20 06:50] LABS: PLATELET COUNT, AUTOMATED 12 10^3/uL (150-450)
[2021-01-20 06:55] LABS: ALBUMIN 1.5 GM/DL (3.2-5.2); ALT/SGPT 67 U/L (12-78); BILIRUBIN,TOTAL 1.2 MG/DL (0.2-1.0); BLOOD UREA NITROGEN 42 MG/DL (7-18); CARBON DIOXIDE LEVEL 26 MEQ/L (21-32); CHLORIDE LEVEL 105 MEQ/L (98-107); CREATININE FOR GFR 0.63 MG/DL (0.70-1.30); GLOMERULAR FILTRATION RATE > 60.0 (>35); GLUCOSE, FASTING 70 MG/DL (70-100); POTASSIUM SERUM 4.8 MEQ/L (3.5-5.1); SODIUM LEVEL 137 MEQ/L (136-145); TOTAL PROTEIN 5.7 GM/DL (6.4-8.2)
[2021-01-20 06:57] LABS: LYMPHOCYTES 29 % (16-44); NEUTROPHILS 71 % (28-66); PLATELET ESTIMATE MARKED DECREASE (NORMAL)
--- NOTE | 2021-01-20 07:53 | ECGEPIP ---
[facility] Test Date: 2021-01-18 Pat Name: NEEL ASIF Department: Room: [place] [address] Gender: Male Manager Regulatory: : 1940 Requested By: NOLAN Garcia Order Number: [id number] Reading MD: Bahman Mar Measurements Intervals [place] Rate: 95 P: 73 NC: 126 QRS: 39 QRSD: 70 T: 31 QT: 340 QTc: 427 Interpretive Statements somatic artifact Normal sinus rhythm Slow precordial R wave progression; rule out prior septal infarction Slightly different precordial lead placement and slower heart rate from 01/11/21 Electronically Signed on 01-20-2021 7:53:42 EST by Bahman Mar
--- NOTE | 2021-01-20 07:55 | ECGEPIP ---
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
[2021-01-20] MEDS: BARICITINIB 2MG TABLET (OLUMIANT) FOR EUA PO SCH (08:56)
[2021-01-20] MEDS: POTASSIUM CHLORIDE 10MEQ SR TABLET PO SCH (08:56)
[2021-01-20] MEDS: dexameTHASONE 20MG/5ML VIAL (J1100 PER 1MG) IV SCH (08:56)
[2021-01-20] MEDS: TAMSULOSIN 0.4 MG CAP PO SCH (08:56)
[2021-01-20] MEDS: FILGRASTIM 300 MCG/0.5 ML SYRINGE **SC ADMINISTRATION ONLY SC SCH (11:34)
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
[2021-01-21] VITALS (17 sets, daily range): BP systolic 84–119; BP diastolic 44–57; O2SAT 91–100
[2021-01-21 07:30] LABS: HEMATOCRIT 26.8 % (42.0-52.0); HEMOGLOBIN 8.6 g/dl (13.5-17.5); MEAN CORPUSCULAR HEMOGLOBIN 33.2 pg (27.0-33.0); MEAN CORPUSCULAR HGB CONC 32.1 g/dl (32.0-36.5); MEAN CORPUSCULAR VOLUME 103.5 fl (80.0-96.0); RED BLOOD COUNT 2.59 10^6/uL (4.30-6.10); WHITE BLOOD COUNT 2.6 10^3/uL (4.0-10.0)
[2021-01-21 07:36] LABS: PLATELET COUNT, AUTOMATED 10 10^3/uL (150-450)
[2021-01-21 07:56] LABS: ALBUMIN 1.3 GM/DL (3.2-5.2); ALT/SGPT 53 U/L (12-78); BLOOD UREA NITROGEN 34 MG/DL (7-18); CALCIUM LEVEL 7.6 MG/DL (8.8-10.2); CARBON DIOXIDE LEVEL 30 MEQ/L (21-32); CHLORIDE LEVEL 104 MEQ/L (98-107); CREATININE FOR GFR 0.59 MG/DL (0.70-1.30); GLOMERULAR FILTRATION RATE > 60.0 (>35); GLUCOSE, FASTING 89 MG/DL (70-100); POTASSIUM SERUM 4.3 MEQ/L (3.5-5.1); SODIUM LEVEL 136 MEQ/L (136-145); TOTAL PROTEIN 4.9 GM/DL (6.4-8.2)
[2021-01-21] MEDS: TAMSULOSIN 0.4 MG CAP PO SCH (08:32)
[2021-01-21] MEDS: dexameTHASONE 20MG/5ML VIAL (J1100 PER 1MG) IV SCH (08:32)
[2021-01-21] MEDS: BARICITINIB 2MG TABLET (OLUMIANT) FOR EUA PO SCH (08:33)
[2021-01-21] MEDS: POTASSIUM CHLORIDE 10MEQ SR TABLET PO SCH (08:33)
--- NOTE | 2021-01-21 08:47 | ECGEPIP ---
[facility] Test Date: 2021-01-21 Pat Name: NEEL ASIF Department: Room: [place] [address] Gender: Male Corporate Communications Manager: JUSTINO : 1940 Requested By: Serena Abraham Order Number: [id number] Reading MD: Bahman Mar Measurements Intervals [place] Rate: 74 P: 68 AR: 130 QRS: 29 QRSD: 82 T: 42 QT: 370 QTc: 410 Interpretive Statements normal sinus rhythm Somewhat low limb voltages. QS pattern in V1 and V2; rule out prior septal infarction Slightly different precordial lead placement but otherwise unchanged from 01/19/21 Electronically Signed on 01-21-2021 8:47:25 EST by Bahman Mar
[2021-01-21 08:52] LABS: LYMPHOCYTES 13 % (16-44); MONOCYTES 3 % (0-5); NEUTROPHILS 77 % (28-66); POLYCHROMASIA 1+
[2021-01-21 08:53] LABS: ANISOCYTOSIS 2+; PLATELET ESTIMATE MARKED DECREASE (NORMAL)
[2021-01-21 08:56] LABS: POIKILOCYTOSIS 2+
[2021-01-21 08:58] LABS: HELMET CELLS 1+
[2021-01-21] MEDS: FILGRASTIM 300 MCG/0.5 ML SYRINGE **SC ADMINISTRATION ONLY SC SCH (10:30)
[2021-01-21] MEDS ORDERED: NS 500 ML IV ONE (15:20)
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
[2021-01-21 23:00] LABS: HEMATOCRIT 24.2 % (42.0-52.0); HEMOGLOBIN 7.9 g/dl (13.5-17.5); MEAN CORPUSCULAR HEMOGLOBIN 34.1 pg (27.0-33.0); MEAN CORPUSCULAR HGB CONC 32.6 g/dl (32.0-36.5); MEAN CORPUSCULAR VOLUME 104.3 fl (80.0-96.0); RED BLOOD COUNT 2.32 10^6/uL (4.30-6.10)
[2021-01-21 23:02] LABS: PLATELET COUNT, AUTOMATED 44 10^3/uL (150-450)
[2021-01-22] VITALS (7 sets, daily range): BP systolic 95–112; BP diastolic 48–56; O2SAT 92–93
[2021-01-22 05:49] LABS: HEMATOCRIT 26.2 % (42.0-52.0); HEMOGLOBIN 8.4 g/dl (13.5-17.5); MEAN CORPUSCULAR HEMOGLOBIN 33.9 pg (27.0-33.0); MEAN CORPUSCULAR HGB CONC 32.1 g/dl (32.0-36.5); MEAN CORPUSCULAR VOLUME 105.6 fl (80.0-96.0); RED BLOOD COUNT 2.48 10^6/uL (4.30-6.10); WHITE BLOOD COUNT 3.5 10^3/uL (4.0-10.0)
[2021-01-22 05:52] LABS: PLATELET COUNT, AUTOMATED 60 10^3/uL (150-450)
[2021-01-22 06:13] LABS: ALBUMIN 1.4 GM/DL (3.2-5.2); ALT/SGPT 50 U/L (12-78); BILIRUBIN,TOTAL 0.8 MG/DL (0.2-1.0); BLOOD UREA NITROGEN 28 MG/DL (7-18); CALCIUM LEVEL 7.4 MG/DL (8.8-10.2); CARBON DIOXIDE LEVEL 29 MEQ/L (21-32); CHLORIDE LEVEL 105 MEQ/L (98-107); GLOMERULAR FILTRATION RATE > 60.0 (>35); GLUCOSE, FASTING 70 MG/DL (70-100); POTASSIUM SERUM 3.9 MEQ/L (3.5-5.1); SODIUM LEVEL 138 MEQ/L (136-145); TOTAL PROTEIN 5.1 GM/DL (6.4-8.2)
[2021-01-22 06:15] LABS: ATYPICAL LYMPH 2 % (0-5); LYMPHOCYTES 26 % (16-44); NEUTROPHILS 68 % (28-66); PLATELET ESTIMATE DECREASED (NORMAL)
[2021-01-22 06:17] LABS: ANISOCYTOSIS 3+; HELMET CELLS 1+; POIKILOCYTOSIS 2+; POLYCHROMASIA 1+
[2021-01-22] MEDS: TAMSULOSIN 0.4 MG CAP PO SCH (11:02)
[2021-01-22] MEDS: BARICITINIB 2MG TABLET (OLUMIANT) FOR EUA PO SCH (11:02)
[2021-01-22] MEDS: dexameTHASONE 20MG/5ML VIAL (J1100 PER 1MG) IV SCH (11:03)
[2021-01-22] MEDS: POTASSIUM CHLORIDE 10MEQ SR TABLET PO SCH (11:03)
--- NOTE | 2021-01-22 14:03 | ECHO ---
ECHOCARDIOGRAM DATE OF PROCEDURE: 01/21/2021 Age: 80 Gender: Male Height: 72 inches Weight: 119 pounds Body surface area: 1.7 m2 PATIENT LOCATION: Inpatient, [address] [place] [address], Room 4105. REFERRING PHYSICIAN: Serena Solorzano M.D. INDICATION: Abnormal EKG, elevated troponin I. MEASUREMENTS: 2D Measurements: RV - 3.5 cm LV - 4.2 cm Septum 1.1 cm Posterior wall 1.1 cm Aortic root 3.2 cm LA - 3.2 cm LVEF 75% Doppler Measurements: AV - 1.23 m/sec LVOT - 0.8 m/sec LVOT diameter 2.1 cm MV-E 63, A 107, EA ratio 0.6 Early mitral deceleration time 246 msec E prime medial 8.1 A prime medial 9.4 E prime lateral 10.3 PV - 0.8 m/sec Pulmonary artery acceleration time 121 msec RVSP - 34 mmHg IVC - 1.5 cm COMMENTS: Normal sinus rhythm without intraventricular conduction disturbance. M-mode and 2-dimensional cardiography was performed with pulse, continuous wave, color flow and tissue Doppler studies. Normal left ventricular size, wall thickness and hyperkinetic wall motion. Normal left atrial size with grade 1 left ventricular (LV) diastolic dysfunction, but normal estimated mean left atrial pressure. Normal right heart chamber sizes and wall motion with Doppler sign of mild pulmonary hypertension. Normal inferior vena cava (IVC) size and collapse against an elevated central venous pressure. Normal aortic dimensions. Mild aortic valvular sclerosis without functional abnormality. Mild degenerative changes of the mitral valvular apparatus with normal leaflet excursion and no obvious posterior systolic buckling, but at least mild eccentrically directed mitral insufficiency toward the roof of the left atrium. Normal appearing tricuspid valve with mild insufficiency. No apparent intracardiac mass. Miniscule posterior pericardial effusion measuring 2 mmHg. MTDD
[2021-01-22] MEDS: FILGRASTIM 300 MCG/0.5 ML SYRINGE **SC ADMINISTRATION ONLY SC SCH (14:32)
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
[2021-01-22 16:04] LABS: NT-PRO BNP 251 PG/ML (<450)
[2021-01-22] MEDS: D5W/0.9% SODIUM CHLORIDE 1,000 ML IV SCH (16:30)
[2021-01-23 04:00] VITALS: BP 130/59
[2021-01-23] MEDS: D5W/0.9% SODIUM CHLORIDE 1,000 ML IV SCH ×2 (04:17→20:34)
[2021-01-23 05:58] LABS: ABG BASE EXCESS 3.1 (-2.0-2.0); ABG HCO3 26.6 MEQ/L (22.0-26.0); ABG O2 SATURATION 98.7 % (95.0-99.0); ABG PARTIAL PRESSURE CO2 35.7 mmHg (35.0-45.0); ABG PARTIAL PRESSURE O2 126.3 mmHg (75.0-100.0); ABG STANDARD HCO3 27.3 MEQ/L (22.0-26.0); ABG TOTAL CO2 27.7 MEQ/L (23.0-31.0)
--- NOTE | 2021-01-23 08:06 | REP ---
INDICATION: INTERVAL CHECK; CONCERN FOR SUPERIMPOSED INFECTIOUS PROCESS COMPARISON: 01/15/2021 TECHNIQUE: Portable AP view of the chest FINDINGS: Diffuse chronic changes are appreciated with increased moderate to large areas of opacity involving the right hemithorax and left lower lung zone. No definite effusion. No obvious pneumothorax. Mediastinum and cardiac silhouette are grossly stable. IMPRESSION: Progressively increased superimposed bilateral infiltrates (right greater than left). <Electronically signed by Alireza Tomas > 01/23/21 0802
[2021-01-23 08:47] LABS: BASO % 0.2 % (0.0-1.0); EOS % 0.2 % (0.0-3.0); HEMATOCRIT 26.1 % (42.0-52.0); HEMOGLOBIN 8.2 g/dl (13.5-17.5); LYMPH # 0.5 10^3/uL (1.5-5.0); LYMPH % 10.8 % (24.0-44.0); MEAN CORPUSCULAR HEMOGLOBIN 33.6 pg (27.0-33.0); MEAN CORPUSCULAR HGB CONC 31.4 g/dl (32.0-36.5); MONO % 0.9 % (2.0-8.0); NEUTROPHILS # 3.9 10^3/uL (1.5-8.5); NEUTROPHILS % 87.5 % (36.0-66.0); RED BLOOD COUNT 2.44 10^6/uL (4.30-6.10); WHITE BLOOD COUNT 4.5 10^3/uL (4.0-10.0)
[2021-01-23 08:49] LABS: PLATELET COUNT, AUTOMATED 43 10^3/uL (150-450)
[2021-01-23 09:05] LABS: ALBUMIN 1.4 GM/DL (3.2-5.2); ALT/SGPT 59 U/L (12-78); BILIRUBIN,TOTAL 0.9 MG/DL (0.2-1.0); BLOOD UREA NITROGEN 27 MG/DL (7-18); CALCIUM LEVEL 7.4 MG/DL (8.8-10.2); CARBON DIOXIDE LEVEL 30 MEQ/L (21-32); CHLORIDE LEVEL 108 MEQ/L (98-107); CREATININE FOR GFR 0.55 MG/DL (0.70-1.30); GLOMERULAR FILTRATION RATE > 60.0 (>35); GLUCOSE, FASTING 81 MG/DL (70-100); SODIUM LEVEL 141 MEQ/L (136-145); TOTAL PROTEIN 5.3 GM/DL (6.4-8.2)
[2021-01-23] MEDS: dexameTHASONE 20MG/5ML VIAL (J1100 PER 1MG) IV SCH (10:35)
[2021-01-23] MEDS: TAMSULOSIN 0.4 MG CAP PO SCH (10:35)
[2021-01-23] MEDS: BARICITINIB 2MG TABLET (OLUMIANT) FOR EUA PO SCH (10:36)
[2021-01-23] MEDS: POTASSIUM CHLORIDE 10MEQ SR TABLET PO SCH (10:36)
[2021-01-23 14:00] VITALS: BP 101/53
[2021-01-23] MEDS: FILGRASTIM 300 MCG/0.5 ML SYRINGE **SC ADMINISTRATION ONLY SC SCH (14:47)
[2021-01-23 15:40] LABS: NT-PRO BNP 380 PG/ML (<450)
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
[2021-01-23] MEDS: DOXYCYCLINE HYCLATE 100 MG in D5W MINI-BAG PLUS 100 ML IV SCH (16:18)
[2021-01-23] MEDS ORDERED: VANCOMYCIN HCL 1,000 MG, VIAL MATE ADAPTER 1 EACH in NS 250 ML IV ONE (18:00)
[2021-01-23] MEDS: LACTOBACILLUS ACIDOPHILUS CAP (BACID) PO SCH (18:21)
[2021-01-23] MEDS: CEFEPIME HCL 2 GM in D5W MINI-BAG PLUS 50 ML IV SCH (18:21)
[2021-01-23 20:00] VITALS: BP 98/50
[2021-01-23] MEDS: ACETAMINOPHEN TAB 650MG DOSE (2X325MG) PO PRN (20:44)
[2021-01-24] VITALS (8 sets, daily range): BP systolic 101–113; BP diastolic 51–57; O2SAT 95–100
[2021-01-24] MEDS: DOXYCYCLINE HYCLATE 100 MG in D5W MINI-BAG PLUS 100 ML IV SCH ×2 (03:12→15:22)
[2021-01-24] MEDS: CEFEPIME HCL 2 GM in D5W MINI-BAG PLUS 50 ML IV SCH ×2 (04:40→17:02)
[2021-01-24] MEDS ORDERED: VANCOMYCIN HCL 500 MG in D5W MINI-BAG PLUS 100 ML IV SCH (06:00)
[2021-01-24 07:39] LABS: HEMATOCRIT 24.2 % (42.0-52.0); HEMOGLOBIN 7.5 g/dl (13.5-17.5); MEAN CORPUSCULAR HEMOGLOBIN 33.3 pg (27.0-33.0); MEAN CORPUSCULAR VOLUME 107.6 fl (80.0-96.0); RED BLOOD COUNT 2.25 10^6/uL (4.30-6.10); WHITE BLOOD COUNT 4.4 10^3/uL (4.0-10.0)
[2021-01-24 08:01] LABS: ALBUMIN 1.3 GM/DL (3.2-5.2); ALT/SGPT 66 U/L (12-78); BILIRUBIN,TOTAL 0.7 MG/DL (0.2-1.0); BLOOD UREA NITROGEN 33 MG/DL (7-18); CALCIUM LEVEL 7.5 MG/DL (8.8-10.2); CARBON DIOXIDE LEVEL 29 MEQ/L (21-32); CHLORIDE LEVEL 109 MEQ/L (98-107); CREATININE FOR GFR 0.66 MG/DL (0.70-1.30); GLOMERULAR FILTRATION RATE > 60.0 (>35); GLUCOSE, FASTING 84 MG/DL (70-100); POTASSIUM SERUM 4.3 MEQ/L (3.5-5.1); SODIUM LEVEL 140 MEQ/L (136-145); TOTAL PROTEIN 4.8 GM/DL (6.4-8.2)
[2021-01-24 08:08] LABS: PLATELET COUNT, AUTOMATED 23 10^3/uL (150-450)
[2021-01-24] MEDS: BARICITINIB 2MG TABLET (OLUMIANT) FOR EUA PO SCH (09:24)
[2021-01-24] MEDS: dexameTHASONE 20MG/5ML VIAL (J1100 PER 1MG) IV SCH (09:24)
[2021-01-24] MEDS: POTASSIUM CHLORIDE 10MEQ SR TABLET PO SCH (09:25)
[2021-01-24] MEDS: D5W/0.9% SODIUM CHLORIDE 1,000 ML IV SCH ×2 (09:25→20:43)
[2021-01-24] MEDS: LACTOBACILLUS ACIDOPHILUS CAP (BACID) PO SCH ×2 (09:25→17:02)
[2021-01-24] MEDS: TAMSULOSIN 0.4 MG CAP PO SCH (09:25)
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
[2021-01-25] VITALS (8 sets, daily range): BP systolic 103–121; BP diastolic 50–70; O2SAT 93–99
[2021-01-25] MEDS: DOXYCYCLINE HYCLATE 100 MG in D5W MINI-BAG PLUS 100 ML IV SCH ×2 (03:19→16:17)
[2021-01-25] MEDS: CEFEPIME HCL 2 GM in D5W MINI-BAG PLUS 50 ML IV SCH ×2 (05:04→17:52)
[2021-01-25 07:35] LABS: HEMATOCRIT 27.3 % (42.0-52.0); HEMOGLOBIN 8.5 g/dl (13.5-17.5); MEAN CORPUSCULAR HEMOGLOBIN 34.1 pg (27.0-33.0); MEAN CORPUSCULAR HGB CONC 31.1 g/dl (32.0-36.5); MEAN CORPUSCULAR VOLUME 109.6 fl (80.0-96.0); RED BLOOD COUNT 2.49 10^6/uL (4.30-6.10); WHITE BLOOD COUNT 4.3 10^3/uL (4.0-10.0)
[2021-01-25 07:40] LABS: PLATELET COUNT, AUTOMATED 21 10^3/uL (150-450)
[2021-01-25 07:51] LABS: ALBUMIN 1.3 GM/DL (3.2-5.2); ALT/SGPT 70 U/L (12-78); BILIRUBIN,TOTAL 0.7 MG/DL (0.2-1.0); BLOOD UREA NITROGEN 27 MG/DL (7-18); CALCIUM LEVEL 7.4 MG/DL (8.8-10.2); CARBON DIOXIDE LEVEL 24 MEQ/L (21-32); CHLORIDE LEVEL 108 MEQ/L (98-107); CREATININE FOR GFR 0.54 MG/DL (0.70-1.30); GLOMERULAR FILTRATION RATE > 60.0 (>35); GLUCOSE, FASTING 71 MG/DL (70-100); POTASSIUM SERUM 4.3 MEQ/L (3.5-5.1); SODIUM LEVEL 137 MEQ/L (136-145); TOTAL PROTEIN 5.4 GM/DL (6.4-8.2)
[2021-01-25] MEDS: TAMSULOSIN 0.4 MG CAP PO SCH (08:06)
[2021-01-25] MEDS: LACTOBACILLUS ACIDOPHILUS CAP (BACID) PO SCH ×2 (08:06→17:52)
[2021-01-25] MEDS: POTASSIUM CHLORIDE 10MEQ SR TABLET PO SCH (08:06)
[2021-01-25] MEDS: BARICITINIB 2MG TABLET (OLUMIANT) FOR EUA PO SCH (08:06)
[2021-01-25] MEDS: dexameTHASONE 20MG/5ML VIAL (J1100 PER 1MG) IV SCH (08:07)
[2021-01-25] MEDS: D5W/0.9% SODIUM CHLORIDE 1,000 ML IV SCH (09:15)
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
[2021-01-26 00:04] VITALS: O2SAT 99
[2021-01-26] MEDS: DOXYCYCLINE HYCLATE 100 MG in D5W MINI-BAG PLUS 100 ML IV SCH ×2 (03:51→16:50)
[2021-01-26] MEDS: D5W/0.9% SODIUM CHLORIDE 1,000 ML IV SCH ×2 (03:51→16:51)
[2021-01-26 04:00] VITALS: BP 122/82; O2SAT 92
[2021-01-26] MEDS: CEFEPIME HCL 2 GM in D5W MINI-BAG PLUS 50 ML IV SCH ×2 (04:53→16:50)
[2021-01-26 08:51] LABS: HEMATOCRIT 25.2 % (42.0-52.0); HEMOGLOBIN 8.2 g/dl (13.5-17.5); MEAN CORPUSCULAR HEMOGLOBIN 34.2 pg (27.0-33.0); MEAN CORPUSCULAR HGB CONC 32.5 g/dl (32.0-36.5); WHITE BLOOD COUNT 3.1 10^3/uL (4.0-10.0)
[2021-01-26 08:56] LABS: PLATELET COUNT, AUTOMATED 19 10^3/uL (150-450)
[2021-01-26 09:24] LABS: ALBUMIN 1.4 GM/DL (3.2-5.2); ALT/SGPT 70 U/L (12-78); BILIRUBIN,TOTAL 0.7 MG/DL (0.2-1.0); BLOOD UREA NITROGEN 24 MG/DL (7-18); CALCIUM LEVEL 7.5 MG/DL (8.8-10.2); CARBON DIOXIDE LEVEL 26 MEQ/L (21-32); CHLORIDE LEVEL 106 MEQ/L (98-107); CREATININE FOR GFR 0.46 MG/DL (0.70-1.30); GLOMERULAR FILTRATION RATE > 60.0 (>35); GLUCOSE, FASTING 74 MG/DL (70-100); POTASSIUM SERUM 3.8 MEQ/L (3.5-5.1); SODIUM LEVEL 137 MEQ/L (136-145); TOTAL PROTEIN 5.1 GM/DL (6.4-8.2)
[2021-01-26] MEDS: dexameTHASONE 20MG/5ML VIAL (J1100 PER 1MG) IV SCH (09:59)
[2021-01-26] MEDS: POTASSIUM CHLORIDE 10MEQ SR TABLET PO SCH (10:00)
[2021-01-26] MEDS: TAMSULOSIN 0.4 MG CAP PO SCH (10:00)
[2021-01-26] MEDS: BARICITINIB 2MG TABLET (OLUMIANT) FOR EUA PO SCH (10:00)
[2021-01-26] MEDS: LACTOBACILLUS ACIDOPHILUS CAP (BACID) PO SCH ×2 (10:00→16:50)
[2021-01-26] MEDS: ACETAMINOPHEN TAB 650MG DOSE (2X325MG) PO PRN (10:05)
[2021-01-26 11:07] VITALS: O2SAT 94
[2021-01-26 14:00] VITALS: BP 110/71
[2021-01-26 16:00] VITALS: O2SAT 96
--- NOTE | 2021-01-26 17:35 | IPNPDOC ---
Date Seen The patient was seen on 01/26/21. I was called in the morning by the inpatient service in order to give a follow- up on the patient was earlier on seen in consultation.. The main question at this stage revolves around the use of platelet transfusions at this time when his platelet count is roughly about 19,000. And examination of the patient in the room revealed that he was having no bleeding from any critical site although there were some areas on the anterior body of slightly increased bruising. The hemoglobin was 8.2 white count 3.1 and platelet count of 19,000. Some of the other lab findings of today include sodium 137 potassium 3.8 creatinine 0.54 mild liver function abnormalities and an albumin level of 1.4. His coagulation profile reveals an INR ranging between 1.16 and 1.56 and the APTT has been in the low 30s. The D-dimer has been greater than 4000. When seen in the room the patient appeared to be somewhat dazed withdrawn and as can be imagined was unable to give any detailed account to me but neither was he pressurized to do so given the reasons for him to be seen at this time but largely to assess the need for platelet transfusions.. Progress Note SUBJECTIVE: Patient is a 80-year-old white male laying in his bed comfortably OBJECTIVE PHYSICAL EXAMINATION: VITAL SIGNS: Please see below. GENERAL: He was awake and alert in the evening elderly and hard of hearing HEENT: No gross abnormality CARDIOVASCULAR: . RESPIRATORY: Decreased breath sounds bilaterally. ABDOMINAL: Soft nontender normal bowel sounds EXTREMITIES: The lower limbs were in stockings no tenderness was felt NEUROLOGICAL: Brief examination revealed him to be alert but no focal deficits were noted The skin examination revealed occasional ecchymotic spots Impression: On this follow-up visit the patient appears to be stable with Covid 19 under treatment. Given the fact that he has a bone marrow hypoplastic state clearly the risks from the point of view of his primary hematologic status as well as the Covid itself is unpredictable but he seems to be holding his own and is stable. His DVT prophylaxis is being carried out at this time with RICCI hoses and stockings no anticoagulants are being offered because of thrombocytopenia at this time and the risk reward favors the former action. As far as the thrombocytopenia is concerned the level that is holding it 19,000 without any bleeding requires no active intervention in the form of platelet transfusion at this time in my opinion. Very to actively bleed then the rules of treatment would change and platelet transfusions would be needed. In general and aplastic anemia irradiated platelets are preferred. At this time I would recommend observation and assessment on a daily basis of his platelet numbers would be the appropriate clinical choice and our service will try and keep an eye on this as well. If you have any further questions please do not hesitate to contact us VS, I&O, 24H, Fishbone Vital Signs/I&O Vital Signs Date Time Temp Pulse Resp B/P (MAP) Pulse Ox O2 Delivery O2 Flow Rate FiO2 01/26/21 14:00 97.2 75 18 110/71 (84) 100 High Flow Cannula 10.0 01/24/21 15:06 50 I&O- Last 24 Hours up to 6 AM 01/26/21 06:00 Intake Total 2400 ml Balance 2400 ml Laboratory Data 24H LABS Laboratory Tests 2 01/26/21 08:24: Nucleated Red Blood Cells % (auto) 0.0, Immature Platelet Fraction 7.0, Anion Gap 5L, Glomerular Filtration Rate > 60.0, Calcium Level 7.5L, Total Bilirubin 0.7, Aspartate Amino Transf (AST/SGOT) 58H, Alanine Aminotransferase (ALT/SGPT) 70, Alkaline Phosphatase 234H, Total Protein 5.1L, Albumin 1.4L, Albumin/Globulin Ratio 0.4, Procalcitonin 0.36 CBC/BMP Laboratory Tests 01/26/21 08:24 Microbiology Microbiology 01/21/21 Blood Culture - Final, Complete NO GROWTH AFTER 5 DAYS 01/21/21 Blood Culture - Final, Complete NO GROWTH AFTER 5 DAYS LEIGH CEDILLOCP Jan 26, 2021 17:35
[2021-01-26 20:00] VITALS: BP 103/84; O2SAT 100
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
[2021-01-27] VITALS: O2SAT 91
[2021-01-27] MEDS: DOXYCYCLINE HYCLATE 100 MG in D5W MINI-BAG PLUS 100 ML IV SCH ×2 (03:43→17:05)
[2021-01-27 04:00] VITALS: O2SAT 95
[2021-01-27] MEDS: CEFEPIME HCL 2 GM in D5W MINI-BAG PLUS 50 ML IV SCH (04:54)
[2021-01-27] MEDS: D5W/0.9% SODIUM CHLORIDE 1,000 ML IV SCH ×2 (04:54→17:05)
[2021-01-27] MEDS: LACTOBACILLUS ACIDOPHILUS CAP (BACID) PO SCH ×2 (08:00→11:12)
[2021-01-27 08:25] LABS: MEAN CORPUSCULAR HEMOGLOBIN 33.8 pg (27.0-33.0); MEAN CORPUSCULAR VOLUME 105.5 fl (80.0-96.0); RED BLOOD COUNT 2.37 10^6/uL (4.30-6.10); WHITE BLOOD COUNT 2.8 10^3/uL (4.0-10.0)
[2021-01-27 08:28] LABS: PLATELET COUNT, AUTOMATED 17 10^3/uL (150-450)
[2021-01-27 08:53] LABS: ALBUMIN 1.4 GM/DL (3.2-5.2); ALT/SGPT 65 U/L (12-78); BILIRUBIN,TOTAL 0.8 MG/DL (0.2-1.0); BLOOD UREA NITROGEN 27 MG/DL (7-18); CALCIUM LEVEL 7.6 MG/DL (8.8-10.2); CARBON DIOXIDE LEVEL 28 MEQ/L (21-32); CHLORIDE LEVEL 106 MEQ/L (98-107); CREATININE FOR GFR 0.42 MG/DL (0.70-1.30); GLOMERULAR FILTRATION RATE > 60.0 (>35); GLUCOSE, FASTING 75 MG/DL (70-100); POTASSIUM SERUM 4.1 MEQ/L (3.5-5.1); SODIUM LEVEL 138 MEQ/L (136-145); TOTAL PROTEIN 4.9 GM/DL (6.4-8.2)
--- NOTE | 2021-01-27 10:55 | REP ---
INDICATION: GIB COMPARISON: None. TECHNIQUE: Two portable supine views of the abdomen and pelvis. FINDINGS: Bowel gas pattern is nonspecific and without obstruction or perforation. No organomegaly. No abnormal calcifications. Skeletal structures demonstrate age-related degenerative changes including chronic levoconvex scoliosis through the lumbar spine. IMPRESSION: Nonspecific abdominal gas pattern. <Electronically signed by Alireza Tomas > 01/27/21 [id number]
[2021-01-27] MEDS: POTASSIUM CHLORIDE 10MEQ SR TABLET PO SCH (11:12)
[2021-01-27] MEDS: dexameTHASONE 20MG/5ML VIAL (J1100 PER 1MG) IV SCH (11:13)
[2021-01-27] MEDS: BARICITINIB 2MG TABLET (OLUMIANT) FOR EUA PO SCH (11:13)
[2021-01-27] MEDS: PANTOPRAZOLE 40MG VIAL (C9113 PER 1) IV SCH (11:13)
[2021-01-27] MEDS: TAMSULOSIN 0.4 MG CAP PO SCH (11:17)
[2021-01-27 14:00] VITALS: BP 95/56
[2021-01-27 14:11] VITALS: BP 116/62
[2021-01-27 20:00] VITALS: BP 117/61
[2021-01-27 20:28] VITALS: O2SAT 92
[2021-01-27] MEDS ORDERED: ONDANSETRON 4MG/2ML VIAL IV PRN (21:15)
[2021-01-27] MEDS ORDERED: ATROPINE SULFATE 1% OP SOLN 2 ML BTL SL PRN (21:15)
[2021-01-27] MEDS ORDERED: SCOPOLAMINE 1MG TRANSDERMAL PATCH TOP PRN (21:15)
[2021-01-27] MEDS ORDERED: HYOSCYAMINE SULFATE 0.125 MG SUBL TABLET PO PRN (21:15)
[2021-01-27] MEDS ORDERED: MORPHINE 2 MG/ML 1ML VIAL (J2270) IV PRN (21:15)
[2021-01-27] MEDS ORDERED: LORazepam 2 MG/ML VIAL IV PRN (21:15)
[2021-01-27] MEDS ORDERED: ONDANSETRON 4 MG ORAL DISINTEGRATING TAB PO PRN (21:15)
[2021-01-27] MEDS ORDERED: BISACODYL 10 MG SUPP PR PRN (21:15)
[2021-01-27] MEDS ORDERED: FLEET ENEMA PR PRN (21:15)
[2021-01-28] VITALS (11 sets, daily range): BP systolic 90–122; BP diastolic 51–80; O2SAT 91–92
[2021-01-28] MEDS: PANTOPRAZOLE 40MG VIAL (C9113 PER 1) IV SCH ×3 (01:12→22:21)
[2021-01-28] MEDS: LACTOBACILLUS ACIDOPHILUS CAP (BACID) PO SCH ×2 (08:00→18:00)
[2021-01-28] MEDS: TAMSULOSIN 0.4 MG CAP PO SCH (09:00)
[2021-01-28] MEDS: MORPHINE 10MG/0.5ML ORAL CONCENTRATE SOLUTION U/D SL PRN ×2 (12:12→14:33)
[2021-01-29 08:00] VITALS: O2SAT 92
[2021-01-29 08:26] LABS: ALBUMIN 1.7 GM/DL (3.2-5.2); ALT/SGPT 51 U/L (12-78); BILIRUBIN,TOTAL 1.1 MG/DL (0.2-1.0); BLOOD UREA NITROGEN 33 MG/DL (7-18); CALCIUM LEVEL 7.8 MG/DL (8.8-10.2); CARBON DIOXIDE LEVEL 25 MEQ/L (21-32); CHLORIDE LEVEL 105 MEQ/L (98-107); CREATININE FOR GFR 0.63 MG/DL (0.70-1.30); GLOMERULAR FILTRATION RATE > 60.0 (>35); GLUCOSE, FASTING 74 MG/DL (70-100); MAGNESIUM LEVEL 2.2 MG/DL (1.8-2.4); POTASSIUM SERUM 4.5 MEQ/L (3.5-5.1); SODIUM LEVEL 137 MEQ/L (136-145)
[2021-01-29] MEDS: PANTOPRAZOLE 40MG VIAL (C9113 PER 1) IV SCH ×2 (09:17→23:23)
[2021-01-29] MEDS: LACTOBACILLUS ACIDOPHILUS CAP (BACID) PO SCH ×2 (09:17→17:18)
[2021-01-29] MEDS: LORazepam 1 MG TAB PO PRN (09:17)
[2021-01-29] MEDS: TAMSULOSIN 0.4 MG CAP PO SCH (09:17)
[2021-01-30] MEDS: MORPHINE 10MG/0.5ML ORAL CONCENTRATE SOLUTION U/D SL PRN ×2 (02:01→14:09)
[2021-01-30] MEDS: TAMSULOSIN 0.4 MG CAP PO SCH (08:46)
[2021-01-30] MEDS: LACTOBACILLUS ACIDOPHILUS CAP (BACID) PO SCH ×2 (08:47→17:30)
[2021-01-30] MEDS: LORazepam 1 MG TAB PO PRN (09:57)
[2021-01-30] MEDS: PANTOPRAZOLE 40MG VIAL (C9113 PER 1) IV SCH ×2 (11:30→22:43)
[2021-01-31] MEDS: TAMSULOSIN 0.4 MG CAP PO SCH (09:40)
[2021-01-31] MEDS: LACTOBACILLUS ACIDOPHILUS CAP (BACID) PO SCH (09:40)
[2021-01-31] MEDS: PANTOPRAZOLE 40MG VIAL (C9113 PER 1) IV SCH (12:22)
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
== END 2021-01-31 18:49 | disposition expired | DRG 177 ==
LOC: M ED 00:58 → M ED INP 05:11 → ENRESERV 10:15 → M 4MAIN 11:00
PROVIDERS: ADMIT Family Medicine; ATTEND Family Medicine
PROC: XW033E5 Introduction of Remdesivir Anti-infective into Peripheral Vein, Percutaneous Approach, New Technology Group 5 (ICD-10-PCS; principal; 2021-01-14)
PROC: 3E0333Z Introduction of Anti-inflammatory into Peripheral Vein, Percutaneous Approach (ICD-10-PCS; 2021-01-14)
PROC: 30233N1 Transfusion of Nonautologous Red Blood Cells into Peripheral Vein, Percutaneous Approach (ICD-10-PCS; 2021-01-18)
DX: U07.1 COVID-19 (principal); G93.41 Metabolic encephalopathy; J12.82 Pneumonia due to coronavirus disease 2019; J18.9 Pneumonia, unspecified organism; J96.01 Acute respiratory failure with hypoxia; E43 Unspecified severe protein-calorie malnutrition; D61.9 Aplastic anemia, unspecified; E87.2 Acidosis; E46 Unspecified protein-calorie malnutrition; Z68.1 Body mass index [BMI] 19.9 or less, adult; Z66 Do not resuscitate; G31.84 Mild cognitive impairment of uncertain or unknown etiology; E78.5 Hyperlipidemia, unspecified; Z79.899 Other long term (current) drug therapy; T58.91XA Toxic effect of carbon monoxide from unspecified source, accidental (unintentional), initial encounter; D75.89 Other specified diseases of blood and blood-forming organs; E86.0 Dehydration; Z98.41 Cataract extraction status, right eye; Z98.42 Cataract extraction status, left eye; Z87.891 Personal history of nicotine dependence; R74.01 Elevation of levels of liver transaminase levels; Z72.3 Lack of physical exercise; I95.9 Hypotension, unspecified; R62.7 Adult failure to thrive; D69.6 Thrombocytopenia, unspecified